=== PATIENT | male | born 1975 | race Caucasian/White ===

== ENCOUNTER 2017-03-15 06:02 | Inpatient (IN) | payer OTHER ==
[2017-03-15] MEDS ORDERED: LIDOCAINE 1% 2 ML INJ ID PRN (06:40)
[2017-03-15] MEDS ORDERED: LR 1,000 ML IV ONE (06:40)
[2017-03-15] MEDS ORDERED: MIDAZOLAM 2 MG/2 ML VIAL IVP ONE (06:53)
--- NOTE | 2017-03-15 06:54 | PDANEPAE ---
ANE History of Present Illness recurrent diverticulitis ANE Past Medical History - Cardiovascular History Hx Hypertension: No Hx Arrhythmias: No Hx Chest Pain: No Hx Coronary Artery / Peripheral Vascular Disease: No Hx CHF / Valvular Disease: No Hx Palpitations: No - Pulmonary History Hx COPD: No Hx Asthma/Reactive Airway Disease: No Hx Recent Upper Respiratory Infection: No Hx Oxygen in Use at Home: No Hx Sleep Apnea: No Sleep Apnea Screening Result - Last Documented: Negative - Neurologic History Hx Cerebrovascular Accident: No Hx Seizures: No Hx Dementia: No - Endocrine History Hx Diabetes: No Hypothyroid: No Hyperthyroid: No Obesity: no - Renal History Hx Renal Disorders: No - Liver History Hx Hepatic Disorders: No - Neurological & Psychiatric Hx Hx Neurological and Psychiatric Disorders: No - Cancer History Hx Cancer: No - Congenital Disorder History Hx Congenital Disorders: No - GI History GERD: no Hx Gastrointestinal Disorders: Yes Gastrointestinal History Comment: sigmoid diverticulitis-perforation w/ 2nd bout. - Other Health History Other Health History: none - Chronic Pain History Chronic Pain: No - Surgical History Prior Surgeries: ganglion cyst-hand ANE Review of Systems Review of Systems: - Exercise capacity METS (RN): 5 METS ANE Patient History - Allergies Allergies/Adverse Reactions: No Known Allergies Allergy (Verified 02/14/17 11:01) - Home Medications Home Medications: Propranolol HCl [Inderal 20mg (*)] 20 mg PO DAILY PRN 05/16/15 [Last Taken 3 Weeks Ago ~02/22/17] Acetaminophen [Tylenol 325mg (*)] 325 mg PO DAILY PRN 02/07/17 [Last Taken 1 Week Ago ~03/08/17] Herbals/Supplements -Info Only 1 ea PO DAILY 02/07/17 [Last Taken 1 Week Ago ~] - NPO status NPO Since - Liquids (Date): 03/14/17 NPO Since - Liquids (Time): 23:00 NPO Since - Solids (Date): 03/14/17 NPO Since - Solids (Time): 09:30 - Anes Hx Hx Anesthesia Complications (with details): no prior surgery - Smoking Hx Smoking Status: Former smoker - Alcohol Use Alcohol Use: Occasionally - Family Anes Hx Family Anes Hx: neg - N/A Family Hx Anesthesia Complications: none ANE Labs/Vital Signs - Vital Signs Blood Pressure: 126/83 Heart Rate: 77 Respiratory Rate: 18 O2 Sat (%): 94 Height: 182.88 cm Weight: 76.204 kg ANE Physical Exam - Airway Neck exam: FROM Mallampati Score: Class 1 Mouth exam: normal dental/mouth exam - Pulmonary Pulmonary: no respiratory distress, no rales or rhonchi, clear to auscultation - Cardiovascular Cardiovascular: regular rate and rhythym, no murmur, rub, or gallop - ASA Status ASA Status: II ANE Anesthesia Plan Anesthesia Plan: general endotracheal anesthesia
[2017-03-15] MEDS ORDERED: BUPIVACAINE 0.5% 30 ML SDV ONE ×2 (07:10→07:59)
[2017-03-15] MEDS ORDERED: cefOXitin SODIUM 2 GM in D5W 100 ML IV ONE (07:21)
--- NOTE | 2017-03-15 07:21 | PDHPUP ---
History & Physical Update H&P update statement: This history and physical update is based on an assessment of the patient which was completed after admission or registration (within 24 hours), but prior to the surgery/procedure. H&P update: H&P reviewed & patient examined, no change in patient's condition since H&P completed
[2017-03-15] MEDS ORDERED: ONDANSETRON 4 MG/2 ML VIAL ONE (07:27)
[2017-03-15] MEDS ORDERED: PROPOFOL/EMULSION 500 MG/50 ML BOTTLE IV ONE ×2 (07:27→09:56)
[2017-03-15] MEDS ORDERED: fentaNYL 100 MCG/2 ML INJ ONE ×5 (07:27→13:57)
[2017-03-15] MEDS ORDERED: REMIFENTANIL HCL 1 MG VIAL ONE ×2 (07:27→09:56)
[2017-03-15] MEDS ORDERED: DEXAMETHASONE 4 MG/ML VIAL ONE (07:27)
[2017-03-15] MEDS ORDERED: PROPOFOL 200 MG/20 ML VIAL ONE (07:27)
[2017-03-15] MEDS ORDERED: LIDOCAINE 2% 5 ML SDV ONE (07:28)
[2017-03-15] MEDS ORDERED: ROCURONIUM 100 MG/10 ML VIAL ONE (07:28)
[2017-03-15] MEDS ORDERED: PROMETHAZINE HCL 25 MG/ML INJ IVP PRN (08:32)
[2017-03-15] MEDS ORDERED: ONDANSETRON 4 MG/2 ML VIAL IVP PRN ×2 (08:32→11:19)
[2017-03-15] MEDS ORDERED: MEPERIDINE 25 MG/ML SYR IVP PRN (08:32)
[2017-03-15] MEDS ORDERED: HYDROCODONE/APAP 5/325 TAB PO PRN (08:32)
[2017-03-15] MEDS ORDERED: OXYCODONE/APAP 5/325 TAB PO PRN (08:32)
[2017-03-15] MEDS ORDERED: NALOXONE HCL 0.4 MG/ML INJ IVP PRN ×2 (08:32→13:50)
[2017-03-15] MEDS ORDERED: LR 500 ML IV PRN (08:32)
[2017-03-15] MEDS ORDERED: ACETAMINOPHEN 500 MG TAB PO PRN (08:32)
[2017-03-15] MEDS ORDERED: HYDROmorphone HCL/NS/PF 0.4 MG/2 ML SYR IVP PRN (11:20)
--- NOTE | 2017-03-15 11:21 | POSTOPPROG ---
Post Op Note Date of Operation: 03/15/17 Surgeon: Fredy Wilde [employer]: Dr. An Anesthesiologist: Dr. Crump Anesthesia: GET(General Endotracheal) Pre-op Diagnosis: Diverticulitis Post-op Diagnosis: same Procedure: Robotic sigmoid colectomy Inf/Abcess present in the surg proc area at time of surgery?: Yes Depth: Organ Space EBL: 50-100
--- NOTE | 2017-03-15 11:26 | POSTANESTH ---
Post Anesthetic Evaluation Cardiovascular Status: Normal, Stable Respiratory Status: Normal, Stable Level of Consciousness/Mental Status: Can Participate in Eval Pain Control: Adequate, Prn Tx Ordered Nausea/Vomiting Control: Adequate, Prn Tx Ordered Complications Possibly Related to Anesthesia: None Noted
[2017-03-15] MEDS ORDERED: HYDROmorphONE/DILAUDID 1 MG/ML INJ ONE ×3 (11:32→13:44)
[2017-03-15] MEDS: fentaNYL 100 MCG/2 ML INJ IVP PRN ×5 (11:32→13:59)
[2017-03-15] MEDS: HYDROmorphONE/DILAUDID 1 MG/ML INJ IVP PRN ×7 (11:34→13:45)
[2017-03-15] MEDS: HYDROmorphONE/DILAUDID 6 MG/30 ML PCA IV PRN (14:50)
[2017-03-15] MEDS: GABAPENTIN 300 MG CAP PO SCH ×2 (15:49→22:23)
[2017-03-15] MEDS ORDERED: NS BOLUS 1000 ML (Wide open) IV ONE (21:30)
[2017-03-15] MEDS ORDERED: PROPRANOLOL HCL 20 MG TAB PO PRN (21:55)
--- NOTE | 2017-03-16 00:57 | CPEKG ---
Heart Rate: 102 RR Interval: 588 P-R Interval: 140 QRSD Interval: 86 QT Interval: 320 QTC Interval: 417 P Butternut: 54 QRS Butternut: 14 T Wave Butternut: 24 EKG Severity - OTHERWISE NORMAL ECG - EKG Impression: SINUS TACHYCARDIA Electronically Signed By: Shahnaz Gonzales 16-Mar-2017 08:22:42
[2017-03-16] MEDS: LR 1,000 ML IV SCH ×4 (01:50→22:23)
--- NOTE | 2017-03-16 02:44 | GOP ---
[f rep st] OPERATIVE REPORT DATE OF OPERATION: 03/15/2017 SURGEON: Enrico Wilde MD PIPELINE SYSTEMS OPERATOR: Dr. An, whose presence was requested by me and medically necessary for the safe and timely completion of this case. ANESTHESIA: General endotracheal anesthesia. ANESTHESIOLOGIST: Dr. Crump. PREOPERATIVE DIAGNOSIS: Diverticulitis. POSTOPERATIVE DIAGNOSIS: Diverticulitis. PROCEDURE PERFORMED: Robotic sigmoid colectomy. FINDINGS: The patient had mild inflammation of the mid sigmoid colon. No other lesions were identified. ESTIMATED BLOOD LOSS: 50 cc. INDICATIONS: This is a 41-year-old male with a history of diverticulitis. Patient had recurrent bouts. Risks and benefits of the procedure were discussed with the patient, questions were answered, and he wished to proceed. DESCRIPTION OF PROCEDURE: The patient was in the supine position initially. After induction of adequate general endotracheal anesthesia, the patient was moved to the modified lithotomy position. Hebert catheter was inserted. He was then prepped and draped in the standard surgical fashion. 0.5% Marcaine was injected throughout the periumbilical area for local, and an 8 mm incision was made. The abdominal wall was elevated and a Veress needle was inserted. After noting proper pressures, the abdomen was insufflated with carbon dioxide. An 8 mm trocar was passed and the camera followed. There was no apparent damage from trocar placement. Four more ports were placed, two 8 mm ports in the left abdomen, one 5 mm port in the right upper quadrant, and one 15 mm port in the right lower quadrant. These were all placed under direct vision after injecting 0.5% Marcaine for local anesthesia. The abdomen was inspected. Mild adhesions were noted to the sigmoid colon and the anterior abdominal wall. Colon appeared minimally inflamed in this area. The remainder of the colon appeared normal. The small bowel and liver were normal as well. Dissection was initiated near the inferior mesenteric artery. The peritoneum was incised and the artery was dissected. In addition, the left ureter was identified. It was seen and preserved throughout the entire case. The inferior mesenteric artery was divided using the vessel sealing device. The mesentery was then transected down to the level of the peritoneal reflection. There was no inflammation seen in this area. The rectum was then cleared off for transection. The robotic stapler with a blue load was used to transect the colon. Two firings were required to complete this. The area was inspected and good viability was noted. The remainder of the mesentery was taken proximally up to the point of transection. This was approximately the mid descending colon. The mesentery and then the appendices epiploica were cleared off using blunt dissection and the vessel sealing device. The decision was made to proceed with intracorporeal anastomosis. A colotomy was made in the mid sigmoid colon. A 29 EEA anvil was selected and this was passed in through the enlarged 15 mm port. The anvil was placed into the colotomy and milked to the mid descending colon. Then 0 Prolene suture had been tied and spiked for identification purposes. The area of transection was identified again and the anvil and spike were just proximal to this. Two more firings of the blue robotic stapler were used to transect this proximal end of the sigmoid colon. The specimen was then moved to the side of the field. The anvil and spike were then milked to the staple line. The spike was extruded and the spike and suture were removed from the anvil itself. These were taken out of the abdomen without difficulty. The pelvis was thoroughly irrigated and aspirated. Good hemostasis was noted. The descending colon with the anvil in place was set into the pelvis. This ensured that there was no twisting or tension. Next, the 29 EEA stapler was advanced through the anus and the rectum. The spike on the stapler side was extended and this was mated to the anvil. The spike was withdrawn, the stapler was fired. Upon removing the stapler, 2 intact donuts were identified. The pelvis was then filled with irrigating saline and the proximal colon was occluded. Air was then insufflated via the rectum and no leak was identified. This test was repeated and again no leak was identified. The abdomen was then thoroughly irrigated and aspirated. Good hemostasis noted throughout. No other lesions identified. The specimen was then extracted at the right lower quadrant port site. After undocking the robot and clamping the colon specimen with a locking grasper, the right lower quadrant incision was enlarged using a #15 blade. This was carried down to subcutaneous tissue with Bovie cautery and blunt dissection. An Tru wound protector was placed. The specimen was then withdrawn through this and sent for permanent section. The area was inspected and good hemostasis noted throughout. The wound protector was withdrawn. The muscles closed in layers using 0 PDS in a running fashion. Subcutaneous tissue was approximated using 3- 0 Vicryl in interrupted fashion. Skin at all sites was closed with 4-0 Monocryl using a subcuticular stitch after irrigating each wound. Wounds were sterilely dressed. The patient was returned to the supine position and extubated. He was then taken to PACU in stable condition. COMPLICATIONS: None. DRAINS: None. /[id number]/MODL MTDD
[2017-03-16] MEDS: HYDROmorphONE/DILAUDID 6 MG/30 ML PCA IV PRN (05:32)
--- NOTE | 2017-03-16 09:38 | SOAPPROG ---
SOAP Progress Note Assessment/Plan: Assessment: Stable to improved. D/w patient at length: uncertain as to etiology of tachycardia, but likely combined blood loss and RUQ pain. As he has improved, will d/c valero and ambulate patient. Signs/symptoms of concern discussed. Plan advancing diet if he tolerates ambulation well. Will hold off on imaging for now, but may require if tachycardia/pain return. Plan: 03/16/17 09:35 Subjective: Patient feels markedly better. Minimal RUQ pain, which last PM he described as pinpoint crampy pain, worse with inspiration. + flatus - BM. Denies dizziness or nausea. Objective: Vital Signs Temp Pulse Resp BP Pulse Ox 37.2 C 96 18 101/64 97 03/16/17 08:00 03/16/17 08:00 03/16/17 08:00 03/16/17 08:00 03/16/17 08:00 Laboratory Results 03/16/17 05:15 03/16/17 05:15 03/15/17 03/16/17 03/17/17 05:59 05:59 05:59 Intake Total 4842 Output Total 975 Balance 3867 Alert, NAD Mild tachycardia but reg Abd soft, min inc TTP Inc C/D/I Site of pain last PM is at RUQ 5mm port site, no lesions noted. ICD10 Worksheet Patient Problems: Problems Problem Status Onset Perforated diverticulum of large intestine Acute
[2017-03-16] MEDS: GABAPENTIN 300 MG CAP PO SCH ×2 (10:48→21:32)
--- NOTE | 2017-03-16 16:18 | ASMTCMCOM ---
CM Note CM Note Notes: 03/16/2017 Case Management Note Reviewed chart. Pt had surgery on 03/15/2017 for diverticulitis. There are no PT or OT evals ordered at this time. 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 Case Management d/c poc: to be determined Case Management to follow. Date Signed: 03/16/2017 04:17 PM Electronically Signed By:Macey Vernon RN
[2017-03-16] MEDS: ACETAMINOPHEN 325 MG TAB PO PRN (18:40)
[2017-03-16] MEDS ORDERED: IOPAMIDOL (ISOVUE-300) 100 ML BTL ONE (20:18)
[2017-03-16] MEDS ORDERED: cefOXitin SODIUM 1 GM in D5W 50 ML IV ONE (21:56)
--- NOTE | 2017-03-16 22:13 | PDANEPAE ---
ANE History of Present Illness 41 yo for diagnostic laparoscopy s/p sigmoidectomy, now bleeding ANE Past Medical History - Cardiovascular History Hx Hypertension: No Hx Arrhythmias: No Hx Chest Pain: No Hx Coronary Artery / Peripheral Vascular Disease: No Hx CHF / Valvular Disease: No Hx Palpitations: No - Pulmonary History Hx COPD: No Hx Asthma/Reactive Airway Disease: No Hx Recent Upper Respiratory Infection: No Hx Oxygen in Use at Home: No Hx Sleep Apnea: No Sleep Apnea Screening Result - Last Documented: Negative - Neurologic History Hx Cerebrovascular Accident: No Hx Seizures: No Hx Dementia: No - Endocrine History Hx Diabetes: No Hypothyroid: No Hyperthyroid: No Obesity: no - Renal History Hx Renal Disorders: No - Liver History Hx Hepatic Disorders: No - Neurological & Psychiatric Hx Hx Neurological and Psychiatric Disorders: No - Cancer History Hx Cancer: No - Congenital Disorder History Hx Congenital Disorders: No - GI History GERD: no Hx Gastrointestinal Disorders: Yes Gastrointestinal History Comment: sigmoid diverticulitis-perforation w/ 2nd bout. - Other Health History Other Health History: none - Chronic Pain History Chronic Pain: No - Surgical History Prior Surgeries: ganglion cyst-hand ANE Review of Systems Review of Systems: - Exercise capacity METS (RN): 5 METS ANE Patient History - Allergies Allergies/Adverse Reactions: No Known Allergies Allergy (Verified 02/14/17 11:01) - Home Medications Home medications: home medication list seen and reviewed Home Medications: Propranolol HCl [Inderal 20mg (*)] 20 mg PO DAILY PRN 05/16/15 [Last Taken 3 Weeks Ago ~02/22/17] Acetaminophen [Tylenol 325mg (*)] 325 mg PO DAILY PRN 02/07/17 [Last Taken 1 Week Ago ~03/08/17] Herbals/Supplements -Info Only 1 ea PO DAILY 02/07/17 [Last Taken 1 Week Ago ~] - NPO status NPO Since - Liquids (Date): 03/16/17 NPO Since - Liquids (Time): 20:00 NPO Since - Solids (Date): 03/14/17 NPO Since - Solids (Time): 08:00 - Anes Hx Anes Hx: no prior problems - Smoking Hx Smoking Status: Former smoker - Alcohol Use Alcohol Use: Occasionally - Family Anes Hx Family Hx Anesthesia Complications: none ANE Labs/Vital Signs - Labs Result Diagrams: 03/16/17 16:03/16/17 05:15 - Vital Signs Blood Pressure: 139/87 Heart Rate: 129 Respiratory Rate: 16 O2 Sat (%): 92 Height: 6 ft Weight: 79.379 kg ANE Physical Exam - Airway Neck exam: FROM Mallampati Score: Class 2 - Pulmonary Pulmonary: no respiratory distress - Cardiovascular Cardiovascular: regular rate and rhythym - ASA Status ASA Status: II ANE Anesthesia Plan Anesthesia Plan: general endotracheal anesthesia
[2017-03-16] MEDS ORDERED: BUPIVACAINE 0.5% 30 ML SDV ONE (22:19)
[2017-03-16] MEDS ORDERED: REMIFENTANIL HCL 1 MG VIAL ONE (22:20)
[2017-03-16] MEDS ORDERED: fentaNYL 100 MCG/2 ML INJ ONE (22:20)
[2017-03-16] MEDS ORDERED: PROPOFOL/EMULSION 500 MG/50 ML BOTTLE IV ONE (22:20)
[2017-03-16] MEDS ORDERED: LR 1,000 ML IV ONE (22:21)
[2017-03-16] MEDS ORDERED: ONDANSETRON 4 MG/2 ML VIAL IVP PRN (23:51)
[2017-03-16] MEDS ORDERED: NALOXONE HCL 0.4 MG/ML INJ IVP PRN (23:51)
[2017-03-16] MEDS ORDERED: HYDROmorphONE/DILAUDID 1 MG/ML INJ IVP PRN (23:51)
--- NOTE | 2017-03-17 00:16 | POSTOPPROG ---
Post Op Note Date of Operation: 03/17/17 Surgeon: Fredy Wilde Anesthesiologist: Dr. Armstrong Anesthesia: GET(General Endotracheal) Pre-op Diagnosis: Abdominal hemorrhage Post-op Diagnosis: same Procedure: Laparoscopic evacuation of hematoma Findings: 500 cc old blood Inf/Abcess present in the surg proc area at time of surgery?: No EBL: 500-1000
[2017-03-17] MEDS ORDERED: fentaNYL 100 MCG/2 ML INJ ONE (00:30)
[2017-03-17] MEDS: fentaNYL 100 MCG/2 ML INJ IVP PRN ×2 (00:32→00:40)
[2017-03-17] MEDS: HYDROmorphONE/DILAUDID 6 MG/30 ML PCA IV PRN (01:32)
[2017-03-17] MEDS: GABAPENTIN 300 MG CAP PO SCH ×2 (05:19→21:25)
--- NOTE | 2017-03-17 06:40 | GOP ---
[f rep st] OPERATIVE REPORT DATE OF OPERATION: 03/16/2017 SURGEON: Enrico Wilde MD ANESTHESIA: General endotracheal anesthesia, per Dr. Armstrong. PREOPERATIVE DIAGNOSIS: Intraabdominal hemorrhage. POSTOPERATIVE DIAGNOSIS: Intraabdominal hemorrhage. PROCEDURE PERFORMED: Laparoscopic evacuation of intraabdominal hematoma. FINDINGS: Patient had a large amount of old blood centered in the pelvis. Some raw surfaces were se en to be bleeding minimally. One epiploic appendage appeared to have a small bleeding site. No othe r lesions were identified. ESTIMATED BLOOD LOSS: 500 cc of old blood. INDICATIONS: 41-year-old male who is status post robotic sigmoid colectomy on 03/15/2017. Patient w as found to have tachycardia and falling hematocrit. Risks and benefits of the procedure were discus sed with the patient, questions were answered, he wished proceed. DESCRIPTION OF PROCEDURE: Patient was in the supine position. After induction of adequate general e ndotracheal anesthesia, the patient was prepped and draped in the standard surgical fashion. The old periumbilical incision was opened with a #15 blade after injecting 0.5% Marcaine for local anesthesi a. The abdominal wall was elevated and a Veress needle was inserted. After noting proper pressures, the abdomen was insufflated with carbon dioxide. A 5 mm trocar was passed and the camera followed. There was no apparent damage from trocar placement. Two more ports were placed, both 5 mm ports, in old incisions, in the left and right abdomen. These were both placed under direct vision after inje cting 0.5% Marcaine for local anesthesia. A large amount of hematoma was identified in the pelvis. This was aspirated using the suction irriga tor device. The abdomen was then thoroughly irrigated with several liters of normal saline. The abd omen was then carefully inspected for bleeding. There was some raw surface on the left pelvic sidewa ll. There was also some oozing noted near the anastomosis. Due to locations, decision was made to u se Roderick for hemostasis in these areas. There was also a small epiploic appendage on the right side of the colon near the anastomosis that had some bleeding. This was cauterized. The Roderick was appl ied and the area was inspected. After waiting several minutes, no further oozing was identified. Th e remainder of the abdomen was inspected. No other lesions were identified. The trocars were withdr awn under direct vision and the pneumoperitoneum was allowed to escape. The right lower quadrant incision was inspected as there was hematoma detected on CT scan. Small sybil unt of hematoma was noted. There was a small bleeding area near the fascia. This was secured with a 0 Vicryl suture. The area was thoroughly irrigated and aspirated. No other lesions were identified . The subcutaneous tissue was approximated in layers using 3-0 Vicryl in interrupted fashion. Skin at all sites was closed with 4-0 Monocryl in a subcuticular stitch. Wound was sterilely dressed, the patient was extubated and taken to PACU in stable condition. /[id number]/MODL
[2017-03-17] MEDS ORDERED: PROTOCOL K PHOSPHATE 1 DOSE IV PRN (07:11)
[2017-03-17] MEDS: LR 1,000 ML IV SCH (07:46)
[2017-03-17] MEDS: OXYCODONE/APAP 5/325 TAB PO PRN ×3 (11:09→21:26)
--- NOTE | 2017-03-17 11:22 | SOAPPROG ---
SOAP Progress Note Assessment/Plan: Assessment: Stable to improved after lap hematoma evacuation. Good UOP, will d/c Hebert. Start clears. Discussed possibility of transfusion, will cont obs for now. Ambulate, IS Plan: 03/16/17 09:35 03/17/17 11:20 Subjective: Patient feels better, denies dizziness or HEAD. Abd pain minimal. Ambulating. No N/V, + loose BM. Objective: Vital Signs Temp Pulse Resp BP Pulse Ox 37.5 C 108 H 16 133/75 H 98 03/17/17 09:54 03/17/17 09:54 03/17/17 09:54 03/17/17 09:54 03/17/17 09:54 Laboratory Results 03/17/17 04:19 03/17/17 04:19 03/16/17 03/17/17 03/18/17 05:59 05:59 05:59 Intake Total 4842 4795 808 Output Total 897 467 1942 Balance 3867 4194 -542 Alert, NAD Slightly tachy but reg Abd soft, inc TTP Inc C/D/I ICD10 Worksheet Patient Problems: Problems Problem Status Onset Perforated diverticulum of large intestine Acute
--- NOTE | 2017-03-17 11:53 | CPEKG ---
Heart Rate: 116 RR Interval: 517 P-R Interval: 156 QRSD Interval: 100 QT Interval: 304 QTC Interval: 423 P Carson: 54 QRS Carson: 17 T Wave Carson: -8 EKG Severity - BORDERLINE ECG - EKG Impression: SINUS TACHYCARDIA EKG Impression: BORDERLINE T ABNORMALITIES, DIFFUSE LEADS Electronically Signed By: Shahnaz Gonzales 17-Mar-2017 18:54:48
[2017-03-17] MEDS: HYDROmorphone HCL/NS/PF 0.4 MG/2 ML SYR IVP PRN ×3 (15:41→23:59)
[2017-03-17] MEDS ORDERED: IOPAMIDOL (ISOVUE 370) 100 ML BTL IV ONE (18:21)
--- NOTE | 2017-03-17 20:54 | CPEKG ---
Heart Rate: 129 RR Interval: 465 P-R Interval: 144 QRSD Interval: 92 QT Interval: 292 QTC Interval: 428 P Jackson: 52 QRS Jackson: 16 T Wave Jackson: 0 EKG Severity - BORDERLINE ECG - EKG Impression: SINUS TACHYCARDIA EKG Impression: BORDERLINE T ABNORMALITIES, DIFFUSE LEADS Electronically Signed By: Shahnaz Gonzales 18-Mar-2017 08:28:17
[2017-03-17] MEDS: PIPERACILLIN/TAZO 4.5 GM/DEX 100 ML IV SCH (21:03)
--- NOTE | 2017-03-17 21:29 | GCON ---
[f rep st] CONSULTATION DATE OF CONSULTATION: 03/17/2017 REFERRING PHYSICIAN: Enrico Wilde MD REASON FOR CONSULTATION: Tachycardia. HISTORY OF PRESENT ILLNESS: A 41-year-old male with history of 2 episodes of prior diverticulitis, who underwent elective sigmoid colectomy 03/15/2017. He subsequently developed an intraabdominal hemorrhage and underwent evacuation of hematoma 03/17/2017. H and H at admission were 14 and 40, now 8.6/24. He has been tachycardic throughout the day. He has fever to 38.5 this evening at 1800. When I spoke to the patient, he said he did not feel feverish. No chills or sweats. He complained of crampy abdominal pain in the middle that feels like a gas bubble that needs to pop. He has felt his heart racing today, but denies chest pain, shortness of breath, palpitations, dizziness, or lightheadedness. No nausea or vomiting. The patient did note crampy abdominal pain similar to prior episodes of diverticulitis over the last couple weeks. He denied fevers or chills at home. REVIEW OF SYSTEMS: I completed a 10-point review of systems, negative except as noted in HPI. PAST MEDICAL HISTORY: Diverticulitis x2. Situational anxiety. MEDICATIONS: Propranolol p.r.n. PAST SURGICAL HISTORY: Ganglion cyst removal. FAMILY HISTORY: Mother with diverticulitis, hypertension. Dad healthy. SOCIAL HISTORY: Lives here in [place]. 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 Previously a heavy drinker, but quit a few years ago. He did have a couple drinks this weekend at a [employer]. Used to smoke cigarettes, but no longer. No illicits. HOME MEDICATIONS: Propranolol 20 mg p.r.n., herbal supplement, Tylenol. ALLERGIES: No known drug allergies. PHYSICAL EXAMINATION: VITAL SIGNS: Temperature 38.5, blood pressure 118/68, heart rate 110s to 130s, respirations 20, 94% on room air. GENERAL: male, sitting up in bed, mildly diaphoretic, but no acute distress. HEENT: PERRLA. EOMI. Oropharynx clear. CV: Tachy, regular. No murmurs, gallops, or rubs. LUNGS: Mildly diminished at bases, but no crackles or wheezing. ABDOMEN: Distended, firm, especially right side. Tenderness along the right lower abdomen. Laparoscopic surgical site healing. Hyperactive bowel sounds. Flank hematoma noted on the right. : No suprapubic tenderness. MUSCULOSKELETAL: 5/5 upper and lower extremity strength. NEURO: 2 through 12 intact. PSYCH: Alert and oriented x3. DATA REVIEWED: H and H are 8.6 and 24 (14 and 40 at admission). WBC 11.9 this morning. Lactate 2. Sodium 139, potassium 3.9, chloride 103, carbon dioxide 24 , creatinine 0.8, glucose 115, calcium 7.8, phosphorus 2.4, total bilirubin 0.6 , AST 16, ALT 32, total protein 4.6, albumin 2.5. EKG: Personally reviewed by 03/15/2017, sinus tachycardia. EK03/17/2017 at 11 a.m., sinus tachycardia, ST flattening diffusely. CTA: 03/17/2017, no evidence of PE. Increasing small effusions and compressive atelectasis, otherwise clear. No evidence of pulmonary edema. Abdominal CT: 03/16/2017, there is moderate intraperitoneal hemorrhage at and above the sigmoid colectomy site with a tiny acute sentinel bleed lateral to the staple line near the base of the hemorrhage. Hemorrhage and edema along the right abdominal wall near the abdominal musculature. Small amount of free intraperitoneal air. CURRENT MEDICATIONS: Gabapentin, Tylenol, Dilaudid p.r.n., lactated Ringer, lorazepam as needed, oxycodone. ASSESSMENT AND PLAN: 1. Tachycardia: Differential includes pulmonary embolus versus infection, volume depletion with blood loss. CTA was negative. Concern for infection, given new fever. Check stat lactate, blood cultures, and start Zosyn for broad coverage. Also contributing is acute blood loss anemia. H/H down from admission, but stable this elliot. Repeat tonight. Aggressive IVFs. 2. Sepsis: tachy, elevated WBC, concern for abd source. Stat blood cultures, lactate, IV Zosyn. Denies other infectious symptoms, but will check UA, CXR. BP stable. 3. Intraabdominal hemorrhage: Status post evacuation of hematoma last night. H/H pending.. May benefit from transfusion if trends down. 4. History of diverticulitis: Underwent elective sigmoid colectomy per Dr. Wilde. Again, concern for an intraabdominal infection covered with Zosyn. 5. Diet: Clear. 6. Deep venous thrombosis prophylaxis: Sequential compression devices. Thank you for this consultation. Will follow along. Please call with questions. Critical care time spent: 45 min evaluating patient, reviewing imaging and d/w patient the treatment plan. /[id number]/MODL MTDD
[2017-03-17] MEDS ORDERED: LR 1,000 ML IV ONE (21:30)
[2017-03-18] MEDS: OXYCODONE/APAP 5/325 TAB PO PRN ×2 (00:32→04:09)
[2017-03-18] MEDS: PIPERACILLIN/TAZO 4.5 GM/DEX 100 ML IV SCH ×4 (02:02→18:24)
[2017-03-18] MEDS: HYDROmorphone HCL/NS/PF 0.4 MG/2 ML SYR IVP PRN ×3 (06:04→09:49)
[2017-03-18] MEDS: GABAPENTIN 300 MG CAP PO SCH ×2 (08:10→19:59)
[2017-03-18] MEDS: ACETAMINOPHEN 325 MG TAB PO PRN (08:10)
[2017-03-18] MEDS ORDERED: PROTOCOL POTASSIUM 1 DOSE MISC PRN (08:49)
--- NOTE | 2017-03-18 09:10 | SOAPPROG ---
SOAP Progress Note Assessment/Plan: Assessment: Persistent tachycardia, now with increased abd pain. Check CT with contrast, d/ w patient re: concern for persistent hematoma/abscess, leak. Questions answered. Plan: 03/16/17 09:35 03/17/17 11:20 03/18/17 09:08 Subjective: Patient c/o increased LLQ pain. No N/V. Shoshana po. No BM's. Ambulating, voiding. Objective: Vital Signs Temp Pulse Resp BP Pulse Ox 38.9 C H 123 H 20 121/75 H 95 03/18/17 07:31 03/18/17 07:31 03/18/17 07:31 03/18/17 07:31 03/18/17 07:31 Laboratory Results 03/18/17 08:30 03/18/17 02:00 03/17/17 03/18/17 03/19/17 05:59 05:59 05:59 Intake Total 4795 3448 1300 Output Total 601 2435 Balance 4194 1013 1300 Alert, NAD Tachycardic Abd sl distended, diffuse TTP + guarding Inc C/D/I ICD10 Worksheet Patient Problems: Problems Problem Status Onset Perforated diverticulum of large intestine Acute
[2017-03-18] MEDS ORDERED: POTASSIUM CL 10 MEQ TAB PO ONE ×2 (09:43→20:12)
[2017-03-18] MEDS ORDERED: IOPAMIDOL (ISOVUE-300) 100 ML BTL ONE (10:18)
--- NOTE | 2017-03-18 12:34 | HOSPPROG ---
Hospitalist Progress Note Assessment/Plan: 41 yo m w diverticulitis and now w anastamotic leak and acute abdomen anastamotic leak: return to OR anemia: presumably 2/2 acute blood loss s/p 1 unit tachycardia: multifactorial but largely driven by leak/acute abdomen suspect will come down proph: rec LMWH when safe from surgical perspective dispo: inpt Subjective: case d/w dr you. ct w anasatamotic leak (images reviewed by me) Objective: Vital Signs Temp Pulse Resp BP Pulse Ox 38.0 C 121 H 20 127/78 H 95 03/18/17 11:27 03/18/17 11:27 03/18/17 11:27 03/18/17 11:27 03/18/17 11:27 Laboratory Results 03/18/17 08:30 03/18/17 02:00 03/17/17 03/18/17 03/19/17 05:59 05:59 05:59 Intake Total 4795 3448 1300 Output Total 601 2435 300 Balance 4194 1013 1000 - Physical Exam Constitutional: appears nourished, other (diaphoretic) Eyes: PERRL, anicteric sclera Ears, Nose, Mouth, Throat: moist mucous membranes, hearing normal Cardiovascular: regular rate and rhythym, no murmur, rub, or gallop Respiratory: no respiratory distress, no rales or rhonchi Gastrointestinal: guarding, distension, No normoactive bowel sounds, No rebound Genitourinary: no bladder fullness, No valero in urethra Skin: warm, normal color Musculoskeletal: full muscle strength, no muscle tenderness ICD10 Worksheet Patient Problems: Problems Problem Status Onset Perforated diverticulum of large intestine Acute
[2017-03-18] MEDS ORDERED: NS 1,000 ML IV ONE (12:43)
--- NOTE | 2017-03-18 13:25 | PDANEPAE ---
ANE History of Present Illness 41 yo male s/p sigmoidectomy for diverticulitis on 03/15 now with anastomotic leak/free air in abdomen for surgery. ANE Past Medical History - Cardiovascular History Hx Hypertension: No Hx Arrhythmias: No Hx Chest Pain: No Hx Coronary Artery / Peripheral Vascular Disease: No Hx CHF / Valvular Disease: No Hx Palpitations: No - Pulmonary History Hx COPD: No Hx Asthma/Reactive Airway Disease: No Hx Recent Upper Respiratory Infection: No Hx Oxygen in Use at Home: No Hx Sleep Apnea: No Sleep Apnea Screening Result - Last Documented: Negative Pulmonary History Comment: On O2 now. Pain requiring narcotics. - Neurologic History Hx Cerebrovascular Accident: No Hx Seizures: No Hx Dementia: No - Endocrine History Hx Diabetes: No Hypothyroid: No Hyperthyroid: No Obesity: no - Renal History Hx Renal Disorders: No - Liver History Hx Hepatic Disorders: No - Neurological & Psychiatric Hx Hx Neurological and Psychiatric Disorders: No - Cancer History Hx Cancer: No - Congenital Disorder History Hx Congenital Disorders: No - GI History GERD: no Hx Gastrointestinal Disorders: Yes Gastrointestinal History Comment: s/p sigmoidectomy for sigmoid diverticulitis- perforation w/ 2nd bout. Free air in abdomen due to leak at anastomosis site. - Other Health History Other Health History: none - Chronic Pain History Chronic Pain: No - Surgical History Prior Surgeries: ganglion cyst-hand ANE Review of Systems Review of Systems: - Exercise capacity METS (RN): 5 METS - Systems Constitutional: Reports: fever Cardiac: Reports: other (sinus tachycardia) Respiratory: Reports: other (on O2) Gastrointestinal: Reports: abdominal pain, abdominal distention, other ( indigestion) Hematologic/Lymphatic: Reports: anemia (s/p pRBC today) ANE Patient History - Allergies Allergies/Adverse Reactions: No Known Allergies Allergy (Verified 02/14/17 11:01) - Home Medications Home Medications: RX: Propranolol HCl [Inderal 20mg (*)] 20 mg PO DAILY PRN 05/16/15 [Last Taken 3 Weeks Ago ~02/22/17] Acetaminophen [Tylenol 325mg (*)] 325 mg PO DAILY PRN 02/07/17 [Last Taken 1 Week Ago ~03/08/17] RX: Herbals/Supplements -Info Only 1 ea PO DAILY 02/07/17 [Last Taken 1 Week Ago ~03/08/17] - NPO status NPO Since - Liquids (Date): 03/18/17 NPO Since - Liquids (Time): 11:00 NPO Since - Solids (Date): 03/14/17 NPO Since - Solids (Time): 12:00 - Anes Hx Anes Hx: no prior problems Hx Anesthesia Complications (with details): Pt believes he might have been combative on emergence from anesthesia. - Smoking Hx Smoking Status: Former smoker - Alcohol Use Alcohol Use: Occasionally - Family Anes Hx Family Anes Hx: neg - N/A Family Hx Anesthesia Complications: none ANE Labs/Vital Signs - Labs Result Diagrams: 03/18/17 08:30 03/18/17 02:00 - Vital Signs Blood Pressure: 127/78 Heart Rate: 121 Respiratory Rate: 20 O2 Sat (%): 95 Height: 182.88 cm Weight: 79.379 kg ANE Physical Exam - Airway Neck exam: FROM Mallampati Score: Class 2 - Pulmonary Pulmonary: clear to auscultation, reduced air movement (probably secondary to decrease effort from pain) - Cardiovascular Cardiovascular: tachycardia - ASA Status ASA Status: III, E ANE Anesthesia Plan Anesthesia Plan: general endotracheal anesthesia, epidural (Epidural in PACU only if conversion to open and pt has [id number] pain in PACU.) Lines/Monitors: arterial line (possible A-line depending on how EBL/case progresses.), additional IV
[2017-03-18] MEDS ORDERED: DEXMEDETOMIDINE HCL 400 MCG in NS 100 ML IV SCH (13:30)
[2017-03-18] MEDS ORDERED: ALBUMIN 5% 250 ML BOTTLE IV ONE ×2 (13:35→15:24)
[2017-03-18] MEDS ORDERED: LIDOCAINE 2% 5 ML SDV ONE (13:45)
[2017-03-18] MEDS ORDERED: RANITIDINE 50 MG/2 ML VIAL ONE (13:45)
[2017-03-18] MEDS ORDERED: DEXMEDETOMIDINE/NS 4MCG/ML 50 ML BTL IV ONE (13:45)
[2017-03-18] MEDS ORDERED: DEXAMETHASONE 4 MG/ML VIAL ONE (13:45)
[2017-03-18] MEDS ORDERED: HYDROmorphONE/DILAUDID 2 MG/ML INJ ONE (13:45)
[2017-03-18] MEDS ORDERED: PROPOFOL/EMULSION 500 MG/50 ML BOTTLE IV ONE (13:45)
[2017-03-18] MEDS ORDERED: ROCURONIUM 100 MG/10 ML VIAL ONE (13:45)
[2017-03-18] MEDS ORDERED: BUPIVACAINE 0.5% 30 ML SDV ONE (13:47)
[2017-03-18] MEDS ORDERED: DEXMEDETOMIDINE IN 0.9 % NACL 100 ML IV SCH ×2 (14:30→16:46)
[2017-03-18] MEDS ORDERED: PHENYLEPHRINE HCL 100 MCG/ML SYR ONE ×2 (14:30→15:52)
[2017-03-18] MEDS ORDERED: ONDANSETRON 4 MG/2 ML VIAL ONE (15:45)
[2017-03-18] MEDS ORDERED: ROCURONIUM 50 MG/5 ML VIAL ONE (15:45)
[2017-03-18] MEDS ORDERED: KETOROLAC 30 MG/1 ML SDV ONE (16:09)
[2017-03-18] MEDS ORDERED: SUGAMMADEX SODIUM 200 MG/2 ML VIAL IVP ONE (16:11)
--- NOTE | 2017-03-18 16:29 | ASMTCMCOM ---
CM Note CM Note Notes: Pt went to OR today, dc needs unclear. 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 Date Signed: 03/18/2017 04:29 PM Electronically Signed By:Mandi Fuller RN
[2017-03-18] MEDS ORDERED: NALOXONE HCL 0.4 MG/ML INJ IVP PRN (16:44)
[2017-03-18] MEDS ORDERED: LR 500 ML IV PRN (16:44)
[2017-03-18] MEDS ORDERED: HYDROmorphONE/DILAUDID 1 MG/ML INJ IVP PRN (16:44)
[2017-03-18] MEDS ORDERED: PHENYLEPHRINE HCL 100 MCG/ML SYR IVP PRN (16:44)
[2017-03-18] MEDS ORDERED: PROMETHAZINE HCL 25 MG/ML INJ IVP PRN (16:44)
[2017-03-18] MEDS ORDERED: ALBUTEROL 3 ML DEYVIAL IH PRN (16:44)
--- NOTE | 2017-03-18 16:47 | POSTANESTH ---
Post Anesthetic Evaluation Cardiovascular Status: Tx Hyper/Hypo-tension (Treating hypotension with maintenance fluids and intermittent IVF bolus as needed. Monitoring UOP.), Tx Over/Under Hydration Respiratory Status: Normal, Stable Level of Consciousness/Mental Status: Can Participate in Eval, Mildly Sleepy, Arousable Pain Control: Adequate, Prn Tx Ordered (On Precedex infusion for pain management.) Nausea/Vomiting Control: Adequate, Prn Tx Ordered Complications Possibly Related to Anesthesia: None Noted
[2017-03-18] MEDS ORDERED: ALBUMIN 5% 500 ML BOTTLE IV ONE (18:38)
[2017-03-18] MEDS ORDERED: ALBUMIN 5% 500 ML IV ONE (18:49)
[2017-03-18 19:00] LABS: PLATELET COUNT 175 10^3/uL (150-400)
[2017-03-18] MEDS ORDERED: PROTOCOL MAGNESIUM 1 DOSE IV PRN (19:12)
[2017-03-18] MEDS: FLUCONAZOLE/NaCl 100 ML IV SCH (19:59)
--- NOTE | 2017-03-18 21:28 | GCON ---
[f rep st] CONSULTATION DATE OF CONSULTATION: 03/18/2017 REASON FOR CONSULTATION: Intensive care unit evaluation and medical management of postoperative hypotension. HISTORY OF PRESENT ILLNESS: The patient is a healthy 41-year-old. On March 15, he underwent robotic sigmoid colectomy for recurrent diverticulitis. The day following surgery he was noted to be tachycardic and anemic. He was found to have an intra-abdominal bleed. He was taken back to surgery yesterday. Laparoscopic evacuation of a large amount of blood was performed. Some oozing was noted, and this was controlled. He did require 1 unit of blood associated with this bleed. He had fevers after the second procedure. A CT scan of the abdomen was done this morning. This was done with contrast. There was extravasation of oral contrast at his anastomotic site. He was thus taken back to the operating room this afternoon for repair of the leak. He was returned to the intensive care unit somewhat hypotensive, with blood pressures of 85/45 with mean arterial pressures in the low mid 50s. He is on lactated Ringer's, going into 50 currently. He did receive 500 of albumin in the operating room. He is on Precedex. Zosyn was started last night. PAST MEDICAL HISTORY: Largely unremarkable. He previously has had problems with diverticulitis. There is a history of situational anxiety for which he takes Inderal. MEDICATIONS: On admission he was on no other medications. 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 There is a history of alcohol and smoking in the past, none recently. [place] He is single. FAMILY HISTORY: Noncontributory. REVIEW OF SYSTEMS: Difficult to obtain at this time, as he remains sleepy, sedated postoperatively. He denies significant pain, shortness of breath, etc. PHYSICAL EXAMINATION: GENERAL: Reveals a gentleman who appears pale. VITAL SIGNS: Blood pressure is currently 86/52 with a mean arterial pressure of approximately 60. Nasal cannula oxygen is in place. Saturations are 100%. Respiratory rate is 14. Heart rate is 95 with sinus rhythm on the monitor. He is afebrile. HEENT is remarkable for dry mucous membranes. There is no jugular venous distention. No lymphadenopathy or thyromegaly. Pupils are equal. CHEST: Clear bilaterally. Breath sounds are diminished at the bases. HEART: Regular in rate and rhythm. There are no significant murmurs, no gallops. ABDOMEN: Quiet postoperatively. There is a new colostomy in place. A LAKHWINDER drain is present with serosanguineous material, possibly purulent. The abdomen has been closed along the midline. A Hebert catheter is in place. Some urine is in the bag. EXTREMITIES: Unremarkable for edema, cords, or tenderness. SKIN: Pale, without rash or lesions. NEUROLOGIC: Examination is intact. He is somewhat lethargic postoperatively, but is arousable and responds appropriately to simple questions. LABORATORY: Postoperative laboratory is all pending. Lactate is 1.8, potassium 3.8. ASSESSMENT: 1. Status post repeat abdominal surgery for an anastomotic leak. He now has a colostomy. A LAKHWINDER drain in place. This presumably is associated with peritonitis. He is on Zosyn. Antifungal coverage likely will be needed as well. 2. Postoperative hypotension: This is likely multifactorial secondary to anesthesia, Precedex, and narcotics. Volume depletion may be playing a role as well. He is getting lactated Ringer's and has received some Plasmanate. Postoperative hematocrit is pending. 3. Anemia: Preoperative hematocrit was 27. Postoperative hematocrit is pending. Blood may be needed if hematocrit has dropped significantly. 4. Metabolic: No current issues are identified. He will be placed on electrolyte replacement protocols. 5. Deep venous thrombosis prophylaxis: SCDs for now. Lovenox, once okayed by Surgery. PLAN AND RECOMMENDATIONS: The patient will be supported in the intensive care unit. Intravenous fluids will be continued, lactated Ringer's for now. This can be switched to normal saline with potassium with his next bag. Hematocrit will be awaited. If indicated, packed red blood cells can be given. A repeat bolus of 500 of albumin will be given. If the mean arterial pressures drop consistently below 60, a central line will be placed. Precedex will be decreased for now, as this may be affecting blood pressure. Appropriate pain control will be maintained. Antibiotics will be continued. Fluconazole will be added to his antibiotic regimen. Laboratory and chest x-ray will be followed. Further plans and recommendations will be made based on the results of the pending laboratories, and his clinical progress over the next 6-12 hours. /[id number]/MODL MTDD
[2017-03-18] MEDS: LR 1,000 ML IV SCH (21:41)
[2017-03-19] MEDS: PIPERACILLIN/TAZO 4.5 GM/DEX 100 ML IV SCH ×4 (02:37→21:14)
[2017-03-19] MEDS: HYDROmorphone HCL/NS/PF 0.4 MG/2 ML SYR IVP PRN ×6 (02:37→16:04)
--- NOTE | 2017-03-19 05:56 | GOP ---
[f rep st] OPERATIVE REPORT DATE OF OPERATION: 03/18/2017 SURGEON: Enrico Wilde MD PREOPERATIVE DIAGNOSIS: Sigmoid resection anastomosis leak. POSTOPERATIVE DIAGNOSIS: Sigmoid resection anastomosis leak. PROCEDURE PERFORMED: 1. Diagnostic laparoscopy. 2. Exploratory laparotomy. 3. Raheem procedure. FINDINGS: Patient had a defect in the anastomosis in the left anterior aspect. Moderate to signific ant contamination was identified. INDICATIONS: This is a 41-year-old male, status post robotic sigmoidectomy. Patient had progressive fever and tachycardia. CT scan demonstrated likely anastomotic leak. Risks and benefits of the pro cedure were discussed with the patient, questions were answered. He wished to proceed. DESCRIPTION OF PROCEDURE: Patient was in supine position initially. After induction of adequate gen eral endotracheal anesthesia, the patient was moved to the modified lithotomy position. He was then prepped and draped in the standard surgical fashion. This was done after a Hebert catheter was placed . The prior 8 mm port site in the periumbilical area was injected with 0.5% Marcaine for local anest hesia. The 8 mm incision was opened with a #15 blade and the abdominal wall was elevated. A Veress needle was inserted, and after noting proper pressures the abdomen was insufflated with carbon dioxid e. A 5 mm trocar was passed, and camera followed. There was no apparent damage from trocar placemen t. One more 5 mm port was placed in the prior port site. This was done under direct vision after in jecting 0.5% Marcaine as local anesthesia. The abdomen was inspected and there was a moderate to sig nificant amount of purulence and succus-type fluid. This was thoroughly aspirated. There was also s ignificant purulent exudate throughout the lower half of the abdomen. This was removed with blunt di ssection. Specimens of this were sent for culture. The colon was evaluated and approximately 1 to 1.5 cm defect was noted in the anterior left aspect of the colon. The colon just proximal and distal appeared to be unsuitable for attempt at primary clos ure. Decision was then made to perform a Raheem procedure. Exploratory laparotomy was created with a midline incision using a #10 blade. This was carried out i n the subcutaneous tissue with Bovie cautery and blunt dissection. The abdomen was entered and the s mall bowel packed with moist laparotomy pads. Abdomen was thoroughly irrigated and aspirated, and fu rther exudate was removed. The staple line was inspected and the above-noted findings were identifie d again. The anastomotic site was transected using a TA stapler of the Contour type. The staple line was then oversewn using 3-0 PDS in a running fashion. This was further reinforced on the distal rec jass stump with 3-0 Vicryl interrupted sutures. 2-0 Prolene sutures were placed and cut long on eithe r end of the rectal stump. The length and viability of the proximal colon were evaluated. Patient had excellent length and good viability throughout most of the descending colon. Ostomy site was chosen in the left lower quadran t. Ellipse of skin was excised sharply and the subcutaneous fat was removed using cautery. A crucia te incision was made in the anterior rectus sheath. The rectus muscle was then split and the abdomen entered. Wilmer's were then used to gently deliver the descending colon into the colostomy site. This had excellent reach, with no twisting or tension. This was then segregated and the abdomen was again reevaluated. The abdomen was irrigated and aspirated with several liters of warm saline. Once the effluent return ed clear, the sites were inspected and good hemostasis was noted throughout. The small bowel was ret urned its anatomic position and appeared quite viable. The fascia was then closed with #1 PDS in a r unning fashion. This was reinforced with 0 Vicryl internal retention sutures. This was completed wi th a clean closure set using new gown, gloves, and instruments. The wound was then irrigated and gela sed with satish. Prior to doing this, a LAKHWINDER drain was placed through a right lateral port site and s et above the rectal stump. This was secured with 3-0 nylon in interrupted fashion. After segregating the incisions site, the ostomy was matured. After carefully delivering and trimmin g the nonviable end sharply, good back bleeding was noted. This was controlled with maturing sutures . Tamra sutures were placed in the cardinal directions of 3-0 Vicryl in interrupted fashion. The o stomy was then further matured using 3-0 Vicryl in interrupted fashion. The ostomy appeared quite vi able and palpation revealed good patency. Wounds at all sites were dressed after an ostomy appliance was placed. Patient was returned to the supine position and extubated. He was taken to PACU in sta ble condition. /[id number]/MODL
[2017-03-19] MEDS: LR 1,000 ML IV SCH (06:34)
[2017-03-19] MEDS: GABAPENTIN 300 MG CAP PO SCH ×2 (08:35→21:13)
[2017-03-19] MEDS: FLUCONAZOLE/NaCl 100 ML IV SCH (08:52)
--- NOTE | 2017-03-19 09:13 | HOSPPROG ---
Hospitalist Progress Note Assessment/Plan: 41 yo m w diverticulitis and now w anastamotic leak and acute abdomen anastamotic leak: s/p resection w mónica's pouch and colostomy on zosyn fluconazole added rec ID consult no micro just yet anemia: presumably 2/2 acute blood loss s/p 1 unit stable follow daily tachycardia: multifactorial but largely driven by leak/acute abdomen suspect will come down less tachycardic today sepsis: source is peritonitis hemodynamics improved today valero: remove today proph: rec LMWH when safe from surgical perspective dispo: inpt Subjective: case d/w dr starr Objective: Vital Signs Temp Pulse Resp BP Pulse Ox 37.5 C 92 18 93/57 L 97 03/19/17 07:38 03/19/17 07:38 03/19/17 07:38 03/19/17 07:38 03/19/17 07:38 Microbiology 03/18/17 14:37 Gram Stain - Final Other - Tissue Laboratory Results 03/19/17 02:55 03/19/17 02:55 03/18/17 03/19/17 03/20/17 05:59 05:59 05:59 Intake Total 3448 3460.2 Output Total 2435 815 Balance 1013 2645.2 - Physical Exam Constitutional: no apparent distress, appears nourished Eyes: PERRL, anicteric sclera Ears, Nose, Mouth, Throat: moist mucous membranes, hearing normal Cardiovascular: regular rate and rhythym, no murmur, rub, or gallop Respiratory: no respiratory distress, no rales or rhonchi Gastrointestinal: other (midline incision, ostomy, mauro drain. distended. hypoactive to absent bowel sounds) Genitourinary: no bladder fullness, valero in urethra Skin: warm, normal color Musculoskeletal: full muscle strength Neurologic: AAOx3 Psychiatric: interacting appropriately ICD10 Worksheet Patient Problems: Problems Problem Status Onset Perforated diverticulum of large intestine Acute
[2017-03-19] MEDS: POTASSIUM Cl (KCl) 100 ML IV SCH ×3 (09:43→12:57)
--- NOTE | 2017-03-19 10:52 | SOAPPROG ---
SOAP Progress Note Assessment/Plan: Assessment: Improving. Still distended, will cont NPO. Ambulate, d/c valero. Plan: 03/16/17 09:35 03/17/17 11:20 03/18/17 09:08 03/19/17 10:51 Subjective: Patient feels better, pain controlled. No N/V. Objective: Vital Signs Temp Pulse Resp BP Pulse Ox 37.5 C 92 18 93/57 L 97 03/19/17 07:38 03/19/17 07:38 03/19/17 07:38 03/19/17 07:38 03/19/17 07:38 Microbiology 03/18/17 14:37 Gram Stain - Final Other - Tissue Laboratory Results 03/19/17 02:55 03/19/17 02:55 03/18/17 03/19/17 03/20/17 05:59 05:59 05:59 Intake Total 3448 3460.2 Output Total 2435 815 Balance 1013 2645.2 Alert, NAD RRR Abd distended, inc TTP Drsg C/D/I Ostomy viable ICD10 Worksheet Patient Problems: Problems Problem Status Onset Perforated diverticulum of large intestine Acute
[2017-03-19] MEDS ORDERED: K PHOS 10 MMOL in D5W 250 ML IV ONE (12:00)
[2017-03-19] MEDS: HYDROmorphONE/DILAUDID 6 MG/30 ML PCA IV PRN (16:06)
[2017-03-19] MEDS ORDERED: ACETAMINOPHEN 650 MG SUPP PR PRN (16:56)
--- NOTE | 2017-03-19 17:05 | PDINTPN ---
Metallographic Technician Progress Note Assessment/Plan: Assessment: Status post anastomotic leak, peritonitis. Doing well postoperatively. With hypotension resolved. On appropriate antibiotics, IV fluids. ID consult. History of diverticulitis, a recent partial colectomy, now with a colostomy. Status post intraperitoneal bleed, evacuated. Acute blood-loss anemia: Hematocrit currently 24. No significant active bleeding, some from via the colostomy. Will follow hematocrit. Metabolic: Hypokalemia, on replacement protocol. DVT prophylaxis: SCDs, consider enoxaparin tomorrow. Reflux: Will start pantoprazole. Plan: Continue care in the intensive care unit for now as step-down status. Follow CBC and laboratory. Add pantoprazole twice daily intravenously. Continue adequate pain control. Continue NPO status until bowel function returns. Discussed with patient, nursing and the ICU multi disciplinary team. Subjective: Doing well. Pain managed. Complains of intermittent significant reflux Objective: Vital Signs Temp Pulse Resp BP Pulse Ox 38.0 C 111 H 22 H 110/64 98 03/19/17 16:22 03/19/17 16:22 03/19/17 16:22 03/19/17 16:22 03/19/17 16:22 Microbiology 03/18/17 14:37 Gram Stain - Final Other - Tissue Laboratory Results 03/19/17 02:55 03/19/17 02:55 03/18/17 03/19/17 03/20/17 05:59 05:59 05:59 Intake Total 3448 3460.2 Output Total 2435 815 Balance 1013 2645.2 Physical Exam - Physical Exam General Appearance: alert, no apparent distress EENT: other (Nasal cannula 2 L) Neck: normal inspection (no JVD) Respiratory: lungs clear (Anteriorly), decreased breath sounds (At bases) Cardiac/Chest: regular rate, rhythm (Tachycardic at times, sinus) Abdomen: distended (Postop, quiet. Colostomy without significant output, some blood) Skin: warm/dry, pallor Extremities: No pedal edema Neuro/Psych: no motor/sensory deficits, No cognition abnormalities ICD10 Worksheet Patient Problems: Problems Problem Status Onset Perforated diverticulum of large intestine Acute
[2017-03-19] MEDS: PANTOPRAZOLE SODIUM 40 MG VIAL IVP SCH (19:18)
[2017-03-19] MEDS ORDERED: POTASSIUM Cl (KCl) 100 ML IV SCH (20:00)
[2017-03-19] MEDS: POTASSIUM Cl (KCl) 10 MEQ in NS 100 ML IV SCH ×3 (20:30→23:28)
[2017-03-19] MEDS: ACETAMINOPHEN 325 MG TAB PO PRN (21:13)
[2017-03-20] MEDS: PIPERACILLIN/TAZO 4.5 GM/DEX 100 ML IV SCH ×4 (02:46→20:21)
[2017-03-20] MEDS: LR 1,000 ML IV SCH (04:42)
[2017-03-20 05:02] LABS: PLATELET COUNT 226 10^3/uL (150-400)
[2017-03-20] MEDS ORDERED: POTASSIUM Cl (KCl) 100 ML IV SCH (06:15)
[2017-03-20] MEDS: POTASSIUM Cl (KCl) 10 MEQ in NS 100 ML IV SCH ×2 (06:31→08:39)
--- NOTE | 2017-03-20 07:19 | GCON ---
[f rep st] CONSULTATION INPATIENT INFECTIOUS DISEASE CONSULTATION REFERRING PHYSICIAN: John Monte MD REASON FOR REFERRAL: Peritonitis, sepsis. HISTORY OF PRESENT ILLNESS: Patient is a 41-year-old male, who was admitted to [facility] on 03/15/2017 for elective hemicolectomy secondary to diverticulitis. The patient underwent that surgery on 03/15/2017 without apparent immediate complication. He returned the following day second dominga to blood loss. The patient ended up having a small bleeding site that was corrected during that procedure and a large collection of old blood was evacuated. The patient had increasing abdominal pa in and it became evident the following day that the patient had developed a leak at the anastomotic s ite. A third surgery occurred on 03/18/2017 which resulted in an ostomy. The patient was started em pirically after the leak was discovered on fluconazole and Zosyn. Currently, he is resting comfortab ly in his hospital bed. He states he feels remarkably better following the most recent procedure. C laims to be passing some gas from his ostomy. PAST MEDICAL HISTORY: 1. Diverticulitis. 2. Situational anxiety. PAST SURGICAL HISTORY: 1. As above. 2. Status post ganglion cyst removal. ANTIBIOTICS: 1. Zosyn. 2. Fluconazole. ALLERGIES: The patient has no known drug allergies. 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 The patient smoked cigarettes in the past but has no longer continued doing that. No other illicit drugs. FAMILY HISTORY: Reviewed but noncontributory. REVIEW OF SYSTEMS: Other than that detailed above in history of present illness, a comprehensive 10- system review is negative. PHYSICAL EXAMINATION: VITAL SIGNS: Temperature maximum 38.0, temperature current is 38.0, heart rat e is 111, respiratory rate is 22, blood pressure is 110/64. GENERAL: The patient is a well-formed, well-nourished male, in no acute distress. He is not toxic in appearance. He is alert and oriented x3. He is in a pleasant demeanor. HEENT: Normocephalic for age. Atraumatic. No scleral icterus. No oral lesion or drainage from the nares. Eyes: Lids and conjunctivae are within normal limits. Pupils are equal and round bilaterally. NECK : Supple. No meningismus. LUNGS: Clear to auscultation bilaterally with good effort. HEART: Tac hycardic but regular. No murmur, rub, or gallop noted. No significant peripheral edema. ABDOMEN: Soft. Appropriately tender postoperatively. No mass noted. No rebound. Ostomy with some mild amou nt of bloody succus in the bag. SKIN: Warm and dry to the touch. No rash or lesion noted. MUSCULO SKELETAL: No muscular tenderness is noted. No joint line effusion or arthritis is seen. NEURO: Cr anial nerves 2 through 12 seem to be intact. Peripheral sensation seems intact in extremities. LABORATORY DATA: Patient has a CBC dated 03/19/2017, shows a white blood cell count of 4.16, hemoglo bin of 8.4, hematocrit of 24.3, and a platelet count of 184. Serum chemistries on 03/19/2017 show so dium 141, potassium 3.5, chloride 107, bicarbonate of 23, BUN of 12, and creatinine 0.8. MICROBIOLOGIC DATA: Patient has peritoneal tissue from 03/18/2017 submitted for culture. It is grow ing 2 distinct gram-negative rods, 1 lactose fermenting and 1 not lactose fermenting. ASSESSMENT: Peritonitis and sepsis, status post colon anastomosis leak. The washout and repair was apparently successful. We will cover him empirically with Zosyn and fluconazole and follow the cultu re of the peritoneal tissue. At this point, he should continue to be supported in the ICU until laina rly stabilized. PLAN: 1. Continue current antibiotic regimen. 2. Follow clinical course. 3. Follow up on culture data. /[id number]/MODL
--- NOTE | 2017-03-20 08:18 | HOSPPROG ---
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) anemia: presumably 2/2 acute blood loss s/p 1 unit stable follow daily tachycardia: multifactorial but largely driven by leak/acute abdomen suspect will come down less tachycardic today sepsis: source is peritonitis remains tachycardic but stable bp w good UOP valero: remove today proph: rec LMWH when safe from surgical perspective dispo: inpt Subjective: case d/e mathieu starr and ousmane Objective: Vital Signs Temp Pulse Resp BP Pulse Ox 37.7 C 113 H 18 132/77 H 94 03/20/17 04:25 03/20/17 04:25 03/20/17 04:25 03/20/17 04:25 03/20/17 04:25 Microbiology 03/18/17 14:37 Gram Stain - Final Other - Tissue Laboratory Results 03/20/17 04:44 03/20/17 04:44 03/19/17 03/20/17 03/21/17 05:59 05:59 05:59 Intake Total 3460.2 2606 Output Total 815 2375 Balance 2645.2 231 - Physical Exam Constitutional: no apparent distress, appears nourished Eyes: PERRL, anicteric sclera Ears, Nose, Mouth, Throat: moist mucous membranes, hearing normal Cardiovascular: no murmur, rub, or gallop, tachycardia Respiratory: no respiratory distress, no rales or rhonchi Gastrointestinal: distension (distended, ostomy w black output, hypoactive bowel sounds), other Genitourinary: No valero in urethra Skin: warm, normal color Musculoskeletal: full muscle strength Neurologic: AAOx3 ICD10 Worksheet Patient Problems: Problems Problem Status Onset Perforated diverticulum of large intestine Acute
[2017-03-20] MEDS: FLUCONAZOLE/NaCl 100 ML IV SCH (08:39)
[2017-03-20] MEDS: GABAPENTIN 300 MG CAP PO SCH ×2 (08:40→20:21)
[2017-03-20] MEDS: PANTOPRAZOLE SODIUM 40 MG VIAL IVP SCH ×2 (08:40→20:21)
[2017-03-20] MEDS ORDERED: K PHOS 10 MMOL in D5W 250 ML IV ONE (09:00)
[2017-03-20] MEDS: HYDROmorphONE/DILAUDID 6 MG/30 ML PCA IV PRN (09:02)
--- NOTE | 2017-03-20 09:48 | SOAPPROG ---
SOAP Progress Note Assessment/Plan: Assessment: Cont tachycardia. D/w Drs. Monte and Abundio, possibly hyperdynamic but will cont to monitor. Ambulate, cont NPO until distention improves. Plan: 03/16/17 09:35 03/17/17 11:20 03/18/17 09:08 03/19/17 10:51 03/20/17 09:45 Subjective: Patient states pain controlled, no N/V. Minimal ambulation. Objective: Vital Signs Temp Pulse Resp BP Pulse Ox 37.9 C 120 H 23 H 144/85 H 2 L 03/20/17 09:20 03/20/17 09:20 03/20/17 09:20 03/20/17 09:20 03/20/17 09:20 Microbiology 03/18/17 14:37 Gram Stain - Final Other - Tissue Laboratory Results 03/20/17 04:44 03/20/17 04:44 03/19/17 03/20/17 03/21/17 05:59 05:59 05:59 Intake Total 3460.2 2606 Output Total 815 2375 Balance 2645.2 231 Alert, NAD RRR Abd distended, inc TTP No erythema LAKHWINDER serosang ICD10 Worksheet Patient Problems: Problems Problem Status Onset Perforated diverticulum of large intestine Acute
[2017-03-20] MEDS ORDERED: ALBUMIN 5% 500 ML IV ONE (10:06)
[2017-03-20] MEDS ORDERED: ALTEPLASE 2 MG VIAL IVP PRN (10:07)
--- NOTE | 2017-03-20 10:39 | CPEKG ---
Heart Rate: 117 RR Interval: 513 P-R Interval: 148 QRSD Interval: 98 QT Interval: 320 QTC Interval: 447 P [place]: 39 QRS [place]: 6 T Wave [place]: 21 EKG Severity - OTHERWISE NORMAL ECG - EKG Impression: SINUS TACHYCARDIA Electronically Signed By: Shahnaz Gonzales 20-Mar-2017 19:27:19
[2017-03-20] MEDS ORDERED: METOPROLOL TARTRATE 5 MG/5 ML INJ IVP ONE (10:44)
--- NOTE | 2017-03-20 10:46 | PCMIDPN ---
Assessment/Plan: Assessment: Peritonitis and sepsis with hypovolemia and acute blood-loss anemia after anastomotic leakage following elective sigmoid colectomy. Patient continues to look mildly toxic and tachycardic. Somewhat diaphoretic. The CBC values are reassuring given that he is maintaining crit and his white cell count is normal. Patient continues on both Zosyn and fluconazole. Remain somewhat concerned about his overall clinical status. We will continue to watch him closely. Plan: 1. Continue both IV Zosyn and fluconazole. 2. Follow clinical appearance. 3. Continue to follow the identification of the gram-negative rods in his micro specimen from surgery. 03/20/17 10:52 Subjective: Patient is resting in his hospital bed in the ICU. He continues to feel generally poorly. However he does note that he has less abdominal pain that he would be expected. He appears mildly diaphoretic. However he is in good spirits and is pleasantly conversant. Fever recorded yesterday. Objective: Zosyn # 3 Fluconazole # 3 Vital Signs Temp Pulse Resp BP Pulse Ox 37.9 C 120 H 23 H 144/85 H 2 L 03/20/17 09:20 03/20/17 09:20 03/20/17 09:20 03/20/17 09:20 03/20/17 09:20 Microbiology 03/18/17 14:37 Gram Stain - Final Other - Tissue Laboratory Results 03/20/17 04:44 03/20/17 04:44 03/19/17 03/20/17 03/21/17 05:59 05:59 05:59 Intake Total 3460.2 2606 Output Total 815 2375 Balance 2645.2 231 - Physical Exam General Appearance: WD/WN, alert, no apparent distress, non-toxic Respiratory: lungs clear, normal breath sounds, No respiratory distress Cardiac/Chest: regular rate, rhythm, tachycardia Abdomen: soft, other (Ostomy with dark succus question bilious), No non-tender, No mass Skin: normal color, warm/dry, No rash Neuro/Psych: alert, normal mood/affect, oriented x 3 ICD10 Worksheet Patient Problems: Problems Problem Status Onset Perforated diverticulum of large intestine Acute
--- NOTE | 2017-03-20 11:16 | PDINTPN ---
First Coat Sander Progress Note Assessment/Plan: Assessment: Status post anastomotic leak, peritonitis. Doing well postoperatively. With hypotension resolved. On appropriate antibiotics, IV fluids. ID consult appreciated. Tachycardia: Sinus, no evidence of SVT. Blood pressure is a little higher as well. Somewhat unclear as to what is driving this. Abdomen not particularly concerning at this time. Surgery aware. May be multifactorial: Anemia, volume status, peritoneal inflammatory process. History of diverticulitis, a recent partial colectomy, now with a colostomy. Status post intraperitoneal bleed, evacuated. Acute blood-loss anemia: Hematocrit currently 25. No significant active bleeding, some from via the colostomy...follow. Metabolic: Hypokalemia, on replacement protocol. DVT prophylaxis: SCDs, consider enoxaparin tomorrow. Reflux: Will continue pantoprazole. Nutrition: NPO. Awaiting return of bowel function. Plan: Continue observation in the intensive care unit for now as step-down status. Metoprolol x1, continue if of benefit. Start prophylactic Lovenox. Follow CBC and laboratory. Continue pantoprazole.. Continue adequate pain control. Continue NPO status until bowel function returns. 25 min of critical care time spent directly with the patient. Discussed with patient, surgery, ID, nursing and the ICU multi disciplinary team. Subjective: Doing okay. Noticing palpitations/heart rate today, mild chest discomfort. Reflux is much better. Mild abdominal discomfort as expected Objective: Vital Signs Temp Pulse Resp BP Pulse Ox 37.9 C 120 H 23 H 144/85 H 2 L 03/20/17 09:20 03/20/17 09:20 03/20/17 09:20 03/20/17 09:20 03/20/17 09:20 Microbiology 03/18/17 14:37 Gram Stain - Final Other - Tissue Laboratory Results 03/20/17 04:44 03/20/17 04:44 03/19/17 03/20/17 03/21/17 05:59 05:59 05:59 Intake Total 3460.2 2606 Output Total 815 2375 Balance 2645.2 231 Laboratory Tests 03/20/17 04:44 Calcium 8.0 L Phosphorus 2.0 L Magnesium 2.4 H EKG: Sinus tachycardia, no acute changes Physical Exam - Physical Exam General Appearance: no apparent distress EENT: other (Nasal cannula at 2 L) Neck: normal inspection (No JVD) Respiratory: lungs clear (Anteriorly), decreased breath sounds (Decreased breath sounds at bases), No rales, No rhonchi Cardiac/Chest: tachycardia (Sinus, mildly hyperdynamic) Abdomen: distended, other (Dark bilious fluid in colostomy bag), No normal bowel sounds (Decreased), No non-tender (Mild tenderness) Extremities: No pedal edema Neuro/Psych: no motor/sensory deficits, No cognition abnormalities ICD10 Worksheet Patient Problems: Problems Problem Status Onset Perforated diverticulum of large intestine Acute
--- NOTE | 2017-03-20 16:44 | ASMTCMCOM ---
CM Note CM Note Notes: S/P anastomotic leak-peritonitis, ABX, Tachy, Anemia. Had a partial colostomy now colostomy. PT recommending out- pt Rehab. CM to follow. Date Signed: 03/20/2017 04:44 PM Electronically Signed By:Kirstie Snow LCSW
[2017-03-20] MEDS: NS W/ 20 KCl/L 1,000 ML IV SCH (20:24)
[2017-03-20] MEDS: ACETAMINOPHEN 325 MG TAB PO PRN (20:29)
[2017-03-21] MEDS: HYDROmorphONE/DILAUDID 6 MG/30 ML PCA IV PRN (01:50)
[2017-03-21] MEDS: PIPERACILLIN/TAZO 4.5 GM/DEX 100 ML IV SCH ×4 (03:26→20:11)
[2017-03-21] MEDS: ACETAMINOPHEN 325 MG TAB PO PRN (03:33)
[2017-03-21] MEDS: NS W/ 20 KCl/L 1,000 ML IV SCH ×2 (05:31→17:56)
--- NOTE | 2017-03-21 08:18 | SOAPPROG ---
SOAP Progress Note Assessment/Plan: Assessment: Cont tachycardia and fever. Check C Diff; consider CT if no improvement. Start clears. Cont LAKHWINDER. Plan: 03/16/17 09:35 03/17/17 11:20 03/18/17 09:08 03/19/17 10:51 03/20/17 09:45 03/21/17 08:17 Subjective: Patient feels better overall. Denies N/V. Ambulating, voiding. Objective: Vital Signs Temp Pulse Resp BP Pulse Ox 38.5 C H 114 H 21 H 141/82 H 93 03/21/17 03:35 03/21/17 03:35 03/21/17 03:35 03/21/17 03:35 03/21/17 03:35 Microbiology 03/18/17 14:37 Gram Stain - Final Other - Tissue Laboratory Results 03/20/17 04:44 03/21/17 03:40 03/20/17 03/21/17 03/22/17 05:59 05:59 05:59 Intake Total 2606 3407.8 Output Total 2375 2650 225 Balance 231 757.8 -225 Alert, NAD Tachy but reg Abd softer but slightly distended. Inc C/D/I LAKHWINDER serosang Ostomy with thin green OP ICD10 Worksheet Patient Problems: Problems Problem Status Onset Perforated diverticulum of large intestine Acute
--- NOTE | 2017-03-21 08:44 | PDINTPN ---
Cigar Maker Progress Note Assessment/Plan: Assessment/plan: * Status post anastomotic leak, peritonitis. Doing well postoperatively. With hypotension resolved. On appropriate antibiotics, IV fluids. ID consult appreciated. * Tachycardia: Sinus, no evidence of SVT. Blood pressure is a little higher as well. Somewhat unclear as to what is driving this. Abdomen not particularly concerning at this time. Surgery aware. May be multifactorial: Anemia, volume status, peritoneal inflammatory process. * History of diverticulitis, a recent partial colectomy, now with a colostomy. Status post intraperitoneal bleed, evacuated. * Acute blood-loss anemia: Hematocrit currently 25. No significant active bleeding, some from via the colostomy...follow. * Metabolic: Hypokalemia, on replacement protocol. * Fever-unclear source. Will discuss with Infectious Disease. * DVT prophylaxis: SCDs, consider enoxaparin tomorrow. * Gastroesophageal Reflux: Will continue pantoprazole. * Nutrition: Now on clear liquids Case discussed with Nursing and surgeon. 03/21/17 08:43 Subjective: Resting comfortably. Pain is tolerable. Hungry Objective: Vital Signs Temp Pulse Resp BP Pulse Ox 37.7 C 107 H 17 142/91 H 95 03/21/17 08:00 03/21/17 08:00 03/21/17 08:00 03/21/17 08:00 03/21/17 08:00 Microbiology 03/18/17 14:37 Gram Stain - Final Other - Tissue Laboratory Results 03/20/17 04:44 03/21/17 03:40 03/20/17 03/21/17 03/22/17 05:59 05:59 05:59 Intake Total 2606 3407.8 Output Total 2375 2650 225 Balance 231 757.8 -225 Laboratory Results 03/20/17 04:44 03/21/17 03:40 03/20/17 04:44 Calcium 8.0 mg/dL L mg/dL (8.5 - 10.4) Phosphorus 2.0 mg/dL L mg/dL (2.5 - 4.5) Magnesium 2.4 mg/dL H mg/dL (1.6 - 2.3) 03/18/17 14:37 Gram Stain - Final Other - Tissue Anaerobic Culture - Preliminary Gram Neg Paco Lactose Crt Gram Neg Paco Nonlactose Ferm. Physical Exam - Physical Exam General Appearance: alert, no apparent distress EENT: PERRL/EOMI, normal ENT inspection Neck: non-tender, full range of motion, supple, normal inspection Respiratory: chest non-tender, lungs clear, normal breath sounds Abdomen: soft, No normal bowel sounds (Diminished) Male Genitalia: deferred Rectal: deferred Skin: normal color, warm/dry Extremities: normal range of motion, non-tender, normal inspection, normal capillary refill Neuro/Psych: no motor/sensory deficits, alert, normal mood/affect, oriented x 3 ICD10 Worksheet Patient Problems: Problems Problem Status Onset Perforated diverticulum of large intestine Acute
[2017-03-21] MEDS: GABAPENTIN 300 MG CAP PO SCH ×2 (08:59→20:11)
[2017-03-21] MEDS: FLUCONAZOLE/NaCl 100 ML IV SCH (08:59)
[2017-03-21] MEDS: PANTOPRAZOLE SODIUM 40 MG VIAL IVP SCH ×2 (08:59→20:13)
--- NOTE | 2017-03-21 09:38 | HOSPPROG ---
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 tolerating jello. remains tachycardic Objective: Vital Signs Temp Pulse Resp BP Pulse Ox 37.7 C 107 H 17 142/91 H 95 03/21/17 08:00 03/21/17 08:00 03/21/17 08:00 03/21/17 08:00 03/21/17 08:00 Microbiology 03/18/17 14:37 Gram Stain - Final Other - Tissue Laboratory Results 03/21/17 03:44 03/21/17 03:40 03/20/17 03/21/17 03/22/17 05:59 05:59 05:59 Intake Total 2606 3407.8 Output Total 2375 2650 480 Balance 231 757.8 -480 - Physical Exam Constitutional: no apparent distress, appears nourished Eyes: PERRL, anicteric sclera Ears, Nose, Mouth, Throat: moist mucous membranes, hearing normal Cardiovascular: regular rate and rhythym, no murmur, rub, or gallop Respiratory: no respiratory distress, no rales or rhonchi, clear to auscultation Gastrointestinal: other (black ostomy output. bowel sounds present but hypoactive. distended) Genitourinary: No valero in urethra Skin: warm, normal color Musculoskeletal: full muscle strength, no muscle tenderness Neurologic: AAOx3 ICD10 Worksheet Patient Problems: Problems Problem Status Onset Perforated diverticulum of large intestine Acute
[2017-03-21] MEDS: KETOROLAC 15 MG/1 ML SDV IVP SCH ×2 (09:54→17:16)
--- NOTE | 2017-03-21 09:58 | PCMIDPN ---
Assessment/Plan: Assessment: Peritonitis and sepsis with after anastomotic leakage following elective sigmoid colectomy. Patient continues to look mildly toxic and tachycardic but improved over his appearance this weekend. The white blood cell count is slightly increased today. Patient continues on both Zosyn and fluconazole. Remain somewhat concerned about his overall clinical status. We will continue to watch him closely. Agree with imaging if other factors indicate. Plan: 1. Continue both IV Zosyn and fluconazole. 2. Follow clinical appearance. 3. Continue to follow the identification of the gram-negative rods in his micro specimen from surgery. Subjective: Patient resting in his hospital bed. No new complaints. States he actually feels better today than he did at any time this past weekend. Starting to have clear liquid diet. This is settling very well with him. Minimal abdominal pain. Acknowledges fever and chills overnight. Objective: Zosyn # 4 Fluconazole # 4 Vital Signs Temp Pulse Resp BP Pulse Ox 37.7 C 107 H 17 142/91 H 95 03/21/17 08:00 03/21/17 08:00 03/21/17 08:00 03/21/17 08:00 03/21/17 08:00 Microbiology 03/18/17 14:37 Gram Stain - Final Other - Tissue Laboratory Results 03/21/17 03:44 03/21/17 03:40 03/20/17 03/21/17 03/22/17 05:59 05:59 05:59 Intake Total 2606 3407.8 Output Total 2375 2650 480 Balance 231 757.8 -480 - Physical Exam General Appearance: WD/WN, alert, no apparent distress, non-toxic Respiratory: lungs clear, normal breath sounds, No respiratory distress Cardiac/Chest: regular rate, rhythm, tachycardia Abdomen: soft, distended (Slightly), No non-tender (Minimally tender), No mass, No peritoneal signs Skin: normal color, warm/dry, No rash Neuro/Psych: alert, normal mood/affect, oriented x 3 ICD10 Worksheet Patient Problems: Problems Problem Status Onset Perforated diverticulum of large intestine Acute
[2017-03-21] MEDS ORDERED: KETOROLAC 15 MG/1 ML SDV IVP SCH (14:00)
--- NOTE | 2017-03-21 14:22 | ASMTCMCOM ---
CM Note CM Note Notes: Patient has a new ostomy, He thought it would be helpful to have a home care liaison visit him after discharge for ostomy teaching. He reports that he will be homebound for a week. HC can be provided by any agency that contracts with [facility]. This CM is checking with [facility] [phone]. Date Signed: 03/21/2017 02:21 PM Electronically Signed By:Kirstie Snow LCSW
--- NOTE | 2017-03-21 17:05 | WOCRNPDOC ---
[facility] Advanced Assessment Note - Colostomy Assessment, Advanced Left Lower Abdomen Colostomy Stoma Colostomy Appliance Intact: Yes Colostomy Appliance Currently in Use: Two Piece Flat, 2 3/4, Cut to Fit Stoma Color: [place] Stoma Height: Protruding Colostomy Details: Raheem's Pouch Colostomy Comment/Treatment Details: Ostomy bag full to the stoma with dark yellow/green/black liquid effluent. Emptied bag with patient 2x. Demonstrated pouch emptying technique, discussed one vs. two piece, appliance change proceedure. Ostomy packet day one dropped off and discussed. Discussed accessories like belts, deoderants etc. Will check in tomorrow or next day for pouch change. Patient agreed to secure start carli and coloplast. Those will be initiated. After first pouch change supplies will be ordered. Patient is not yet certain what his preference would be and would like to wait before ordering supplies from [place].
[2017-03-21] MEDS: oxyCODONE IR 5 MG TAB PO PRN ×3 (17:16→23:05)
[2017-03-22] MEDS: oxyCODONE IR 5 MG TAB PO PRN ×4 (02:29→23:46)
[2017-03-22] MEDS: KETOROLAC 15 MG/1 ML SDV IVP SCH ×3 (02:29→18:14)
[2017-03-22] MEDS: PIPERACILLIN/TAZO 4.5 GM/DEX 100 ML IV SCH ×2 (02:29→08:34)
[2017-03-22] MEDS: NS W/ 20 KCl/L 1,000 ML IV SCH (05:00)
[2017-03-22] MEDS ORDERED: POTASSIUM CL 10 MEQ TAB PO ONE (06:46)
[2017-03-22] MEDS: PANTOPRAZOLE SODIUM 40 MG VIAL IVP SCH (08:33)
[2017-03-22] MEDS: GABAPENTIN 300 MG CAP PO SCH ×2 (08:34→19:48)
[2017-03-22] MEDS: FLUCONAZOLE/NaCl 100 ML IV SCH (08:34)
--- NOTE | 2017-03-22 09:57 | ASMTCMCOM ---
CM Note CM Note Notes: SEnt a referral to [facility] today. Patient may need RN and PT on discharge. Date Signed: 03/22/2017 09:57 AM Electronically Signed By:Kirstie Snow LCSW
--- NOTE | 2017-03-22 10:56 | PCMIDPN ---
Assessment/Plan: Assessment/Plan: 1. Peritonitis seoncdary to anastomotic leak wiht fecal contamination: - polymicrobial process - cx growing ESBl E.coli, Enterobacter - Currently on zosyn, fluconazole. - No Pseudomonas isolated. Will change to invanz and continue fluconazole -wbc slighlty up today. -blood cx 03/17 ngtd - c.diff neg 03/21 meds zosyn fluconazole Subjective: intermittent low grade temps. feels better with respect to abdomen. he was feeling a little sob this morning but better now. Objective: Vital Signs Temp Pulse Resp BP Pulse Ox 37.6 C 102 H 18 127/82 H 92 03/22/17 08:00 03/22/17 08:00 03/22/17 08:00 03/22/17 08:00 03/22/17 08:00 Microbiology 03/18/17 14:37 Gram Stain - Final Other - Tissue Laboratory Results 03/21/17 03:44 03/22/17 05:15 03/21/17 03/22/17 03/23/17 05:59 05:59 05:59 Intake Total 3407.8 3041 Output Total 2650 2590 325 Balance 757.8 451 -325 - Physical Exam General Appearance: alert, no apparent distress Respiratory: lungs clear Cardiac/Chest: regular rate, rhythm Extremities: No swelling Abdomen: other (bs quiet, abd distended, satish noted. mauro drain present. ) ICD10 Worksheet Patient Problems: Problems Problem Status Onset Perforated diverticulum of large intestine Acute
--- NOTE | 2017-03-22 11:14 | WOCRNPDOC ---
[facility] Advanced Assessment Note - Colostomy Assessment, Advanced Left Lower Abdomen Colostomy Stoma Colostomy Appliance Intact: Yes Colostomy Appliance Currently in Use: Two Piece Flat, 2 3/4 ( use 2 1/4 for patient. 2 3/4 it too big. ), Cut to Fit Stoma Color: Red Stoma Turgor: Moist, Shiny Stoma Shape: Oval (slightly) Stoma Height: Protruding Mucocutaneus Junction: Intact Colostomy Size - Head-to-Toe Length X Width X Depth (cm): 35mm Colostomy Details: Raheem's Pouch Peristomal Skin: Intact Colostomy Comment/Treatment Details: Patient tachycardic and diaphoretic. RN aware. First pouch change done with patient. He did visualize his stoma, although it took a bit of time. Os is pointed up at 2 oclock. Effluent is dark greenish but has some thicker pieces in it rather than just liquid. Steps of the pouch change reviewed and supplies from [facility] will be ordered to be delivered to his home. He requests two piece carli appliance. Please use template left in ostomy bucket for pouch changes and remeasure weekly. Ostomy teach 3 will be done later this week with patient participation.
--- NOTE | 2017-03-22 11:40 | SOAPPROG ---
SOAP Progress Note Assessment/Plan: Assessment: Improving. Poss advance diet, po pain meds. Ambulate, IS. Plan: 03/16/17 09:35 03/17/17 11:20 03/18/17 09:08 03/19/17 10:51 03/20/17 09:45 03/21/17 08:17 03/22/17 11:40 Subjective: Patient feels better, minimal pain, flaca po. No N/V. Some ambulation. Objective: Vital Signs Temp Pulse Resp BP Pulse Ox 37.6 C 102 H 18 127/82 H 92 03/22/17 08:00 03/22/17 08:00 03/22/17 08:00 03/22/17 08:00 03/22/17 08:00 Microbiology 03/18/17 14:37 Gram Stain - Final Other - Tissue Laboratory Results 03/21/17 03:44 03/22/17 05:15 03/21/17 03/22/17 03/23/17 05:59 05:59 05:59 Intake Total 3407.8 3041 Output Total 2650 2590 325 Balance 757.8 451 -325 Alert, NAD RRR Abd sl distended but softer, NTTP Inc C/D/I LAKHWINDER serosang Ostomy functioning. ICD10 Worksheet Patient Problems: Problems Problem Status Onset Perforated diverticulum of large intestine Acute
[2017-03-22] MEDS: ERTAPENEM 1 GM VIAL IVP SCH (11:53)
--- NOTE | 2017-03-22 12:33 | PDINTPN ---
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 Doing well postoperatively. With hypotension resolved. On appropriate antibiotics, IV fluids. * Tachycardia: Improved * History of diverticulitis, a recent partial colectomy, now with a colostomy. Status post intraperitoneal bleed, evacuated. * Acute blood-loss anemia: Hematocrit currently 25. No significant active bleeding, some from via the colostomy...follow. * Metabolic: Hypokalemia, on replacement protocol. * Fever-unclear source. Will discuss with Infectious Disease. * DVT prophylaxis: SCDs, consider enoxaparin tomorrow. * Gastroesophageal Reflux: Will continue pantoprazole. * Nutrition: Now on clear liquids * PT/OT-begin ambulation. * Disposition-likely okay for transfer to floor Case discussed with Nursing and surgeon. Begin ambulation Subjective: Feels markedly improved. Pain is better. Wishes to ambulate. Objective: Vital Signs Temp Pulse Resp BP Pulse Ox 37.7 C 93 22 H 132/82 H 93 03/22/17 11:46 03/22/17 11:46 03/22/17 11:46 03/22/17 11:46 03/22/17 11:46 Microbiology 03/18/17 14:37 Gram Stain - Final Other - Tissue Laboratory Results 03/21/17 03:44 03/22/17 05:15 03/21/17 03/22/17 03/23/17 05:59 05:59 05:59 Intake Total 3407.8 3041 Output Total 2650 2590 325 Balance 757.8 451 -325 - Time Spent With Patient Time Spent With Patient: 25 min of time spent with patient, more than half spent in counseling or coordination of care Physical Exam - Physical Exam General Appearance: alert, no apparent distress EENT: PERRL/EOMI, normal ENT inspection Neck: non-tender, full range of motion, supple, normal inspection Respiratory: chest non-tender, lungs clear, normal breath sounds Cardiac/Chest: normal peripheral pulses, regular rate, rhythm Abdomen: soft, No normal bowel sounds (bowel sounds are diminished), No non- tender (Appropriately tender) Male Genitalia: deferred Rectal: deferred Skin: normal color, warm/dry Extremities: normal range of motion, non-tender, normal inspection, normal capillary refill Neuro/Psych: no motor/sensory deficits, alert, normal mood/affect, oriented x 3 ICD10 Worksheet Patient Problems: Problems Problem Status Onset Perforated diverticulum of large intestine Acute
[2017-03-22] MEDS: ENOXAPARIN 40 MG/0.4 ML SYR SC SCH (15:48)
[2017-03-22] MEDS: HYDROmorphone HCL/NS/PF 0.4 MG/2 ML SYR IVP PRN (15:48)
--- NOTE | 2017-03-22 16:49 | HOSPPROG ---
Hospitalist Progress Note Assessment/Plan: * Diverticulitis s/p robotic sigmoid colectomy * Anastomotic leak s/p Carrasco procedure * Peritonitis with sepsis - ESBL E.coli, Enterobacter -invanz/fluconazole * Intra-abdominal hemorrhage s/p evacuation * Acute blood loss anemia -H/H stable * Ileus - resolving - tolerating PO Subjective: Feels weaker today, CRAB PICKER pump just DC'd so more pain Objective: Vital Signs Temp Pulse Resp BP Pulse Ox 37.4 C 96 22 H 129/80 H 98 03/22/17 15:43 03/22/17 15:43 03/22/17 15:43 03/22/17 15:43 03/22/17 15:43 Microbiology 03/18/17 14:37 Gram Stain - Final Other - Tissue Laboratory Results 03/21/17 03:44 03/22/17 05:15 03/21/17 03/22/17 03/23/17 05:59 05:59 05:59 Intake Total 3407.8 3041 5020 Output Total 2650 2590 840 Balance 757.8 451 4180 d/w Dr. Benítez - keep SDU today CT abd/pelvis - ileus, bowel leak - Physical Exam Constitutional: no apparent distress, appears nourished, not in pain Cardiovascular: regular rate and rhythym, no murmur, rub, or gallop Respiratory: no respiratory distress, no rales or rhonchi, clear to auscultation Gastrointestinal: normoactive bowel sounds, soft, non-tender abdomen, no palpable masses Skin: no rashes or abrasions, no fluctuance, no induration Neurologic: AAOx3, sensation intact bilaterally Psychiatric: interacting appropriately, not anxious, not encephalopathic, thought process linear ICD10 Worksheet Patient Problems: Problems Problem Status Onset Perforated diverticulum of large intestine Acute
[2017-03-23] MEDS: KETOROLAC 15 MG/1 ML SDV IVP SCH ×3 (01:57→17:56)
[2017-03-23] MEDS: oxyCODONE IR 5 MG TAB PO PRN ×3 (05:42→20:04)
[2017-03-23 06:18] LABS: PLATELET COUNT 336 10^3/uL (150-400)
--- NOTE | 2017-03-23 08:38 | PDINTPN ---
Quality Controller Progress Note Assessment/Plan: Assessment/plan: * Status post anastomotic leak, peritonitis. Doing well postoperatively. With hypotension resolved. On appropriate antibiotics, IV fluids. * Tachycardia: Improved * History of diverticulitis, a recent partial colectomy, now with a colostomy. Status post intraperitoneal bleed, evacuated. * Acute blood-loss anemia: Hematocrit still low but stable No significant active bleeding, some from via the colostomy...follow. * Metabolic: Hypokalemia, on replacement protocol. * [id number]. WBC count up -follow * DVT prophylaxis: SCDs, consider enoxaparin tomorrow. * Gastroesophageal Reflux: Will continue pantoprazole. * Nutrition: Now on clear liquids * PT/OT-begin ambulation. * Disposition-will transfer to floor Subjective: Feels better today. Appetite is improved. Pain is well tolerated. Objective: Vital Signs Temp Pulse Resp BP Pulse Ox 37.6 C 110 H 22 H 139/87 H 92 03/23/17 07:49 03/23/17 07:49 03/23/17 07:49 03/23/17 07:49 03/23/17 07:49 Microbiology 03/17/17 20:45 Blood Culture - Final Blood 03/17/17 20:45 Blood Culture - Final Blood 03/18/17 14:37 Gram Stain - Final Other - Tissue Laboratory Results 03/23/17 05:28 03/23/17 05:28 03/22/17 03/23/17 03/24/17 05:59 05:59 05:59 Intake Total 3041 6427 Output Total 2590 1670 Balance 451 6437 Laboratory Results 03/23/17 05:28 03/23/17 05:28 03/23/17 05:28 Calcium 8.1 mg/dL L mg/dL (8.5 - 10.4) Phosphorus 3.5 mg/dL D mg/dL (2.5 - 4.5) 03/18/17 14:37 Gram Stain - Final Other - Tissue Anaerobic Culture - Preliminary Escherichia Coli Esbl Enterobacter Cloacae - Time Spent With Patient Time Spent With Patient: 25 min of time spent with patient, half of which involved with counseling or coordination of care Physical Exam - Physical Exam General Appearance: alert, no apparent distress EENT: PERRL/EOMI, normal ENT inspection Neck: non-tender, full range of motion, supple, normal inspection Respiratory: chest non-tender, lungs clear, normal breath sounds Cardiac/Chest: normal peripheral pulses, regular rate, rhythm Peripheral Pulses: 2+: carotid (R), carotid (L), femoral (R), femoral (L), dorsalis-pedis (R), dorsalis-pedis (L) Abdomen: soft, No non-tender (Appropriately), No distended Male Genitalia: deferred Rectal: deferred Skin: normal color, warm/dry Neuro/Psych: no motor/sensory deficits, alert, normal mood/affect, oriented x 3 ICD10 Worksheet Patient Problems: Problems Problem Status Onset Perforated diverticulum of large intestine Acute
[2017-03-23] MEDS: GABAPENTIN 300 MG CAP PO SCH ×2 (09:45→20:03)
[2017-03-23] MEDS: FLUCONAZOLE/NaCl 100 ML IV SCH (09:49)
[2017-03-23] MEDS: ERTAPENEM 1 GM VIAL IVP SCH (09:51)
[2017-03-23] MEDS: ENOXAPARIN 40 MG/0.4 ML SYR SC SCH (09:54)
--- NOTE | 2017-03-23 10:56 | SOAPPROG ---
SOAP Progress Note Assessment/Plan: Assessment: Improving. Reg diet. Cont ambulation, IS. Consider d/c LAKHWINDER drain, po abx. Agree with transfer. D/w patient, questions answered. Plan: 03/16/17 09:35 03/17/17 11:20 03/18/17 09:08 03/19/17 10:51 03/20/17 09:45 03/21/17 08:17 03/22/17 11:40 03/23/17 10:55 Subjective: Patient feels better, flaca po, no N/V. Ambulating, voiding. Objective: Vital Signs Temp Pulse Resp BP Pulse Ox 37.6 C 110 H 22 H 139/87 H 92 03/23/17 07:49 03/23/17 07:49 03/23/17 07:49 03/23/17 07:49 03/23/17 07:49 Microbiology 03/17/17 20:45 Blood Culture - Final Blood 03/17/17 20:45 Blood Culture - Final Blood 03/18/17 14:37 Gram Stain - Final Other - Tissue Laboratory Results 03/23/17 05:28 03/23/17 05:28 03/22/17 03/23/17 03/24/17 05:59 05:59 05:59 Intake Total 3041 6427 400 Output Total 2590 1670 300 Balance 451 4757 100 Alert, NAD RRR Abd distended but soft, inc TTP Inc C/D/I LAKHWINDER serosang Ostomy viable ICD10 Worksheet Patient Problems: Problems Problem Status Onset Perforated diverticulum of large intestine Acute
[2017-03-23] MEDS: ACETAMINOPHEN 325 MG TAB PO PRN (16:09)
--- NOTE | 2017-03-23 18:25 | HOSPPROG ---
Hospitalist Progress Note Assessment/Plan: Assessment: 41 yo M p/w peritonitis 2/2 anastomotic leak s/p colectomy for diverticulitis Plan: # Diverticulitis s/p robotic sigmoid colectomy by Dr. Wilde, remains primary # Anastomotic leak s/p Carrasco procedure # Peritonitis with sepsis (evidenced by ICDS-2 criteria w/ autonomic dysregulation in setting of infxn, w/ leukocytosis/fever/tachycardia/hypotension ) - ESBL E.coli, Enterobacter on Cx results - d/w Dr. Lambert, he recommends ongoing use of invanz/fluconazole and if WBC continues to rise, will repeat abd CT # Intra-abdominal acute hemorrhage s/p evacuation # Acute blood loss anemia - Hgb 8 today, cont to monitor, no transfusion today # Acute post-op Ileus - resolving - tolerating PO # Acute atelectasis - present on CXR (personally interpreted), educated patient re: IS High level of medical complexity 2/2 above, high risk or worsening morbidity, monitoring for evolving infxn closely. Hosp Medicine will continue to consult on daily care. Subjective: tolerating diet, pain managed on PO Rx Objective: Vital Signs Temp Pulse Resp BP Pulse Ox 38.3 C 112 H 24 H 145/87 H 94 03/23/17 15:56 03/23/17 15:56 03/23/17 15:56 03/23/17 15:56 03/23/17 15:56 Microbiology 03/18/17 14:37 Gram Stain - Final Other - Tissue 03/17/17 20:45 Blood Culture - Final Blood 03/17/17 20:45 Blood Culture - Final Blood Laboratory Results 03/23/17 05:28 03/23/17 05:28 03/22/17 03/23/17 03/24/17 05:59 05:59 05:59 Intake Total 3041 6427 1570 Output Total 2590 1670 700 Balance 451 0153 870 - Physical Exam Constitutional: no apparent distress, appears nourished, not in pain, uncomfortable Cardiovascular: regular rate and rhythym, no murmur, rub, or gallop, No edema Respiratory: inspiratory crackles (bilat bases), No reduced air movement, No expiratory wheeze, No bronchial breath sounds, No respiratory distress Gastrointestinal: tenderness (mild), distension (mild), other (drain in place), No normoactive bowel sounds (hypoactive bowel sounds) Skin: other (mild erythema around satish, no pustular exudate), No induration, No fluctuance Neurologic: AAOx3, No weakness Psychiatric: interacting appropriately, not anxious, not encephalopathic, thought process linear ICD10 Worksheet Patient Problems: Problems Problem Status Onset Perforated diverticulum of large intestine Acute
[2017-03-23] MEDS ORDERED: LACTULOSE 20 GM/30 ML UDCUP PO PRN (18:31)
[2017-03-23] MEDS ORDERED: MAGNESIUM HYDROXIDE 30 ML UDCUP PO PRN (18:31)
[2017-03-23] MEDS ORDERED: POLYETHYLENE GLYCOL 3350 17 GM PKT PO PRN (18:31)
[2017-03-23] MEDS ORDERED: BISACODYL 10 MG SUPP PR PRN (18:31)
--- NOTE | 2017-03-23 18:44 | PCMIDPN ---
Assessment/Plan: Assessment/Plan: * Sepsis due to peritonitis associated with anastomotic leak after sigmoid colectomy: Slow clinical improvement. Culture showing growth of ESBL producing E coli as well as Enterobacter cloacae. Both isolates susceptible to ertapenem. Continue ertapenem and fluconazole. ESBL/contact precautions were reviewed with patient today. * Leukocytosis: Continue to follow with plans for repeat CBC in a.m.. If white blood cell count continues to increase, will need to repeat CT scan to assess for postoperative abscess formation which is a risk after anastomotic leak. Clinical findings and plan were reviewed with patient and Dr. Wagner. 03/23/17 18:41 Subjective: Patient feels like he is on a upward trajectory. Less sense of fever and decreasing abdominal discomfort. Objective: Vital Signs Temp Pulse Resp BP Pulse Ox 38.3 C 112 H 24 H 145/87 H 94 03/23/17 15:56 03/23/17 15:56 03/23/17 15:56 03/23/17 15:56 03/23/17 15:56 Microbiology 03/18/17 14:37 Gram Stain - Final Other - Tissue 03/17/17 20:45 Blood Culture - Final Blood 03/17/17 20:45 Blood Culture - Final Blood Laboratory Results 03/23/17 05:28 03/23/17 05:28 03/22/17 03/23/17 03/24/17 05:59 05:59 05:59 Intake Total 3041 6427 1570 Output Total 2590 1670 710 Balance 451 4757 860 Ertapenem # 2, antibiotics # 6 Fluconazole # 6 Abdominal cultures with growth of ESBL producing E coli and Enterobacter cloacae - Physical Exam General Appearance: alert, no apparent distress, non-toxic EENT: No scleral icterus, No thrush Respiratory: lungs clear, No respiratory distress Cardiac/Chest: tachycardia Extremities: No inflammation Abdomen: distended (Mild), tender (Mild tenderness diffusely), other (Incision line intact with mild erythema inferiorly without drainage) Skin: No rash ICD10 Worksheet Patient Problems: Problems Problem Status Onset Perforated diverticulum of large intestine Acute
[2017-03-23] MEDS: SENNOSIDES/DOCUSATE SODIUM TAB PO SCH (20:04)
[2017-03-24] MEDS: KETOROLAC 15 MG/1 ML SDV IVP SCH ×3 (02:09→17:36)
[2017-03-24] MEDS: oxyCODONE IR 5 MG TAB PO PRN ×3 (02:10→18:23)
[2017-03-24 06:37] LABS: PLATELET COUNT 419 10^3/uL (150-400)
[2017-03-24] MEDS: ERTAPENEM 1 GM VIAL IVP SCH (08:06)
[2017-03-24] MEDS: GABAPENTIN 300 MG CAP PO SCH ×2 (08:09→22:18)
[2017-03-24] MEDS: SENNOSIDES/DOCUSATE SODIUM TAB PO SCH ×2 (08:09→22:19)
[2017-03-24] MEDS: FLUCONAZOLE/NaCl 100 ML IV SCH (08:10)
[2017-03-24] MEDS: ENOXAPARIN 40 MG/0.4 ML SYR SC SCH (08:13)
--- NOTE | 2017-03-24 09:53 | SOAPPROG ---
SOAP Progress Note Assessment/Plan: Assessment: Persistent elevated WBC, agree with CT. Plan: 03/16/17 09:35 03/17/17 11:20 03/18/17 09:08 03/19/17 10:51 03/20/17 09:45 03/21/17 08:17 03/22/17 11:40 03/23/17 10:55 03/24/17 09:52 Subjective: Patient with increased cramping today. [place] po, no N/V. Ambulating. Objective: Vital Signs Temp Pulse Resp BP Pulse Ox 37.8 C 102 H 19 141/87 H 95 03/24/17 07:48 03/24/17 07:48 03/24/17 07:48 03/24/17 07:48 03/24/17 07:48 Microbiology 03/18/17 14:37 Gram Stain - Final Other - Tissue 03/17/17 20:45 Blood Culture - Final Blood 03/17/17 20:45 Blood Culture - Final Blood Laboratory Results 03/24/17 06:25 03/24/17 06:25 03/23/17 03/24/17 03/25/17 05:59 05:59 05:59 Intake Total 6427 1870 Output Total 1670 1735 150 Balance 4757 135 -150 Alert, NAD Sl tachy but reg Abd distended ICD10 Worksheet Patient Problems: Problems Problem Status Onset Perforated diverticulum of large intestine Acute
--- NOTE | 2017-03-24 09:58 | PCMIDPN ---
Assessment/Plan: Assessment: Peritonitis and sepsis with after anastomotic leakage following elective sigmoid colectomy. Patient continues to look mildly toxic and tachycardic but improved over his appearance this weekend. The white blood cell count continues to be somewhat elevated. Patient continues on both ertapenem and fluconazole. Remain somewhat concerned about his overall clinical status. We will continue to watch him closely. CT imaging scheduled for later today. Plan: 1. Continue both IV ertapenem and fluconazole. 2. Follow clinical appearance. 3. Follow up on abdominal pelvic CT scan. 03/24/17 14:45 Subjective: Patient is resting in his bed in his hospital room. He has a visitor currently. He reports no significant changes. Somewhat of an appetite but not much. No fevers or chills subjectively. No rash. Moving bowel contents through ostomy today. Objective: Ertapenem # 3 Fluconazole # 7 Vital Signs Temp Pulse Resp BP Pulse Ox 37.8 C 102 H 19 141/87 H 95 03/24/17 07:48 03/24/17 07:48 03/24/17 07:48 03/24/17 07:48 03/24/17 07:48 Microbiology 03/18/17 14:37 Gram Stain - Final Other - Tissue 03/17/17 20:45 Blood Culture - Final Blood 03/17/17 20:45 Blood Culture - Final Blood Laboratory Results 03/24/17 06:25 03/24/17 06:25 03/23/17 03/24/17 03/25/17 05:59 05:59 05:59 Intake Total 6427 1870 Output Total 1670 1735 150 Balance 4757 135 -150 - Physical Exam General Appearance: WD/WN, alert, no apparent distress, non-toxic Respiratory: lungs clear, normal breath sounds, No respiratory distress Cardiac/Chest: regular rate, rhythm, tachycardia Abdomen: soft, other (Ostomy healthy appearing.), No non-tender, No distended Skin: normal color, warm/dry, No rash Neuro/Psych: alert, normal mood/affect, oriented x 3 ICD10 Worksheet Patient Problems: Problems Problem Status Onset Perforated diverticulum of large intestine Acute
[2017-03-24] MEDS ORDERED: IOPAMIDOL (ISOVUE-300) 100 ML BTL ONE (10:32)
--- NOTE | 2017-03-24 14:59 | ASMTCMCOM ---
CM Note CM Note Notes: Spoke with patient about discharge planning. He had questions about home care. His exact needs are TBD, but it is likely he will need home RN and possibly PT. A referral has been sent to [facility]. Per ID, it's too soon to tell if patient will need home IV antibiotics, but we will facilitate that, as well, if it becomes necessary. Patient is supposed to go to IR tomorrow for draining of his abdomen. Current CM Discharge plan: home with homecare Date Signed: 03/24/2017 02:58 PM Electronically Signed By:Heather Lizarraga RN
--- NOTE | 2017-03-24 17:00 | HOSPPROG ---
Hospitalist Progress Note Assessment/Plan: Assessment: 41 yo M p/w peritonitis 2/2 anastomotic leak s/p colectomy for diverticulitis, c/b intra-abdominal abscess Plan: # Abscess. L abd, w/ seroma vs. hematoma midline (fluctuant/tender) and rising WBC and fever o/n -obtained CT today, demonstrates two fluid collections -d/w Drs. Wilde and Varghese, drainage/cx indicated, will get IR drainage tomorrow AM since he received lovenox this AM -cont pain mgmt -cont monitor WBC -cont current IV Rx (ertapenem and fluconazole), likely not a resistant organism but rather requires source control # Diverticulitis s/p robotic sigmoid colectomy by Dr. Wilde, remains primary # Anastomotic leak s/p Carrasco procedure # Peritonitis with sepsis (evidenced by ICDS-2 criteria w/ autonomic dysregulation in setting of infxn, w/ leukocytosis/fever/tachycardia/hypotension ) - ESBL E.coli, Enterobacter on Cx results # Intra-abdominal acute hemorrhage s/p evacuation, surg site hematoma may be worsening # Acute blood loss anemia - Hgb 8.3 today, cont to monitor, no transfusion today # Acute post-op Ileus - resolving - tolerating PO # Acute atelectasis and pleural effusions - present on CXR, educated patient re : IS -recommend IV lasix once his acute infxn processes improve to expedite resolution High level of medical complexity 2/2 above, high risk or worsening morbidity, monitoring for evolving infxn closely. Hosp Medicine will continue to consult on daily care. Subjective: worsening pain in central abdomen and L side, edema in scrotum/legs Objective: Vital Signs Temp Pulse Resp BP Pulse Ox 37.8 C 97 16 136/80 H 96 03/24/17 16:00 03/24/17 16:00 03/24/17 16:00 03/24/17 16:00 03/24/17 16:00 Microbiology 03/18/17 14:37 Gram Stain - Final Other - Tissue Laboratory Results 03/24/17 06:25 03/24/17 06:25 03/23/17 03/24/17 03/25/17 05:59 05:59 05:59 Intake Total 2428 1870 1446 Output Total 1670 1735 1700 Balance 4757 135 -254 - Physical Exam Constitutional: no apparent distress, appears nourished, uncomfortable, No not in pain (mild) Cardiovascular: regular rate and rhythym, no murmur, rub, or gallop, edema ( trace bilat LE) Respiratory: reduced air movement (bilat bases), inspiratory crackles (bilat mid post segs), No expiratory wheeze, No bronchial breath sounds, No respiratory distress Gastrointestinal: normoactive bowel sounds, no palpable masses, tenderness (mid abd and L abd), guarding (voluntary in central abd), distension (mild), other ( drains in place, ostomy) Genitourinary: other (scrotal edema) Skin: other (mild eryuthema around surg site) Neurologic: AAOx3, sensation intact bilaterally, No weakness Psychiatric: interacting appropriately, not anxious, not encephalopathic, thought process linear ICD10 Worksheet Patient Problems: Problems Problem Status Onset Perforated diverticulum of large intestine Acute
[2017-03-24 18:31] LABS: INR 1.01 (0.83-1.16); PROTIME(PATIENT) 13.5 SEC (12.0-15.0)
[2017-03-25] MEDS: oxyCODONE IR 5 MG TAB PO PRN ×3 (00:16→17:17)
[2017-03-25] MEDS: KETOROLAC 15 MG/1 ML SDV IVP SCH ×3 (00:16→17:13)
[2017-03-25 06:15] LABS: PLATELET COUNT 486 10^3/uL (150-400)
[2017-03-25] MEDS: FLUCONAZOLE/NaCl 100 ML IV SCH (08:14)
[2017-03-25] MEDS: ERTAPENEM 1 GM VIAL IVP SCH (08:14)
--- NOTE | 2017-03-25 09:16 | HOSPPROG ---
Hospitalist Progress Note Assessment/Plan: Assessment: 41 yo M p/w peritonitis 2/2 anastomotic leak after elective colectomy for diverticulitis, c/b intra-abdominal abscess Plan: # Peritonitis with sepsis - ESBL E.coli, Enterobacter on Cx results -cont current IV Rx (ertapenem and fluconazole) # Abscess. CT revealed 2 fluid collections. -IR to drain this am. Pt is NPO -cont pain mgmt -cont monitor WBC # Diverticulitis s/p robotic sigmoid colectomy by Dr. Wilde, remains primary # Anastomotic leak s/p Carrasco procedure # Intra-abdominal acute hemorrhage s/p evacuation, surg site hematoma may be worsening # Acute blood loss anemia - Hgb 7.6 from 8.3, cont to monitor, no transfusion today -transfuse for hgb <7 or e/o bleeding # Acute post-op Ileus - resolving - tolerating PO # Acute atelectasis and pleural effusions - present on CXR, educated patient re : IS -recommend IV lasix once his acute infxn processes improve to expedite resolution Dispo - cont inpt Full code High level of medical complexity 2/2 above, high risk or worsening morbidity, monitoring for evolving infxn closely. Hosp Medicine will continue to consult on daily care. Subjective: Pt c/o pain in abdomen. Sweaty when up at bedside. Feels worse today. No fevers. No N/V/D. Ostomy working. Little output from LAKHWINDER drain. Objective: Vital Signs Temp Pulse Resp BP Pulse Ox 37.6 C 102 H 20 134/84 H 100 03/25/17 08:00 03/25/17 08:00 03/25/17 08:00 03/25/17 08:00 03/25/17 08:00 Microbiology 03/18/17 14:37 Gram Stain - Final Other - Tissue Laboratory Results 03/25/17 06:10 03/25/17 06:10 03/24/17 03/25/17 03/26/17 05:59 05:59 05:59 Intake Total 1870 1671 Output Total 1735 3480 425 Balance 135 -1809 -425 PT 13.5 SEC (12.0-15.0) 03/24/17 18:00 INR 1.01 (0.83-1.16) 03/24/17 18:00 - Physical Exam Constitutional: no apparent distress Eyes: PERRL Ears, Nose, Mouth, Throat: moist mucous membranes Cardiovascular: regular rate and rhythym Respiratory: no respiratory distress, clear to auscultation Gastrointestinal: other (soft, mild distention, mild TTP, no r/r/g, +hypoactive bowel sounds, ostomy functioning) Skin: warm Musculoskeletal: full muscle strength Neurologic: AAOx3 Psychiatric: interacting appropriately ICD10 Worksheet Patient Problems: Problems Problem Status Onset Perforated diverticulum of large intestine Acute
[2017-03-25] MEDS: GABAPENTIN 300 MG CAP PO SCH ×2 (11:07→21:06)
[2017-03-25] MEDS: SENNOSIDES/DOCUSATE SODIUM TAB PO SCH ×2 (11:08→21:06)
[2017-03-25] MEDS ORDERED: MIDAZOLAM 2 MG/2 ML VIAL ONE (12:07)
[2017-03-25] MEDS ORDERED: FLUMAZENIL 0.5 MG/5 ML MDV IVP ONE (12:07)
[2017-03-25] MEDS ORDERED: NALOXONE HCL 0.4 MG/ML INJ ONE (12:08)
[2017-03-25] MEDS ORDERED: fentaNYL 100 MCG/2 ML INJ ONE (12:08)
[2017-03-25] MEDS ORDERED: fentaNYL 100 MCG/2 ML INJ IVP PRN (12:52)
[2017-03-25] MEDS ORDERED: FLUMAZENIL 0.5 MG/5 ML MDV IVP PRN (12:52)
[2017-03-25] MEDS ORDERED: PROTAMINE SULFATE 50 MG/5 ML VIAL IVP PRN (12:52)
[2017-03-25] MEDS ORDERED: NALOXONE HCL 0.4 MG/ML INJ IVP PRN (12:52)
[2017-03-25] MEDS ORDERED: ALTEPLASE 2 MG VIAL IVP PRN (12:52)
[2017-03-25] MEDS ORDERED: MEPERIDINE 25 MG/ML SYR IVP PRN (12:52)
[2017-03-25] MEDS ORDERED: HEPARIN 10,000 UNIT/10 ML MDV (1,000 UNIT/ML) IVP PRN (12:52)
[2017-03-25] MEDS ORDERED: GLUCAGON HCL 1 MG VIAL IVP PRN (12:52)
[2017-03-25] MEDS ORDERED: MIDAZOLAM 2 MG/2 ML VIAL IVP PRN (12:52)
[2017-03-25] MEDS ORDERED: NS 1,000 ML IV SCH (13:00)
--- NOTE | 2017-03-25 13:36 | SOAPPROG ---
SOAP Progress Note Assessment/Plan: Assessment: IR drainage of left abd fluid collection. Cont abx. D/w patient at length, questions answered. Plan: 03/16/17 09:35 03/17/17 11:20 03/18/17 09:08 03/19/17 10:51 03/20/17 09:45 03/21/17 08:17 03/22/17 11:40 03/23/17 10:55 03/24/17 09:52 03/25/17 13:35 Objective: Vital Signs Temp Pulse Resp BP Pulse Ox 37.6 C 130 H 22 H 152/97 H 96 03/25/17 08:00 03/25/17 13:30 03/25/17 13:30 03/25/17 13:30 03/25/17 13:30 Microbiology 03/18/17 14:37 Gram Stain - Final Other - Tissue Laboratory Results 03/25/17 06:10 03/25/17 06:10 03/24/17 03/25/17 03/26/17 05:59 05:59 05:59 Intake Total 1870 1671 Output Total 1735 3480 725 Balance 135 -1809 -725 PT 13.5 SEC (12.0-15.0) 03/24/17 18:00 INR 1.01 (0.83-1.16) 03/24/17 18:00 Alert, NAD Sl tachy but reg Abd softer, mild TTP LLQ Inc C/D/I, no erythema LAKHWINDER serous Ostomy functioning ICD10 Worksheet Patient Problems: Problems Problem Status Onset Perforated diverticulum of large intestine Acute
[2017-03-25] MEDS: HYDROmorphone HCL/NS/PF 0.4 MG/2 ML SYR IVP PRN (14:52)
--- NOTE | 2017-03-25 15:24 | PCMIDPN ---
Assessment/Plan: # Sepsis due polymicrobial peritonitis/abdominal abscess with after anastomotic leakage following elective robotic sigmoid colectomy. Recent CT shows a 3.9 x 5.9 x 12 cm fluid collection. Underwent IR aspiration today and drainage, loculations were noted. Patient continues to have low-grade fever and leukocytosis. Right-sided LAKHWINDER with only 5 cc out the last 24 hours --Continue to monitor WBC and fever following IR drainage today --continue ertapenem and fluconazole. --contact isolation for ESBL Microbiology 03/18 tissue cultures: ESBL E coli (resistant to fluoroquinolones, susceptible to Bactrim and ertapenem) and enterobacter 03/17 blood cultures (2) negative 03/25 IR aspiration: Pending Medications Ertapenem 1 g IV daily, # 4 Fluconazole 200 mg IV daily Subjective: I feel like I cannot tolerate a 4th surgery. Primary location of abdominal pain is associated with right-sided LAKHWINDER drain Ostomy started producing stool yesterday Objective: Vital Signs Temp Pulse Resp BP Pulse Ox 37.9 C 105 H 20 142/86 H 94 03/25/17 14:54 03/25/17 14:54 03/25/17 14:54 03/25/17 14:54 03/25/17 14:54 Microbiology 03/18/17 14:37 Gram Stain - Final Other - Tissue Anaerobic Culture - Final Escherichia Coli Esbl Enterobacter Cloacae Laboratory Results 03/25/17 06:10 03/25/17 06:10 03/24/17 03/25/17 03/26/17 05:59 05:59 05:59 Intake Total 1870 1671 Output Total 1735 3480 1525 Balance 135 -1809 -1525 - Physical Exam General Appearance: alert, no apparent distress Respiratory: lungs clear, No accessory muscle use Neck: supple Cardiac/Chest: tachycardia Abdomen: soft, other (Bowel sounds present, slightly decreased, ostomy left side with formed stool, midline incision with satish in place no erythema, right LAKHWINDER drain with serosanguineous fluid, new LAKHWINDER drain left side also with serosanguineous fluid) Skin: pallor, No rash Neuro/Psych: alert, normal mood/affect, oriented x 3 ICD10 Worksheet Patient Problems: Problems Problem Status Onset Perforated diverticulum of large intestine Acute
[2017-03-25] MEDS: HYDROmorphONE/DILAUDID 1 MG/ML INJ IVP PRN (21:13)
[2017-03-26] MEDS: KETOROLAC 15 MG/1 ML SDV IVP SCH (02:12)
[2017-03-26 05:47] LABS: PLATELET COUNT 612 10^3/uL (150-400)
--- NOTE | 2017-03-26 08:38 | HOSPPROG ---
Hospitalist Progress Note Assessment/Plan: Assessment: 41 yo M a/w peritonitis 2/2 anastomotic leak after elective colectomy for diverticulitis, c/b intra-abdominal abscess Plan: # Peritonitis with sepsis - ESBL E.coli, Enterobacter on Cx results -cont ertapenem and fluconazole -ID following # Intra-abdominal abscess. CT revealed 2 fluid collections. S/P drainage by IR yesterday, only small decrease in size of abscess. Leukocytosis persists. Afebrile. -cont pain mgmt -cont monitor WBC -may warrant repeat CT if wbc's cont to rise or he becomes febrile # Diverticulitis s/p robotic sigmoid colectomy by Dr. Wilde, remains primary # Anastomotic leak s/p Carrasco procedure # Intra-abdominal acute hemorrhage s/p evacuation # Acute blood loss anemia - Hgb stable 8.1. # Acute post-op Ileus - resolving - tolerating PO now # Hypoxemia 2/2 acute atelectasis and pleural effusions - cont IS, wean O2 as able Dispo - cont inpt Full code High risk Hosp Medicine will continue to consult on daily care. Subjective: Pt feels ok. No pain at rest, but hasn't ambulated today. No fevers. He isn't hopeful that the abscess was adequately drained. No N/V. Colostomy working well. Objective: Vital Signs Temp Pulse Resp BP Pulse Ox 37.3 C 104 H 16 138/88 H 95 03/26/17 02:14 03/26/17 02:14 03/26/17 02:14 03/26/17 02:14 03/26/17 02:14 Microbiology 03/25/17 13:05 Gram Stain - Final Other - Aspirate 03/18/17 14:37 Gram Stain - Final Other - Tissue Anaerobic Culture - Final Escherichia Coli Esbl Enterobacter Cloacae Laboratory Results 03/26/17 05:20 03/26/17 05:20 03/25/17 03/26/17 03/27/17 05:59 05:59 05:59 Intake Total 1671 250 Output Total 3480 3435 Balance -1809 -3185 PT 13.5 SEC (12.0-15.0) 03/24/17 18:00 INR 1.01 (0.83-1.16) 03/24/17 18:00 - Physical Exam Constitutional: no apparent distress Eyes: PERRL Ears, Nose, Mouth, Throat: moist mucous membranes Cardiovascular: regular rate and rhythym Respiratory: no respiratory distress, clear to auscultation Gastrointestinal: normoactive bowel sounds, soft, non-tender abdomen, other ( midline incision c/d/i, no peritoneal signs, LAKHWINDER drains with output) Skin: warm Musculoskeletal: full muscle strength Neurologic: AAOx3 Psychiatric: interacting appropriately ICD10 Worksheet Patient Problems: Problems Problem Status Onset Perforated diverticulum of large intestine Acute
[2017-03-26] MEDS: SENNOSIDES/DOCUSATE SODIUM TAB PO SCH ×2 (08:51→21:07)
[2017-03-26] MEDS: ERTAPENEM 1 GM VIAL IVP SCH (08:52)
[2017-03-26] MEDS: GABAPENTIN 300 MG CAP PO SCH ×2 (08:52→21:07)
[2017-03-26] MEDS: FLUCONAZOLE/NaCl 100 ML IV SCH (09:12)
--- NOTE | 2017-03-26 09:42 | SOAPPROG ---
SOAP Progress Note Assessment/Plan: Assessment: persistant leukocytosis/cultures pending from yesterday's drain placement If persistant leukocytosis or fever on antibiotics I would repeat CT to confirm drain placement Plan: Increase activity/diet as tolerated (high protein recommended) Abx per ID repeat CT if wbc continues to rise and/or febrile on antibiotics. 03/26/17 09:41 Subjective: Mr Montoya reports feeling better. He is s/p IR drain placement with culture pending yesterday. He is tolerating a regular diet and has stool passing from his colostomy. He is requiring narcotics to get up and ambulate. His surgical cultures grew out an ESBL e. coli and enterobacter. He is in isolation. He is on Ertapeneam and Fluconazole per ID. I will be assuming his surgical care from now through early April. I have reviewed his chart, recent imaging and lab results as well as consult notes from the Hospitalist service and ID, which are appreciated. Objective: Vital Signs Temp Pulse Resp BP Pulse Ox 37.2 C 94 16 132/83 H 96 03/26/17 08:00 03/26/17 08:00 03/26/17 08:00 03/26/17 08:00 03/26/17 08:00 Microbiology 03/25/17 13:05 Gram Stain - Final Other - Aspirate 03/18/17 14:37 Gram Stain - Final Other - Tissue Anaerobic Culture - Final Escherichia Coli Esbl Enterobacter Cloacae Laboratory Results 03/26/17 05:20 03/26/17 05:20 03/25/17 03/26/17 03/27/17 05:59 05:59 05:59 Intake Total 1671 250 Output Total 3480 3435 400 Balance -1809 -3185 -400 PT 13.5 SEC (12.0-15.0) 03/24/17 18:00 INR 1.01 (0.83-1.16) 03/24/17 18:00 - Pending Discharge Pending Discharge Within 24 Hours: No Pending Discharge Within 48 Hours: No Physical Exam - Physical Exam General Appearance: no apparent distress Abdomen: soft, other (midline incision/RLQ silicone drain with minimal output/ LUQ pigtail drain with minimal output/stoma viable) Neuro/Psych: normal mood/affect, oriented x 3 ICD10 Worksheet Patient Problems: Problems Problem Status Onset Perforated diverticulum of large intestine Acute
[2017-03-26] MEDS: oxyCODONE IR 5 MG TAB PO PRN ×2 (10:28→21:07)
--- NOTE | 2017-03-26 10:45 | PCMIDPN ---
Assessment/Plan: # Sepsis due polymicrobial peritonitis/abdominal abscess with after anastomotic leakage following elective robotic sigmoid colectomy. Recent CT shows a 3.9 x 5.9 x 12 cm fluid collection s/p IR drainage yesterday. Feeling better, no fever x 24hours, WBC remains elevated and unfortunately aspirate from yesterday already growing GNR --Consider CT scan if persistently elevated wbc --continue ertapenem and fluconazole. --contact isolation for ESBL --prob dc fluconazole if recent cultures are negative for williams Microbiology 03/18 tissue cultures: ESBL E coli (resistant to fluoroquinolones, susceptible to Bactrim and ertapenem) and enterobacter 03/17 blood cultures (2) negative 03/25 IR aspiration: GNR Medications Ertapenem 1 g IV daily, # 5 Fluconazole 200 mg IV daily Care coordinated with Dr. Ramesh and Dr. Guzman Subjective: feeling better today less abdominal pain planning to walk Objective: Vital Signs Temp Pulse Resp BP Pulse Ox 37.2 C 94 16 132/83 H 96 03/26/17 08:00 03/26/17 08:00 03/26/17 08:00 03/26/17 08:00 03/26/17 08:00 Microbiology 03/25/17 13:05 Gram Stain - Final Other - Aspirate 03/18/17 14:37 Gram Stain - Final Other - Tissue Anaerobic Culture - Final Escherichia Coli Esbl Enterobacter Cloacae Laboratory Results 03/26/17 05:20 03/26/17 05:20 03/25/17 03/26/17 03/27/17 05:59 05:59 05:59 Intake Total 1671 250 Output Total 3480 3435 600 Balance -1809 -3185 -600 AF x 24 hours General Appearance: alert, no apparent distress Respiratory: lungs clear, No accessory muscle use Neck: supple Cardiac/Chest: tachycardia Abdomen: soft, Bowel sounds present, ostomy left side with formed stool, midline incision with satish in place no erythema, right LAKHWINDER drain with serosanguineous fluid, LAKHWINDER drain left side also with serosanguineous fluid Skin: pallor, No rash Neuro/Psych: alert, normal mood/affect, oriented x 3 - Time Spent With Patient Time Spent with Patient: greater than 35 minutes Time Spent with Patient: Greater than 35 minutes spent on this patients care, greater than 50% of time spent counseling, educating, and coordinating care regarding the above mentioned plan. ICD10 Worksheet Patient Problems: Problems Problem Status Onset Perforated diverticulum of large intestine Acute
[2017-03-26] MEDS ORDERED: ENOXAPARIN 40 MG/0.4 ML SYR SC SCH (12:30)
[2017-03-26] MEDS: HYDROmorphONE/DILAUDID 1 MG/ML INJ IVP PRN (15:31)
[2017-03-26] MEDS: LORazepam 2 MG/ML INJ IVP PRN (22:55)
[2017-03-27 05:44] LABS: PLATELET COUNT 885 10^3/uL (150-400)
[2017-03-27] MEDS ORDERED: D5W LR 1,000 ML IV SCH (08:00)
[2017-03-27] MEDS ORDERED: IOPAMIDOL (ISOVUE-300) 100 ML BTL ONE (08:26)
--- NOTE | 2017-03-27 08:31 | HOSPPROG ---
Hospitalist Progress Note Assessment/Plan: Assessment: 41 yo M a/w peritonitis 2/2 anastomotic leak after elective colectomy for diverticulitis, c/b intra-abdominal abscess. Today is my 1st encounter with the patient. Chart reviewed. # sepsis due to poly microbial peritonitis,abdominal abscess -cont ertapenem # 6 and fluconazole (this to be dc today per ID) -ID following -ongoing leukocytosis with low grade fever # Intra-abdominal abscess. CT revealed 2 fluid collections. -S/P drainage in IR -repeat CT today per Dr Guzman to further evaluate if this is a hematoma # Diverticulitis -s/p robotic sigmoid colectomy by Dr. Wilde, remains primary #Hyperkalemia -will dc LR -recheck K level in a.m. # Anastomotic leak s/p Carrasco procedure # Intra-abdominal acute hemorrhage s/p evacuation # Acute blood loss anemia - Hgb stable 8.8 # Acute post-op Ileus - resolved # Hypoxemia 2/2 acute atelectasis and pleural effusions - cont IS, wean O2 as able #DVT prophylaxis: LMWH was ordered but dc today for poss surgery #plan. reviewed his care w Dr Guzman who is now primary on the patient. Dr Guzman is fine managing the patient along with ID without the hospitalist. Reviewed this with the patient and he asked if we would continue to follow. Subjective: Errol is feeling good overall today. Objective: Vital Signs Temp Pulse Resp BP Pulse Ox 36.9 C 97 16 119/78 95 03/27/17 07:28 03/27/17 07:28 03/27/17 07:28 03/27/17 07:28 03/27/17 07:28 Microbiology 03/25/17 13:05 Gram Stain - Final Other - Aspirate Laboratory Results 03/27/17 05:19 03/27/17 05:19 03/26/17 03/27/17 03/28/17 05:59 05:59 05:59 Intake Total 250 1200 Output Total 3435 2515 310 Balance -3185 -1315 -310 PT 13.5 SEC (12.0-15.0) 03/24/17 18:00 INR 1.01 (0.83-1.16) 03/24/17 18:00 - Physical Exam Constitutional: no apparent distress, appears nourished, No not in pain (left side) Eyes: PERRL Ears, Nose, Mouth, Throat: hearing normal Cardiovascular: regular rate and rhythym Respiratory: no respiratory distress Gastrointestinal: normoactive bowel sounds Skin: warm, No normal color (pale) Neurologic: AAOx3 Psychiatric: interacting appropriately ICD10 Worksheet Patient Problems: Problems Problem Status Onset Perforated diverticulum of large intestine Acute
[2017-03-27] MEDS: ERTAPENEM 1 GM VIAL IVP SCH (08:38)
[2017-03-27] MEDS: GABAPENTIN 300 MG CAP PO SCH ×2 (08:39→21:41)
--- NOTE | 2017-03-27 08:41 | PDCONSULT ---
Shank Archer Note: Errol is resting comfortably, his highest temp was 37.7 overnight. His wbc remains elevated and his L abdominal drain aspirate is growing e. coli and enterobacter sp. His abd is soft/incision looks o.k he has purulent drainage from his L abd drain and serous drainage from his pelvic drain. I recommended a repeat CT abd/pelvis.this morning to reassess. I reviewed his previous CT with him on PACS and discussed possible surgery for more complete evacuation of his L abd abscess. He asked if this could get better without surgery and I told him I could not really predict, but that it may not. S MD Megan, FACS
[2017-03-27] MEDS: SENNOSIDES/DOCUSATE SODIUM TAB PO SCH ×2 (08:42→21:41)
[2017-03-27] MEDS: FLUCONAZOLE/NaCl 100 ML IV SCH (09:32)
--- NOTE | 2017-03-27 10:51 | WOCRNPDOC ---
[facility] Advanced Assessment Note - Colostomy Assessment, Advanced Left Lower Abdomen Colostomy Stoma Colostomy Appliance Intact: Yes Colostomy Appliance Currently in Use: Two Piece Flat, 2 1/4, Cut to Fit Stoma Color: Red Stoma Turgor: Moist Stoma Shape: Oval Stoma Height: Protruding Slightly (flush w/ skin from 4-11 o'clock, beginning to retract) Mucocutaneus Junction: Intact Colostomy Effluent: Fecal, Thick Colostomy Details: Raheem's Pouch Peristomal Skin: Intact Colostomy Comment/Treatment Details: Appliance change at the bedside this morning, w/ minimal patient assist. Stoma beginning to retract, flush w/ skin level from 4-11 o'clock. Selected a convex 2 1/4 inch wafer to help stoma protrude into pouch more effectively. Peristomal skin is intact w/ no breakdown observed. Stoma is oval-shaped, mesuring 25mm from top to bottom, and 41mm from side to side. Went over how to measure stoma, when to empty pouch, how to troubleshoot peristomal skin breakdown, and when to change barrier. Patient asked very specific questions related to care. He is preoccupied w/ latest upcoming surgery, which makes engagement in the learning process difficult at this time. dot net architect will follow up with him again on Thursday 03/29 to change appliance and evaluate teaching.
--- NOTE | 2017-03-27 10:58 | PCMIDPN ---
Assessment/Plan: # Sepsis due polymicrobial peritonitis/abdominal abscess with after anastomotic leakage following elective robotic sigmoid colectomy. Patient feel better BUT repeat CT today shows minimal change in fluid collection s/p IR drain placement on L +increase fluid collection under incision, low grade fever, also drainage from L LAKHWINDER drain now purulent, IR cx positive, WBC still elevated, no change --dc fluconazole. no williams isolated --continue ertapenem --continue to monitor clinical improvement, assess need additional drainage daily. Surgery to open up midline incision today Microbiology 03/18 tissue cultures: ESBL E coli (resistant to fluoroquinolones, susceptible to Bactrim and ertapenem) and Enterobacter 03/17 blood cultures (2) negative 03/25 IR aspiration: E coli, enterobacter Medications Ertapenem 1 g IV daily, #6 Fluconazole 200 mg IV daily Subjective: patient feeling better, more energy, walked a bunch yesterday. Appetite improving using less pain meds Objective: Vital Signs Temp Pulse Resp BP Pulse Ox 36.9 C 97 16 119/78 95 03/27/17 07:28 03/27/17 07:28 03/27/17 07:28 03/27/17 07:28 03/27/17 07:28 Microbiology 03/25/17 13:05 Gram Stain - Final Other - Aspirate Laboratory Results 03/27/17 05:19 03/27/17 05:19 03/26/17 03/27/17 03/28/17 05:59 05:59 05:59 Intake Total 250 1200 Output Total 3435 2515 310 Balance -3185 -1315 -310 Tmax 37.7 General Appearance: alert, no apparent distress, appears comfortable Respiratory: lungs clear, No accessory muscle use Neck: supple Cardiac/Chest: RRR Abdomen: soft, Bowel sounds present, ostomy left side with formed stool, midline incision with satish in place no erythema, right LAKHWINDER drain with serosanguineous fluid, LAKHWINDER drain left side now with purulent drainage Skin: pallor, No rash Neuro/Psych: alert, normal mood/affect, oriented x 3 ICD10 Worksheet Patient Problems: Problems Problem Status Onset Perforated diverticulum of large intestine Acute
[2017-03-27] MEDS: HYDROmorphONE/DILAUDID 1 MG/ML INJ IVP PRN ×3 (12:04→18:00)
[2017-03-27] MEDS ORDERED: CALCIUM CARBONATE 500 MG CHEWABLE TAB PO PRN (21:09)
[2017-03-27] MEDS: FAMOTIDINE 20 MG/NACL 50 ML IV SCH (21:55)
[2017-03-27] MEDS: LORazepam 2 MG/ML INJ IVP PRN (22:06)
[2017-03-28 05:32] LABS: PLATELET COUNT 955 10^3/uL (150-400)
[2017-03-28] MEDS: ERTAPENEM 1 GM VIAL IVP SCH (08:12)
[2017-03-28] MEDS: FAMOTIDINE 20 MG/NACL 50 ML IV SCH ×2 (08:13→20:41)
[2017-03-28] MEDS: GABAPENTIN 300 MG CAP PO SCH (08:13)
--- NOTE | 2017-03-28 09:09 | HOSPPROG ---
Hospitalist Progress Note Assessment/Plan: #Polymicrobial peritonitis/multiple abd abscesses -white count up. Midline abscess larger (CT personally reviewed). s/p bedside drainage 03/27. To OR today for further drainage -IV Ertapenem for E Coli, Enterobacter #Leukocytosis: plan as above. Afebrile, blood cultures NGTD #Abdominal pain: minimal. He no longer wants Gabapentin. Will taper off in next few days. Go to once-daily dosing #Deconditioning: cont out of bed to chair, walking unit #Acute blood loss anemia: 1 unit 03/18. H/H stable #Diet: per surgery #DVT ppx: Lovenox Disp: we will continue to follow, please call if questions Subjective: walked unit yesterday. No fevers. Min abd pain after eating Objective: Vital Signs Temp Pulse Resp BP Pulse Ox 36.9 C 91 16 130/80 H 95 03/28/17 07:51 03/28/17 07:51 03/28/17 07:51 03/28/17 07:51 03/28/17 07:51 Microbiology 03/25/17 13:05 Gram Stain - Final Other - Aspirate 03/27/17 12:05 Gram Stain - Final Abdomen - Swab Laboratory Results 03/28/17 04:57 03/28/17 04:57 03/27/17 03/28/17 03/29/17 05:59 05:59 05:59 Intake Total 1200 650 Output Total 2515 3375 Balance -1315 -2725 PT 13.5 SEC (12.0-15.0) 03/24/17 18:00 INR 1.01 (0.83-1.16) 03/24/17 18:00 - Physical Exam Constitutional: no apparent distress Eyes: PERRL Ears, Nose, Mouth, Throat: moist mucous membranes Cardiovascular: regular rate and rhythym, no murmur, rub, or gallop Respiratory: no respiratory distress, no rales or rhonchi Gastrointestinal: other (left LAKHWINDER drain with purulence. Midline surgical incision staple. Wick in place, purelent discharge. Stoma with pink tissue, brown stool) Musculoskeletal: full muscle strength Neurologic: AAOx3 ICD10 Worksheet Patient Problems: Problems Problem Status Onset Perforated diverticulum of large intestine Acute
--- NOTE | 2017-03-28 09:28 | PDCONSULT ---
Manager Asset Note: Mr. Montoya feels about the same. His wbc continues to climb and he has no fever. His LUQ drain is growing the same ESBL e. coli as the pelvic drain. His abdominal wound is draining poorly. I recommended operative drainage with wound vac placement and discussed his case with Dr. Lombardi. I would approach the LUQ abscess via a flank incision to avoid re- entry of the peritoneal cavity. We discussed the procedure, alternatives and risks. Informed consent was obtained
--- NOTE | 2017-03-28 09:38 | ASMTCMCOM ---
CM Note CM Note Notes: Patient to OR with Dr Guzman today for further drain of his abdominal wound, as well as wound vac placement. His WBC count continues to rise, and he has no fever. Current discharge plan is home with home RN/PT through [facility]. Case Management will continue to assess for ongoing discharge needs. Date Signed: 03/28/2017 09:37 AM Electronically Signed By:Heather Lizarraga RN
--- NOTE | 2017-03-28 10:18 | PDANEPAE ---
ANE History of Present Illness S/P colon resection with wound infection ANE Past Medical History - Cardiovascular History Hx Hypertension: No Hx Arrhythmias: No Hx Chest Pain: No Hx Coronary Artery / Peripheral Vascular Disease: No Hx CHF / Valvular Disease: No Hx Palpitations: No - Pulmonary History Hx COPD: No Hx Asthma/Reactive Airway Disease: No Hx Recent Upper Respiratory Infection: No Hx Oxygen in Use at Home: No Hx Sleep Apnea: No Sleep Apnea Screening Result - Last Documented: Negative Pulmonary History Comment: On O2 now. Pain requiring narcotics. - Neurologic History Hx Cerebrovascular Accident: No Hx Seizures: No Hx Dementia: No - Endocrine History Hx Diabetes: No Hypothyroid: No Hyperthyroid: No Obesity: no - Renal History Hx Renal Disorders: No - Liver History Hx Hepatic Disorders: No - Neurological & Psychiatric Hx Hx Neurological and Psychiatric Disorders: No - Cancer History Hx Cancer: No - Congenital Disorder History Hx Congenital Disorders: No - GI History GERD: no Hx Gastrointestinal Disorders: Yes Gastrointestinal History Comment: s/p sigmoidectomy for sigmoid diverticulitis- perforation w/ 2nd bout. Free air in abdomen due to leak at anastomosis site. - Other Health History Other Health History: none - Chronic Pain History Chronic Pain: No - Surgical History Prior Surgeries: ganglion cyst-hand ANE Review of Systems Review of Systems: - Exercise capacity METS (RN): 5 METS ANE Patient History - Allergies Allergies/Adverse Reactions: No Known Allergies Allergy (Verified 02/14/17 11:01) - Home Medications Home Medications: Propranolol HCl [Inderal 20mg (*)] 20 mg PO DAILY PRN 05/16/15 [Last Taken 3 Weeks Ago ~02/22/17] Acetaminophen [Tylenol 325mg (*)] 325 mg PO DAILY PRN 02/07/17 [Last Taken 1 Week Ago ~03/08/17] Herbals/Supplements -Info Only 1 ea PO DAILY 02/07/17 [Last Taken 1 Week Ago ~] - NPO status NPO Since - Liquids (Date): 03/18/17 NPO Since - Liquids (Time): 11:00 NPO Since - Solids (Date): 03/14/17 NPO Since - Solids (Time): 12:00 - Smoking Hx Smoking Status: Former smoker - Alcohol Use Alcohol Use: Occasionally - Family Anes Hx Family Hx Anesthesia Complications: none ANE Labs/Vital Signs - Labs Result Diagrams: 03/28/17 04:57 03/28/17 04:57 - Vital Signs Blood Pressure: 130/80 Heart Rate: 91 Respiratory Rate: 16 O2 Sat (%): 95 Height: 182.88 cm Weight: 69.9 kg ANE Physical Exam - Airway Neck exam: FROM Mallampati Score: Class 2 Mouth exam: normal dental/mouth exam - Pulmonary Pulmonary: no respiratory distress - Cardiovascular Cardiovascular: regular rate and rhythym - ASA Status ASA Status: II ANE Anesthesia Plan Anesthesia Plan: GA w LMA
[2017-03-28] MEDS ORDERED: fentaNYL 100 MCG/2 ML INJ ONE ×4 (10:22→11:53)
[2017-03-28] MEDS ORDERED: PROPOFOL 200 MG/20 ML VIAL ONE (10:23)
[2017-03-28] MEDS ORDERED: LIDOCAINE 2% 5 ML SDV ONE (10:23)
[2017-03-28] MEDS ORDERED: METOCLOPRAMIDE 10 MG/2 ML VIAL ONE (10:24)
[2017-03-28] MEDS ORDERED: GLYCOPYRROLATE 0.2 MG/1 ML VIAL ONE (10:24)
[2017-03-28] MEDS ORDERED: MIDAZOLAM 2 MG/2 ML VIAL ONE (10:27)
[2017-03-28] MEDS ORDERED: NALOXONE HCL 0.4 MG/ML INJ IVP PRN ×2 (10:52→12:07)
[2017-03-28] MEDS ORDERED: ONDANSETRON 4 MG/2 ML VIAL IVP PRN (10:52)
[2017-03-28] MEDS ORDERED: HYDROmorphONE/DILAUDID 1 MG/ML INJ IVP PRN (10:52)
[2017-03-28] MEDS: SENNOSIDES/DOCUSATE SODIUM TAB PO SCH ×2 (11:25→20:42)
[2017-03-28] MEDS ORDERED: ONDANSETRON 4 MG/2 ML VIAL ONE (11:35)
--- NOTE | 2017-03-28 11:50 | POSTOPPROG ---
Post Op Note Date of Operation: 03/28/17 Surgeon: Patrick Guzman (, FACS) Anesthesiologist: Erwin Reyes MD Anesthesia: GET(General Endotracheal) Pre-op Diagnosis: intra-abdominal abscess/wound infection Post-op Diagnosis: LUQ intra-abdominal abscess/wound infection with fascial dehisence Procedure: drainage intra-abdominal abscess/wound debridement/wound vac Inf/Abcess present in the surg proc area at time of surgery?: Yes Depth: Organ Space Drains: Ferguson, Wound Vac
[2017-03-28] MEDS: fentaNYL 100 MCG/2 ML INJ IVP PRN ×2 (11:54→12:06)
[2017-03-28] MEDS ORDERED: HYDROmorphONE/DILAUDID 6 MG/30 ML PCA IV PRN (12:07)
[2017-03-28] MEDS ORDERED: LR 1,000 ML IV ONE (12:08)
[2017-03-28] MEDS ORDERED: HYDROmorphONE/DILAUDID 1 MG/ML INJ ONE (12:15)
--- NOTE | 2017-03-28 13:10 | PCMIDPN ---
Assessment/Plan: # Sepsis due polymicrobial peritonitis/abdominal abscess with after anastomotic leakage following elective robotic sigmoid colectomy. Return to OR today after persistent leukocytosis, purulent drainage to undergo drainage of large L sided loculated intraabdominal abscess and further debridement of wound infection. Post op significantly more pain - as expected --will need PICC Line, eventually --continue ertapenem. Fluconazole recently dc for no cultures showing williams Microbiology 03/18 tissue cultures: ESBL E coli (resistant to fluoroquinolones, susceptible to Bactrim and ertapenem) and Enterobacter 03/17 blood cultures (2) negative 03/25 IR aspiration: E coli, enterobacter 03/27 Incision cx : GNR LF Medications Ertapenem 1 g IV daily, #7 Subjective: significant pain post op Objective: Vital Signs Temp Pulse Resp BP Pulse Ox 36.9 C 91 16 125/85 H 98 03/28/17 12:18 03/28/17 10:51 03/28/17 12:25 03/28/17 12:25 03/28/17 12:25 Microbiology 03/25/17 13:05 Gram Stain - Final Other - Aspirate 03/27/17 12:05 Gram Stain - Final Abdomen - Swab Laboratory Results 03/28/17 04:57 03/28/17 04:57 03/27/17 03/28/17 03/29/17 05:59 05:59 05:59 Intake Total 1200 650 Output Total 2515 2775 Balance -1315 -2725 Tm 37.2 Gen: young man, mildly distressed secondary to pain HEENT: Dry MM, no thrush CV: RRR Chest : shallow inspirations due to pain Abd: wound vac midline, 2 red drains LLQ covered by ostomy bag, serosang fluid, soft, decreased bowel sounds, very mild distension no ENA no valero Psy: pleasant, cooperative, slightly flat affect "I feel depressed" - Time Spent With Patient Time Spent with Patient: greater than 35 minutes (reviewed course of illness, expected duration of healing, and antibiotic therapy) Time Spent with Patient: Greater than 35 minutes spent on this patients care, greater than 50% of time spent counseling, educating, and coordinating care regarding the above mentioned plan. ICD10 Worksheet Patient Problems: Problems Problem Status Onset Perforated diverticulum of large intestine Acute
[2017-03-28] MEDS: HYDROmorphONE/DILAUDID 1 MG/ML INJ IVP PRN (13:19)
[2017-03-28] MEDS: D5W NS 1,000 ML IV SCH (14:21)
[2017-03-28] MEDS: LORazepam 2 MG/ML INJ IVP PRN (20:41)
[2017-03-28] MEDS: oxyCODONE IR 5 MG TAB PO PRN (20:41)
--- NOTE | 2017-03-29 03:07 | GOP ---
[f rep st] OPERATIVE REPORT DATE OF OPERATION: 03/28/2017 SURGEON: Patrick Guzman MD, FACS ANESTHESIA: General endotracheal. ANESTHESIOLOGIST: Alek Reyes MD PREOPERATIVE DIAGNOSIS: 1. Abdominal wall/wound abscess. 2. Left upper quadrant intraabdominal abscess. POSTOPERATIVE DIAGNOSIS: 1. Abdominal wall/wound abscess. 2. Left upper quadrant intraabdominal abscess. PROCEDURE PERFORMED: 1. Drainage of abdominal wall/wound abscess with debridement of skin, subcutaneous tissues and fascia and application of wound VAC. 2. Drainage of left upper quadrant intraabdominal abscess. FINDINGS: Wound abscess extending from the skin through the subcutaneous tissues with fascial necrosis and dehiscence but without evisceration. Left upper quadrant abscess with previous attempt at percutaneous drainage revealed a loculated abscess that was drained through a flank incision. ESTIMATED BLOOD LOSS: 50 mL. DESCRIPTION OF PROCEDURE: After informed consent was obtained, the patient was brought to the operating room and placed under general anesthesia. The abdomen was prepped and draped in the usual fashion after removing his colostomy appliance and his right lower quadrant drain. Patient had a percutaneous drain in place in the left upper quadrant with minimal output. This was prepped into the field, as was the patient's colostomy. Before proceeding, a time-out and identification of the patient was performed. The old satish were removed. The wound was opened along the entire length and copious amounts of foul- smelling pus was evacuated. The previously placed sutures had remained intact, however, the fascia was necrotic along the length of the incision and was debrided with all sutures removed. The granulation tissue at the bottom of this abscess cavity was likely immediately overlying the patient's bowel and further exploration of the wound was confined to the subfascial level. After all necrotic material was debrided, the wound was temporarily packed with normal saline and a laparotomy sponge. The left upper quadrant abscess was then drained as follows. The old drain was used as a starting point and the approximately 3 cm incision was made extending SF extending inferiorly and medially from the drain site. Dissection was carried through the skin, subcutaneous tissues, external oblique fascia, internal oblique muscle, transverse abdominis muscle and peritoneum. The abscess cavity was entered and the old drain was removed. Loculations within the abscess were broken down with digital dissection and a tonsil sucker. The wound was irrigated and aspirated. A 0.5 inch [place] drain was used to fashion a sump drain with 2 red rubber Morales catheters placed in the center and secured the drain with 2- 0 nylon suture. This was placed into the depths of the wound and was secured to the skin with 2-0 nylon suture. A colostomy appliance was placed over the lateral drain site as a wound drainage collection bag. The wound VAC was then applied to the central wound placing a sheet of Adaptic over the granulation bed , followed by white foam, followed by black foam. Subsequently, the right lower quadrant drain site was connected to the central wound with a foam bridge after protecting the skin with OPSITE. The entire wound as well as right lower quadrant drain site were covered with OPSITE. The. The central portion of the OPSITE was cut to a diameter of 10 mm to allow placement of the drainage tubing. This was subsequently connected to 125 mmHg suction with a good seal obtained. A colostomy appliance was finally placed over the colostomy and secured. The patient was then extubated and brought to the recovery room in satisfactory condition. Needle, sponge, and instrument count were correct. COMPLICATIONS: None. /[id number]/MODL MTDD
[2017-03-29] MEDS: D5W NS 1,000 ML IV SCH (03:55)
[2017-03-29 05:10] LABS: PLATELET COUNT 745 10^3/uL (150-400)
--- NOTE | 2017-03-29 07:45 | PDCONSULT ---
Trick Rodeo Rider Note: Mr. 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
--- NOTE | 2017-03-29 08:18 | HOSPPROG ---
Hospitalist Progress Note Assessment/Plan: #Polymicrobial peritonitis/multiple abd abscesses associated with sigmoid colectomy anastomosis leak (E coli, Enterobacter, Bacteroides) -Midline abscess larger (CT personally reviewed). s/p bedside drainage 03/27 -POD #1 LUQ abscess drainage, wound vac -IV Ertapenem. Will discuss duration with ID #Leukocytosis: 17-->13 today. Afebrile, blood cultures NGTD #Abdominal pain: required WAREHOUSE CONSULTANT last night. Now on orals with IV for PT. He no longer wants Gabapentin. Will taper off in next few days. Go to once-daily dosing #Deconditioning: cont out of bed to chair, walking unit. Will speak with CM about SNF given numerous cares: wound vac, IV abx, and PT needed #Acute blood loss anemia: 1 unit 03/18. H/H stable #Diet: per surgery #DVT ppx: Lovenox Disp: we will continue to follow, please call if questions Subjective: pain 2/10 with oral dilaudid this mornining Objective: Vital Signs Temp Pulse Resp BP Pulse Ox 36.9 C 92 16 111/65 95 03/29/17 06:00 03/29/17 06:00 03/29/17 06:00 03/29/17 06:00 03/29/17 06:00 Microbiology 03/25/17 13:05 Gram Stain - Final Other - Aspirate 03/27/17 12:05 Gram Stain - Final Abdomen - Swab Laboratory Results 03/29/17 04:33 03/29/17 04:33 03/28/17 03/29/17 03/30/17 05:59 05:59 05:59 Intake Total 706 009 3406 Output Total 3375 1000 Balance -2725 -400 1254 PT 13.5 SEC (12.0-15.0) 03/24/17 18:00 INR 1.01 (0.83-1.16) 03/24/17 18:00 - Physical Exam Constitutional: no apparent distress Eyes: PERRL Ears, Nose, Mouth, Throat: moist mucous membranes Cardiovascular: regular rate and rhythym Respiratory: no respiratory distress Gastrointestinal: other (abdominal wound vac in place. Ostomies with pink tissue. Hyperactive BS. TTP along wound vac) Skin: warm Musculoskeletal: generalized weakness Neurologic: AAOx3, CN II-XII Intact Psychiatric: interacting appropriately ICD10 Worksheet Patient Problems: Problems Problem Status Onset Perforated diverticulum of large intestine Acute
[2017-03-29] MEDS ORDERED: GABAPENTIN 300 MG CAP PO SCH (09:00)
[2017-03-29] MEDS: HYDROmorphONE/DILAUDID 4 MG TAB PO PRN ×3 (09:11→16:46)
[2017-03-29] MEDS: ERTAPENEM 1 GM VIAL IVP SCH (09:11)
[2017-03-29] MEDS: SENNOSIDES/DOCUSATE SODIUM TAB PO SCH ×2 (09:13→21:50)
[2017-03-29] MEDS: ENOXAPARIN 40 MG/0.4 ML SYR SC SCH (09:19)
[2017-03-29] MEDS: FAMOTIDINE 20 MG/NACL 50 ML IV SCH ×2 (09:19→21:54)
[2017-03-29] MEDS ORDERED: ALTEPLASE 2 MG VIAL IVP PRN (10:25)
--- NOTE | 2017-03-29 10:29 | PCMIDPN ---
Assessment/Plan: Assessment/Plan: * Sepsis due to peritonitis associated with anastomotic leak after sigmoid colectomy status post repeat operative drainage of abscess 03/28/2017: Operative findings reviewed noting abscess in left upper quadrant with culture showing growth of lactose fermenting gram-negative juan. Continue ertapenem with anticipated prolonged course of therapy, at least 4 weeks post drainage. White blood cell count and platelets decreasing today which is encouraging finding. Risks and benefits of PICC line including potential for PICC associated line infection or DVT discussed with patient today. 03/29/17 10:26 03/29/17 10:30 Subjective: Patient with abdominal pain post drainage of abscess. Objective: Vital Signs Temp Pulse Resp BP Pulse Ox 36.7 C 97 16 119/78 95 03/29/17 08:00 03/29/17 08:00 03/29/17 08:00 03/29/17 08:00 03/29/17 08:00 Microbiology 03/25/17 13:05 Gram Stain - Final Other - Aspirate 03/27/17 12:05 Gram Stain - Final Abdomen - Swab Laboratory Results 03/29/17 04:33 03/29/17 04:33 03/28/17 03/29/17 03/30/17 05:59 05:59 05:59 Intake Total 809 802 0060 Output Total 3375 1000 200 Balance -2725 -400 1054 Ertapenem # 8 Operative culture 03/28/2017 with growth of lactose fermenting gram-negative juan Percutaneous abscess drainage culture from 03/25/2017 with growth of ESBL producing E coli, Enterobacter, and Bacteroides - Physical Exam General Appearance: alert, no apparent distress EENT: No scleral icterus, No thrush Respiratory: lungs clear (Anterolaterally) Cardiac/Chest: regular rate, rhythm Abdomen: tender (Diffusely), other (Wound VAC in place) ICD10 Worksheet Patient Problems: Problems Problem Status Onset Perforated diverticulum of large intestine Acute
[2017-03-29] MEDS: HYDROmorphONE/DILAUDID 1 MG/ML INJ IVP PRN ×2 (11:00→12:48)
--- NOTE | 2017-03-29 11:51 | ASMTCMCOM ---
CM Note CM Note Notes: Patient's needs now trending toward inpatient care vs services at home. He is scheduled for a wound vac change in OR tomorrow, still on IV antibiotics, and very deconditioned. I spoke with him and he agrees to a rehab stab before returning home. His insurance company offices are closed today, so we are unable to see which facilities are covered. PT's current recommendation is inpatient rehab; referral sent. Current CM Discharge plan: TBD Date Signed: 03/29/2017 11:51 AM Electronically Signed By:Heather Lizarraga RN
[2017-03-29] MEDS: oxyCODONE IR 5 MG TAB PO PRN (22:28)
[2017-03-30] MEDS: oxyCODONE IR 5 MG TAB PO PRN ×3 (05:47→19:17)
[2017-03-30] MEDS: ERTAPENEM 1 GM VIAL IVP SCH (08:32)
[2017-03-30] MEDS: FAMOTIDINE 20 MG/NACL 50 ML IV SCH ×2 (08:32→20:29)
[2017-03-30] MEDS ORDERED: LR 1,000 ML IV ONE (09:57)
[2017-03-30] MEDS ORDERED: BUPIVACAINE 0.5% 30 ML SDV ONE (09:58)
[2017-03-30] MEDS ORDERED: MIDAZOLAM 2 MG/2 ML VIAL ONE (10:21)
[2017-03-30] MEDS ORDERED: MIDAZOLAM 2 MG/2 ML VIAL IVP ONE (10:23)
--- NOTE | 2017-03-30 10:24 | PDANEPAE ---
ANE History of Present Illness 41 year old male w/ multiple abdominal surgeries in recent weeks presents for wound vac change. ANE Past Medical History - Cardiovascular History Hx Hypertension: No Hx Arrhythmias: No Hx Chest Pain: No Hx Coronary Artery / Peripheral Vascular Disease: No Hx CHF / Valvular Disease: No Hx Palpitations: No - Pulmonary History Hx COPD: No Hx Asthma/Reactive Airway Disease: No Hx Recent Upper Respiratory Infection: No Hx Oxygen in Use at Home: No Hx Sleep Apnea: No Sleep Apnea Screening Result - Last Documented: Negative Pulmonary History Comment: On O2 now. Pain requiring narcotics. - Neurologic History Hx Cerebrovascular Accident: No Hx Seizures: No Hx Dementia: No - Endocrine History Hx Diabetes: No Hypothyroid: No Hyperthyroid: No Obesity: no - Renal History Hx Renal Disorders: No - Liver History Hx Hepatic Disorders: No - Neurological & Psychiatric Hx Hx Neurological and Psychiatric Disorders: No - Cancer History Hx Cancer: No - Congenital Disorder History Hx Congenital Disorders: No - GI History GERD: no Hx Gastrointestinal Disorders: Yes Gastrointestinal History Comment: s/p sigmoidectomy for sigmoid diverticulitis- perforation w/ 2nd bout. Free air in abdomen due to leak at anastomosis site. - Other Health History Other Health History: none - Chronic Pain History Chronic Pain: No - Surgical History Prior Surgeries: ganglion cyst-hand ANE Review of Systems Review of systems is: negative Review of Systems: - Exercise capacity Exercise capacity: >=4 METS METS (RN): 5 METS ANE Patient History - Allergies Allergies/Adverse Reactions: No Known Allergies Allergy (Verified 02/14/17 11:01) - Home Medications Home medications: home medication list seen and reviewed Home Medications: Propranolol HCl [Inderal 20mg (*)] 20 mg PO DAILY PRN 05/16/15 [Last Taken 3 Weeks Ago ~02/22/17] Acetaminophen [Tylenol 325mg (*)] 325 mg PO DAILY PRN 02/07/17 [Last Taken 1 Week Ago ~03/08/17] Herbals/Supplements -Info Only 1 ea PO DAILY 02/07/17 [Last Taken 1 Week Ago ~] - NPO status NPO Status: no food or drink >8 hours NPO Since - Liquids (Date): 03/30/17 NPO Since - Liquids (Time): 00:05 NPO Since - Solids (Date): 03/30/17 NPO Since - Solids (Time): 00:05 - Anes Hx Anes Hx: no prior problems - Smoking Hx Smoking Status: Former smoker - Alcohol Use Alcohol Use: Occasionally - Family Anes Hx Family Hx Anesthesia Complications: none ANE Labs/Vital Signs - Labs Result Diagrams: 03/30/17 05:29 03/29/17 04:33 - Vital Signs Vital Signs: reviewed preoperatively; see RN documention for details Blood Pressure: 127/80 Heart Rate: 99 Respiratory Rate: 16 O2 Sat (%): 96 Height: 182.88 cm Weight: 71.9 kg ANE Physical Exam - Airway Neck exam: FROM Mallampati Score: Class 1 Mouth exam: normal dental/mouth exam - Pulmonary Pulmonary: no respiratory distress - Cardiovascular Cardiovascular: no murmur, rub, or gallop, tachycardia - ASA Status ASA Status: II ANE Anesthesia Plan Anesthesia Plan: GA w LMA Total IV Anesthesia: No
[2017-03-30] MEDS ORDERED: fentaNYL 100 MCG/2 ML INJ ONE ×2 (10:28→11:38)
[2017-03-30] MEDS ORDERED: PROPOFOL 200 MG/20 ML VIAL ONE (10:28)
[2017-03-30] MEDS ORDERED: HYDROmorphONE/DILAUDID 1 MG/ML INJ IVP PRN (10:50)
[2017-03-30] MEDS ORDERED: PHENYLEPHRINE HCL 100 MCG/ML SYR IVP PRN (10:50)
[2017-03-30] MEDS ORDERED: NALOXONE HCL 0.4 MG/ML INJ IVP PRN (10:50)
[2017-03-30] MEDS ORDERED: ONDANSETRON 4 MG/2 ML VIAL IVP PRN (10:50)
[2017-03-30] MEDS ORDERED: fentaNYL 100 MCG/2 ML INJ IVP PRN (10:50)
[2017-03-30] MEDS ORDERED: LR 500 ML IV PRN (10:50)
[2017-03-30] MEDS ORDERED: LIDOCAINE 2% 5 ML SDV ONE (10:52)
[2017-03-30] MEDS ORDERED: ROCURONIUM 50 MG/5 ML VIAL ONE (10:52)
[2017-03-30] MEDS ORDERED: ONDANSETRON 4 MG/2 ML VIAL ONE (10:52)
[2017-03-30] MEDS ORDERED: DEXAMETHASONE 4 MG/ML VIAL ONE (10:52)
[2017-03-30] MEDS ORDERED: HYDROmorphONE/DILAUDID 1 MG/ML INJ ONE (11:38)
--- NOTE | 2017-03-30 11:39 | POSTOPPROG ---
Post Op Note Date of Operation: 03/30/17 Surgeon: Patrick Guzman (, FACS) Anesthesiologist: Robles Em MD Anesthesia: LMA Pre-op Diagnosis: open abdominal wound/wound vac Post-op Diagnosis: same Procedure: wound vac change/debridement fascia Findings: early granulation tissue with small amount of residual necrosis Inf/Abcess present in the surg proc area at time of surgery?: Yes Depth: Organ Space (previous drainage intra-abdominal abscess) EBL: Minimal Drains: Wound Vac
[2017-03-30] MEDS: SENNOSIDES/DOCUSATE SODIUM TAB PO SCH ×2 (12:15→20:29)
[2017-03-30] MEDS: ENOXAPARIN 40 MG/0.4 ML SYR SC SCH (12:15)
--- NOTE | 2017-03-30 13:03 | GOP ---
[f rep st] OPERATIVE REPORT DATE OF OPERATION: 03/30/2017 SURGEON: Patrick Guzman MD, FACS ANESTHESIA: General by laryngeal mask. ANESTHESIOLOGIST: Robles Em MD. PREOPERATIVE DIAGNOSIS: 1. Open abdominal wound status post drainage of abdominal wall abscess. 2. Left upper quadrant intraabdominal abscess. 3. Status post Raheem procedure for anastomotic leak following robotic sigmoid colectomy. POSTOPERATIVE DIAGNOSIS: 1. Open abdominal wound status post drainage of abdominal wall abscess. 2. Left upper quadrant intraabdominal abscess. 3. Status post Raheem procedure for anastomotic leak following robotic sigmoid colectomy. PROCEDURE PERFORMED: FINDINGS: Small amount of residual devascularized and/or necrotic abdominal wall fascia, early granulation tissue of the deep wound bed and subcutaneous tissues. Partial retraction of the left abdominal wall colostomy. ESTIMATED BLOOD LOSS: 10 cc. DESCRIPTION OF PROCEDURE: After informed consent was obtained, the patient was brought to the operating room and placed under general anesthesia. The abdomen was prepped and draped in the usual fashion after the old Wound VAC and colostomy bag were removed. The left upper quadrant wound drainage collection bag was left in place. It was isolated from the field with an adhesive drape. Before proceeding, a time-out identification of the patient was performed. The wound was inspected and noted to have good granulation tissue in the base, which likely represented either omentum and/or bowel. The midline fascia had been extensively debrided 48-hours prior at the time of the initial wound drainage and most of the necrotic tissue had been resected. Residual fascial tissue that appeared necrotic and/or devascularized was trimmed away from the edges using sharp dissection and sparing use of cautery for hemostasis. The wound was then irrigated with normal saline, and a Wound VAC was subsequently applied by Angi with a deep layer of occlusive nonadherent dressing followed by a layer of white sponge followed by a layer of black sponge. Colostomy bag was replaced. The patient was returned and extubated to the recovery room in satisfactory condition. Needle, sponge, and instrument count was correct. PROCEDURE PERFORMED: Operative debridement of anterior abdominal wall wound resection of necrotic fascia. Wound VAC change. INTRAOPERATIVE CONSULTATION: Angi Leiva RN, Wound Care Clinical Nurse Specialist. COMPLICATIONS: None. /[id number]/MODL MTDD
--- NOTE | 2017-03-30 14:34 | POSTANESTH ---
Post Anesthetic Evaluation Cardiovascular Status: Normal, Stable, Similar to Pre-Op Cond Respiratory Status: Normal, Stable, Similar to Pre-op Cond. Level of Consciousness/Mental Status: Can Participate in Eval, Alert and Oriented Pain Control: Adequate, Prn Tx Ordered Nausea/Vomiting Control: Adequate, Prn Tx Ordered Complications Possibly Related to Anesthesia: None Noted (Patient requiring supplemental O2 prior to surgery. Still requiring after surgery.)
--- NOTE | 2017-03-30 15:01 | HOSPPROG ---
Hospitalist Progress Note Assessment/Plan: #Polymicrobial peritonitis/multiple abd abscesses associated with sigmoid colectomy anastomosis leak (E coli, Enterobacter, Bacteroides). s/p Carrasco's pouch -Midline abscess larger (CT personally reviewed). s/p bedside drainage 03/27 -OR again today for drainage of LUQ and abdominal wall abscess, wound vac -IV Ertapenem. Will discuss duration with ID #Leukocytosis: improved. Afebrile, blood cultures NGTD #SOB/chest pain: repeat CXR negative for PTX and PICC properly placed #Abdominal pain: controlled on PO dilaudid. He no longer wants Gabapentin. Tapered-off #Deconditioning: cont out of bed to chair, walking unit. -CM assisting with SNF given numerous cares: wound vac, IV abx, and PT needed #Acute blood loss anemia: 1 unit 03/18. H/H stable #Diet: per surgery #DVT ppx: Lovenox Disp: we will continue to follow, please call if questions Subjective: SOB and tachycardic when getting into wheelchair Objective: Vital Signs Temp Pulse Resp BP Pulse Ox 37.1 C 111 H 20 111/83 H 91 L 03/30/17 12:35 03/30/17 14:21 03/30/17 14:21 03/30/17 14:21 03/30/17 14:21 Microbiology 03/27/17 12:05 Gram Stain - Final Abdomen - Swab Wound Culture - Final Escherichia Coli Esbl 03/25/17 13:05 Gram Stain - Final Other - Aspirate Laboratory Results 03/30/17 05:29 03/29/17 04:33 03/29/17 03/30/17 03/31/17 05:59 05:59 05:59 Intake Total 600 1404 750 Output Total 1000 2650 650 Balance -400 -1246 100 PT 13.5 SEC (12.0-15.0) 03/24/17 18:00 INR 1.01 (0.83-1.16) 03/24/17 18:00 - Physical Exam Constitutional: no apparent distress Ears, Nose, Mouth, Throat: moist mucous membranes Cardiovascular: regular rate and rhythym Respiratory: no respiratory distress Gastrointestinal: other (wound vac in place. TTP. Ostomy with pink tissue. ) Genitourinary: No valero in urethra Musculoskeletal: full muscle strength Neurologic: AAOx3, No CN II-XII Intact Psychiatric: interacting appropriately ICD10 Worksheet Patient Problems: Problems Problem Status Onset Perforated diverticulum of large intestine Acute
--- NOTE | 2017-03-30 16:18 | PCMIDPN ---
Assessment/Plan: Assessment/Plan: * Sepsis due to peritonitis associated with anastomotic leak after sigmoid colectomy status post repeat operative drainage of abscess 03/28/2017 an wound VAC change in OR earlier today: Small amount of residual necrotic tissue noted intraoperatively. Cultures from 03/27/2017 show growth of ESBL producing E coli. Isolate remains susceptible to carbapenems. Continue ertapenem with anticipated 4 week course of therapy post drainage on 03/27/2017. Continue to follow clinical course and labs with time. 03/30/17 16:15 Subjective: Patient status post wound VAC change in OR today with small amount of residual necrotic tissue noted and debrided. Patient with residual abdominal pain present. Objective: Vital Signs Temp Pulse Resp BP Pulse Ox 37.6 C 107 H 16 128/82 H 95 03/30/17 15:51 03/30/17 15:51 03/30/17 15:51 03/30/17 15:51 03/30/17 15:51 Microbiology 03/27/17 12:05 Gram Stain - Final Abdomen - Swab Wound Culture - Final Escherichia Coli Esbl 03/25/17 13:05 Gram Stain - Final Other - Aspirate Laboratory Results 03/30/17 05:29 03/29/17 04:33 03/29/17 03/30/17 03/31/17 05:59 05:59 05:59 Intake Total 600 1404 750 Output Total 1000 2650 650 Balance -400 -1246 100 Ertapenem # 9 Operative cultures 03/27/2017 ESBL producing E coli - Physical Exam General Appearance: alert, no apparent distress EENT: No scleral icterus, No thrush Respiratory: lungs clear, No respiratory distress Cardiac/Chest: tachycardia Abdomen: tender (Diffusely; wound VAC in place centrally without surrounding erythema, stoma pink), No distended Skin: No rash ICD10 Worksheet Patient Problems: Problems Problem Status Onset Perforated diverticulum of large intestine Acute
[2017-03-30] MEDS: LORazepam 2 MG/ML INJ IVP PRN (21:42)
[2017-03-31 05:56] LABS: PLATELET COUNT 655 10^3/uL (150-400)
[2017-03-31] MEDS: oxyCODONE IR 5 MG TAB PO PRN ×4 (06:02→17:53)
--- NOTE | 2017-03-31 07:51 | PDCONSULT ---
Office Clerk Assistant Note: Mr. Montoya is resting comfortably/he reports less pain Tmax 37.7 abd: wound vac intact/purulent drainage LUQ passive drainsite colostomy functional wbc 13 Imp: persistant low grade fever and leukocytosis s/p drainage wound infection/ LUQ intra-abd abscess Rec: continue IV Abx per ID wound vac change at bedside tomorrow AM if not tolerated will change in the OR with anesthesia tomorrow night. Key Guzman MD, FACS
[2017-03-31] MEDS: FAMOTIDINE 20 MG/NACL 50 ML IV SCH ×2 (08:14→21:53)
[2017-03-31] MEDS: ENOXAPARIN 40 MG/0.4 ML SYR SC SCH (08:14)
[2017-03-31] MEDS: ERTAPENEM 1 GM VIAL IVP SCH (08:14)
[2017-03-31] MEDS: SENNOSIDES/DOCUSATE SODIUM TAB PO SCH ×2 (08:15→20:40)
[2017-03-31] MEDS: HYDROmorphONE/DILAUDID 1 MG/ML INJ IVP PRN ×3 (11:23→19:36)
--- NOTE | 2017-03-31 15:44 | HOSPPROG ---
Hospitalist Progress Note Assessment/Plan: 41-year-old male with a prolonged hospital stay secondary to a ruptured colonic anastomosis with intraperitoneal abscess. He is undergoing wound VAC changes and care of a wound dehiscence. The wound VAC was changed on 03/30 and will be changed again on 04/01 possibly in the OR. Patient is new to me today -Polymicrobial peritonitis/multiple abd abscesses associated with sigmoid colectomy anastomosis leak (E coli, Enterobacter, Bacteroides). s/p Carrasco's pouch -Midline abscess larger (CT personally reviewed). s/p bedside drainage 03/27, OR drainage on 03/30 -IV Ertapenem. ID agrees though it is an ESBL E coli organism. #Leukocytosis: improved. Afebrile, blood cultures NGTD #SOB/chest pain: PICC properly placed, no infiltrate or effusion, basal atelectasis is noted. Also noted is an ecchymosis on the right lower posterior chest in the CVA region. This may represent retroperitoneal bleeding though it appears to be old. He has no splinting and is not in respiratory distress. Plan: Encouraged use of the incentive spirometer and cough and deep breathing. #Abdominal pain: controlled on PO dilaudid. He no longer wants Gabapentin. Tapered-off #Deconditioning: cont out of bed to chair, walking unit. -CM assisting with SNF given numerous cares: wound vac, IV abx, and PT needed #Acute blood loss anemia: 1 unit 03/18. H/H stable #Diet: per surgery #DVT ppx: Lovenox Subjective: Reports he had a pretty good day as he was up and walking about in the room. Reports right posterior chest pain nonpleuritic without fever chills or productive cough. He feels he is slowly improving. Objective: Vital Signs Temp Pulse Resp BP Pulse Ox 37.0 C 110 H 18 119/80 95 03/31/17 15:24 03/31/17 15:24 03/31/17 15:24 03/31/17 15:24 03/31/17 15:24 Microbiology 03/25/17 13:05 Gram Stain - Final Other - Aspirate 03/27/17 12:05 Gram Stain - Final Abdomen - Swab Wound Culture - Final Escherichia Coli Esbl Laboratory Results 03/31/17 05:53 03/29/17 04:33 03/30/17 03/31/17 04/01/17 05:59 05:59 05:59 Intake Total 1404 1500 Output Total 2650 1775 Balance -1246 -275 PT 13.5 SEC (12.0-15.0) 03/24/17 18:00 INR 1.01 (0.83-1.16) 03/24/17 18:00 - Time Spent With Patient Time Spent with Patient: greater than 35 minutes Time Spent with Patient: Greater than 35 minutes spent on this patients care, greater than 50% of time spent counseling, educating, and coordinating care regarding the above mentioned plan. - Pending Discharge Pending Discharge Within 24 Hours: No Pending Discharge Within 48 Hours: No - Physical Exam Constitutional: no apparent distress, chronically ill appearing Eyes: PERRL, anicteric sclera Ears, Nose, Mouth, Throat: moist mucous membranes Cardiovascular: regular rate and rhythym, no murmur, rub, or gallop Respiratory: no respiratory distress, no rales or rhonchi, clear to auscultation , reduced air movement, other ( No inspiratory splinting) Gastrointestinal: other ( midline changes of a wound dehiscence with a wound VAC in place. Active bowel sounds and tenderness overall near the areas of wound drainage. No rebound) Genitourinary: no bladder fullness Skin: warm Musculoskeletal: generalized weakness Neurologic: AAOx3, CN II-XII Intact Psychiatric: interacting appropriately ICD10 Worksheet Patient Problems: Problems Problem Status Onset Perforated diverticulum of large intestine Acute
--- NOTE | 2017-03-31 16:31 | PCMIDPN ---
Assessment/Plan: Assessment: Peritonitis and sepsis with after anastomotic leakage following elective sigmoid colectomy. Patient looks much improved from last week since returning to the emergency room for further debridement and drainage. Plan continue ertapenem monotherapy for coverage. Plan: 1. Continue IV ertapenem. 2. Follow clinical appearance. Subjective: Patient is sitting up in his chair in his hospital room. He has been walking around the [place] earlier today. He feels improved although generally weaker than he normally is. Appetite continues to be good. No fevers or chills. Objective: Ertapenem #10 Vital Signs Temp Pulse Resp BP Pulse Ox 37.0 C 110 H 18 119/80 95 03/31/17 15:24 03/31/17 15:24 03/31/17 15:24 03/31/17 15:24 03/31/17 15:24 Microbiology 03/25/17 13:05 Gram Stain - Final Other - Aspirate 03/27/17 12:05 Gram Stain - Final Abdomen - Swab Wound Culture - Final Escherichia Coli Esbl Laboratory Results 03/31/17 05:53 03/29/17 04:33 03/30/17 03/31/17 04/01/17 05:59 05:59 05:59 Intake Total 1404 1500 Output Total 2650 5675 Balance -7381 -267 - Physical Exam General Appearance: WD/WN, alert, no apparent distress, thin, non-toxic Respiratory: lungs clear, normal breath sounds, No respiratory distress Cardiac/Chest: regular rate, rhythm, No tachycardia Skin: normal color, warm/dry, No rash Neuro/Psych: alert, normal mood/affect, oriented x 3 ICD10 Worksheet Patient Problems: Problems Problem Status Onset Perforated diverticulum of large intestine Acute
--- NOTE | 2017-03-31 17:51 | ASMTCMCOM ---
CM Note CM Note Notes: Spoke w/pt re; dc SNF. Pt's friends toured [facility] and [facility], pt leaning towards [facility]. CM faxed updated notes to both, dc date still unclear. DC Plan: SNF Date Signed: 03/31/2017 05:51 PM Electronically Signed By:Mandi Fuller RN
--- NOTE | 2017-03-31 18:30 | CPEKG ---
Heart Rate: 107 RR Interval: 561 P-R Interval: 141 QRSD Interval: 90 QT Interval: 360 QTC Interval: 481 P [place]: 62 QRS [place]: 33 T Wave [place]: 33 EKG Severity - BORDERLINE ECG - EKG Impression: SINUS TACHYCARDIA EKG Impression: PROBABLE LEFT ATRIAL ABNORMALITY EKG Impression: BORDERLINE PROLONGED QT INTERVAL Electronically Signed By: Kunal Sanchez 01-Apr-2017 07:49:00
[2017-03-31] MEDS ORDERED: IOPAMIDOL (ISOVUE 370) 100 ML BTL IV ONE (18:34)
[2017-03-31] MEDS ORDERED: HEPARIN 10,000 UNIT/10 ML MDV (1,000 UNIT/ML) IVP ONE (19:14)
[2017-03-31] MEDS: ACETAMINOPHEN 325 MG TAB PO PRN (19:36)
[2017-03-31] MEDS: diphenhydrAMINE 25 MG CAP PO PRN (19:37)
--- NOTE | 2017-03-31 19:59 | SOAPPROG ---
Downtime Inpatient MD Late Entry SOAP Note: CTA shows bilateral pulmonary emboli. Dr. Tello has initiated Heparin therapy appropriately. Hospitalist service consultation appreciated. Key Guzman MD, FACS
[2017-03-31 20:17] LABS: INR 1.1 (0.83-1.16); PROTIME(PATIENT) 14.4 SEC (12.0-15.0)
[2017-03-31] MEDS: HEPARIN/DEXTROSE 500 ML IV SCH (20:38)
[2017-04-01] MEDS: HYDROmorphONE/DILAUDID 1 MG/ML INJ IVP PRN ×12 (00:42→23:15)
[2017-04-01] MEDS: oxyCODONE IR 5 MG TAB PO PRN ×4 (00:47→19:39)
[2017-04-01 05:32] LABS: PLATELET COUNT 594 10^3/uL (150-400)
--- NOTE | 2017-04-01 07:15 | PDCONSULT ---
Disability Insurance Hearing Officer Note: Mr. Montoya is resting more comfortably, but still having pleuritic pain His vitals are stable and tachycardia is resolving exam was not repeated at this time wbc <12K Imp: pulmonary emboli open abdominal wound, colostomy, LUQ abscess Rec: bedside wound vac change/continue current Abx per ID continue Heparin may need IVC filter if further surgery necessary Key Guzman MD, FACS
[2017-04-01] MEDS: FAMOTIDINE 20 MG/NACL 50 ML IV SCH ×2 (07:47→22:38)
[2017-04-01] MEDS: SENNOSIDES/DOCUSATE SODIUM TAB PO SCH ×2 (07:48→22:38)
[2017-04-01] MEDS: ERTAPENEM 1 GM VIAL IVP SCH (09:10)
--- NOTE | 2017-04-01 10:16 | ASMTCMCOM ---
CM Note CM Note Notes: Spoke w/pt re; SNF. [facility] declined stating no bed available. D/w pt sending referrals to other SNFs that are a little farther out that can handle complexity of care. Pt is open to this and gives CM permission to send referrals to [facility] and [facility]. DC Plan: SNF Date Signed: 04/01/2017 10:15 AM Electronically Signed By:Mandi Fuller RN
[2017-04-01] MEDS: HEPARIN 10,000 UNIT/10 ML MDV (1,000 UNIT/ML) IVP PRN (10:23)
[2017-04-01] MEDS: LORazepam 2 MG/ML INJ IVP PRN ×3 (11:14→22:38)
--- NOTE | 2017-04-01 12:36 | WOCRNPDOC ---
[facility] Advanced Assessment Note - Skin Integrity Problem, Advanced Assess Abdomen Surgical Wound/Incision Dressing Type: Black Vac Foam (1), Contact Layer (x2), White Vac Foam (1) Dressing Description: Clean/Dry, Intact Exudate Amount: Scant Exudate Characteristic(s): Serosanguinous Integumentary Issue Intervention: Dressing Changed Wound Bed Color: Red Wound Bed Constitution: Granulation Tissue, Smooth Tissue Skin Integrity Problem Comment: Patient quite nervous about bedside vac change so procedure was done slowly. Also pain medication coordination needed to be made. Isha wound hair was clipped with clippers. Then ostomy pouch was removed and skin was cleaned and clipped. Mastisol applied along left margin of wound and an ostomy appliance was held over the stoma to catch any effluent that may have come out. Removed 1 piece of black foam on the top, x2 of white foam in the middle and a base of x2 layers of versatel. Wound was irrigated with ns. Wound bed was red and healthy with abundant granulation throughout. No necrosis present. Some areas of bowl/omentum remain visible however. A sterile field was created and then x2 pieces of verastel applied to wound bed after application of lynda Ag+. Then white foam was applied in one piece and then black ag+ foam as the top layer. Vac restarted at -75 mm Hg continuous suction without leaks. Reshma Rn and Jennifer RN in room for care. Report given to Dr. Guzman. Next vac change Tuesday at bedside. - Colostomy Assessment, Advanced Left Lower Abdomen Colostomy Stoma Colostomy Appliance Intact: Yes Colostomy Appliance Currently in Use: One Piece Flat, 2 1/4 Stoma Color: Red Stoma Turgor: Moist Stoma Shape: Round Stoma Height: Recessed (slightly) Mucocutaneus Junction: Seperating Mucocutaneus Junction Comment: from 6-8 oclock. Colostomy Effluent: Fecal, Pasty Colostomy Details: Raheem's Pouch Peristomal Skin: Intact Stomal Complications: Retraction Colostomy Comment/Treatment Details: Removed pouch and replaced after vac change. Isha stomal skin intact. No teaching at this time. Pt with new PE's and a first time bedside vac change today.
[2017-04-01] MEDS: HEPARIN/DEXTROSE 500 ML IV SCH (15:56)
--- NOTE | 2017-04-01 17:49 | HOSPPROG ---
Hospitalist Progress Note Assessment/Plan: 41-year-old male with a prolonged hospital stay secondary to a ruptured colonic anastomosis with intraperitoneal abscess. He is undergoing wound VAC changes and care of a wound dehiscence. Wound VAC was changed today in the room. Yesterday evening was noted to be tachypneic short of breath and right- sided chest pain. CT scan of the chest showed small pulmonary emboli knee was placed on a heparin drip. Today his heparin is subtherapeutic despite following protocol and I have ordered a 1 time bolus of 5000 U of heparin and will go back on protocol for his continuous infusion. Patient reports he continues to have right-sided pain especially with deep inspiration. -acute pulmonary embolus now currently on heparin and will require Coumadin anticoagulation. Respiratory status is stable. -Polymicrobial peritonitis/multiple abd abscesses associated with sigmoid colectomy anastomosis leak (E coli, Enterobacter, Bacteroides). s/p Carrasco's pouch -Midline abscess larger (CT personally reviewed). s/p bedside drainage 03/27, OR drainage on 03/30 -IV Ertapenem. ID agrees though it is an ESBL E coli organism. #Leukocytosis: improved. Afebrile, blood cultures NGTD #Abdominal pain: controlled on PO dilaudid. He no longer wants Gabapentin. Tapered-off #Deconditioning: cont out of bed to chair, walking unit. -CM assisting with SNF given numerous cares: wound vac, IV abx, and PT needed #Acute blood loss anemia: 1 unit 03/18. H/H stable #Diet: per surgery #DVT ppx: Lovenox Subjective: Continues report right-sided chest pain with deep inspiration he has no cough and no hemoptysis. Wound VAC was changed in the bed and tolerated that well Objective: Vital Signs Temp Pulse Resp BP Pulse Ox 37.4 C 110 H 20 130/81 H 96 04/01/17 16:00 04/01/17 16:00 04/01/17 16:00 04/01/17 16:00 04/01/17 16:00 Microbiology 03/25/17 13:05 Gram Stain - Final Other - Aspirate Anaerobic Culture - Final Escherichia Coli Esbl Enterobacter Cloacae Complex Bacteroides Thetaiotaomicron Laboratory Results 04/01/17 05:10 04/01/17 05:10 03/31/17 04/01/17 04/02/17 05:59 05:59 05:59 Intake Total 1500 900 Output Total 1775 900 Balance -275 0 PT 14.4 SEC (12.0-15.0) 03/31/17 19:50 INR 1.10 (0.83-1.16) 03/31/17 19:50 - Time Spent With Patient Time Spent with Patient: greater than 35 minutes Time Spent with Patient: Greater than 35 minutes spent on this patients care, greater than 50% of time spent counseling, educating, and coordinating care regarding the above mentioned plan. - Pending Discharge Pending Discharge Within 24 Hours: No Pending Discharge Within 48 Hours: No - Physical Exam Constitutional: chronically ill appearing, other (Experiences pleuritic chest pain with deep inspiration and moving to the right) Eyes: PERRL Ears, Nose, Mouth, Throat: moist mucous membranes, hearing normal Cardiovascular: regular rate and rhythym, no murmur, rub, or gallop, other (No tachycardia is noted) Respiratory: reduced air movement, other (Right-sided chest pain with some rhonchi noted in the bases bilaterally although the patient will not take a deep inspiration due to the pain.) Gastrointestinal: other (Surgical changes noted wound vacs have been changed there is tenderness about the wound VAC area but he has active bowel sounds without rebound) Genitourinary: no bladder fullness Skin: warm Musculoskeletal: generalized weakness Neurologic: AAOx3, CN II-XII Intact Psychiatric: interacting appropriately ICD10 Worksheet Patient Problems: Problems Problem Status Onset Perforated diverticulum of large intestine Acute
--- NOTE | 2017-04-01 17:59 | PCMIDPN ---
Assessment/Plan: Assessment: Peritonitis and sepsis with after anastomotic leakage following elective sigmoid colectomy. Patient looks much improved from last week since returning to the emergency room for further debridement and drainage. New onset of pleuritic chest pain and shortness of breath with hypoxia yesterday led to PE diagnosis. Patient now on heparin drip. Plan continue ertapenem monotherapy for coverage. Plan: 1. Continue IV ertapenem. 2. Follow clinical appearance. 04/01/17 17:57 Subjective: Patient suffered shortness of breath with pleuritic chest pain yesterday. Diagnosed with PEs by CT scan. Now newly on heparin drip. Other than that he is feeling well. Objective: Ertapenem # 11 Vital Signs Temp Pulse Resp BP Pulse Ox 37.4 C 110 H 20 130/81 H 96 04/01/17 16:00 04/01/17 16:00 04/01/17 16:00 04/01/17 16:00 04/01/17 16:00 Microbiology 03/25/17 13:05 Gram Stain - Final Other - Aspirate Anaerobic Culture - Final Escherichia Coli Esbl Enterobacter Cloacae Complex Bacteroides Thetaiotaomicron Laboratory Results 04/01/17 05:10 04/01/17 05:10 03/31/17 04/01/17 04/02/17 05:59 05:59 05:59 Intake Total 1500 900 Output Total 1775 900 Balance -275 0 - Physical Exam General Appearance: WD/WN, alert, no apparent distress, thin, non-toxic Respiratory: lungs clear, normal breath sounds Cardiac/Chest: regular rate, rhythm, No tachycardia Skin: normal color, warm/dry, No rash Neuro/Psych: alert, normal mood/affect, oriented x 3 ICD10 Worksheet Patient Problems: Problems Problem Status Onset Perforated diverticulum of large intestine Acute
[2017-04-01] MEDS ORDERED: HEPARIN 10,000 UNIT/10 ML MDV (1,000 UNIT/ML) IVP ONE (18:00)
[2017-04-01] MEDS: IBUPROFEN 600 MG TAB PO SCH (22:38)
[2017-04-02] MEDS: HEPARIN 10,000 UNIT/10 ML MDV (1,000 UNIT/ML) IVP PRN ×4 (01:15→23:27)
[2017-04-02] MEDS: HYDROmorphONE/DILAUDID 1 MG/ML INJ IVP PRN ×2 (05:06→12:00)
[2017-04-02] MEDS: IBUPROFEN 600 MG TAB PO SCH ×3 (05:07→21:22)
[2017-04-02 06:17] LABS: PLATELET COUNT 510 10^3/uL (150-400)
[2017-04-02] MEDS: HEPARIN/DEXTROSE 500 ML IV SCH ×2 (07:37→19:50)
[2017-04-02] MEDS: FAMOTIDINE 20 MG/NACL 50 ML IV SCH ×2 (08:24→21:23)
[2017-04-02] MEDS: SENNOSIDES/DOCUSATE SODIUM TAB PO SCH ×2 (08:24→21:22)
[2017-04-02] MEDS: ERTAPENEM 1 GM VIAL IVP SCH (08:24)
--- NOTE | 2017-04-02 12:56 | PCMIDPN ---
Assessment/Plan: Assessment/Plan: 1. Peritonitis with abscess secondary to anastomotic leak with fecal contamination: - polymicrobial process - cx growing ESBl E.coli, Enterobacter, bacteroides - Currently on invanz -wbc slighlty up today.- likely multifactorial -blood cx 03/17 ngtd - c.diff neg 03/21 - continue present atbx. - Will need at least 4 weeks invanz from last drainage procedure, and likely f/ u Ct ab/p prior to d/c of antibiotics. meds invanz 1g daily - 03/22/17 s/p zosyn s/p fluconazole 03/18- 03/27/17 Subjective: afebrile. feels better with respect to aBdomen and breathing. still with some pleuritic cp with deep breathing. stool output from colostomy stable. Objective: Vital Signs Temp Pulse Resp BP Pulse Ox 36.6 C 104 H 16 120/75 99 04/02/17 11:12 04/02/17 11:12 04/02/17 11:12 04/02/17 11:12 04/02/17 11:12 Microbiology 03/25/17 13:05 Gram Stain - Final Other - Aspirate Anaerobic Culture - Final Escherichia Coli Esbl Enterobacter Cloacae Complex Bacteroides Thetaiotaomicron Laboratory Results 04/02/17 06:11 04/02/17 06:11 04/01/17 04/02/17 04/03/17 05:59 05:59 05:59 Intake Total 900 1440 Output Total 900 1530 Balance 0 -90 - Physical Exam General Appearance: alert, no apparent distress Respiratory: coarse breath sounds Cardiac/Chest: regular rate, rhythm Extremities: No swelling Abdomen: normal bowel sounds, non-tender, soft, other (mid line wound vac noted. colostomy present. ), No distended Skin: No erythema ICD10 Worksheet Patient Problems: Problems Problem Status Onset Perforated diverticulum of large intestine Acute
[2017-04-02] MEDS: oxyCODONE IR 5 MG TAB PO PRN ×2 (13:51→21:22)
--- NOTE | 2017-04-02 14:44 | SOAPPROG ---
SOAP Progress Note Assessment/Plan: Assessment: persistant low grade leukocytosis without significant fever Plan: Increase activity/diet as tolerated (high protein recommended) Abx per ID wound care with epifix to accelerate wound healing 03/26/17 09:41 04/02/17 14:42 Subjective: Resting more comfortably Objective: Vital Signs Temp Pulse Resp BP Pulse Ox 36.6 C 104 H 16 120/75 99 04/02/17 11:12 04/02/17 11:12 04/02/17 11:12 04/02/17 11:12 04/02/17 11:12 Microbiology 03/25/17 13:05 Gram Stain - Final Other - Aspirate Anaerobic Culture - Final Escherichia Coli Esbl Enterobacter Cloacae Complex Bacteroides The[facility]iota[facility] Laboratory Results 04/02/17 06:11 04/02/17 06:11 04/01/17 04/02/17 04/03/17 05:59 05:59 05:59 Intake Total 900 1440 Output Total 900 1530 Balance 0 -90 PT 14.4 SEC (12.0-15.0) 03/31/17 19:50 INR 1.10 (0.83-1.16) 03/31/17 19:50 Physical Exam - Physical Exam General Appearance: mild distress Abdomen: normal bowel sounds, non-tender, soft, other (wound vac intact/LUQ drain site purulent) Male Genitalia: deferred Rectal: deferred Neuro/Psych: alert, normal mood/affect, oriented x 3 ICD10 Worksheet Patient Problems: Problems Problem Status Onset Perforated diverticulum of large intestine Acute
--- NOTE | 2017-04-02 17:15 | HOSPPROG ---
Hospitalist Progress Note Assessment/Plan: 41-year-old male with a prolonged hospital stay secondary to a ruptured colonic anastomosis with intraperitoneal abscess. He is undergoing wound VAC changes and care of a wound dehiscence. 2 days ago the gentleman was diagnosed with a PE and has been placed on heparin. Is been difficult to obtain therapeutic levels heparin and he was bolused with 5000 U last evening. Today the patient reports that his pain is less with deep inspiration and has very minimal cough without hemoptysis. Been able to walk in the [place] sheet with some assistance. Patient reports he continues to have right-sided pain especially with deep inspiration. -acute pulmonary embolus now currently on heparin and will require Coumadin anticoagulation. Respiratory status is stable. -Polymicrobial peritonitis/multiple abd abscesses associated with sigmoid colectomy anastomosis leak (E coli, Enterobacter, Bacteroides). s/p Carrasco's pouch -Midline abscess larger (CT personally reviewed). s/p bedside drainage 03/27, OR drainage on 03/30 -IV Ertapenem. ID agrees though it is an ESBL E coli organism. #Leukocytosis: improved. Afebrile, blood cultures NGTD. White count has remained optimally [id number]. #Abdominal pain: controlled on PO dilaudid. He no longer wants Gabapentin. Tapered-off #Deconditioning: cont out of bed to chair, walking unit. -CM assisting with SNF given numerous cares: wound vac, IV abx, and PT needed #Acute blood loss anemia: 1 unit 03/18. H/H stable #Diet: per surgery #DVT full-dose heparin anticoagulation and will begin on Coumadin Subjective: Reports his right-sided chest pain is less with deep inspiration and he is trying to use incentive spirometer. He is improved Objective: Vital Signs Temp Pulse Resp BP Pulse Ox 37.4 C 107 H 18 120/72 99 04/02/17 16:00 04/02/17 16:00 04/02/17 16:00 04/02/17 16:00 04/02/17 16:00 Microbiology 03/25/17 13:05 Gram Stain - Final Other - Aspirate Anaerobic Culture - Final Escherichia Coli Esbl Enterobacter Cloacae Complex Bacteroides Thetaiotaomicron Laboratory Results 04/02/17 06:11 04/02/17 06:11 04/01/17 04/02/17 04/03/17 05:59 05:59 05:59 Intake Total 900 1440 Output Total 900 1530 Balance 0 -90 PT 14.4 SEC (12.0-15.0) 03/31/17 19:50 INR 1.10 (0.83-1.16) 03/31/17 19:50 Laboratory Tests 03/28/17 03/29/17 04/01/17 04:57 04:33 16:10 WBC 13.46 H Heparin Anti-Xa, Unfract < 0.10 L Albumin 3.3 L 04/02/17 04/02/17 06:11 13:50 WBC 12.22 H Heparin Anti-Xa, Unfract 0.11 L Albumin - Time Spent With Patient Time Spent with Patient: greater than 35 minutes Time Spent with Patient: Greater than 35 minutes spent on this patients care, greater than 50% of time spent counseling, educating, and coordinating care regarding the above mentioned plan. - Pending Discharge Pending Discharge Within 24 Hours: No Pending Discharge Within 48 Hours: No - Physical Exam Constitutional: no apparent distress, chronically ill appearing Eyes: PERRL, anicteric sclera Ears, Nose, Mouth, Throat: moist mucous membranes, hearing normal Cardiovascular: regular rate and rhythym, no murmur, rub, or gallop Respiratory: no respiratory distress, reduced air movement, bronchial breath sounds, other (Few scattered crackles are heard across the right-sided lung field. No friction rub is noted) Gastrointestinal: normoactive bowel sounds, soft, non-tender abdomen, tenderness (Is tenderness about the ostomy site and the wound VAC area. No surrounding cellulitis..) Genitourinary: no bladder fullness Skin: warm Musculoskeletal: generalized weakness Neurologic: AAOx3, CN II-XII Intact Psychiatric: interacting appropriately ICD10 Worksheet Patient Problems: Problems Problem Status Onset Perforated diverticulum of large intestine Acute
[2017-04-02] MEDS: WARFARIN SODIUM 5 MG TAB PO SCH (17:54)
[2017-04-02] MEDS: LORazepam 2 MG/ML INJ IVP PRN (21:22)
[2017-04-03] MEDS: oxyCODONE IR 5 MG TAB PO PRN ×4 (05:22→19:52)
[2017-04-03] MEDS: IBUPROFEN 600 MG TAB PO SCH ×3 (05:22→19:52)
[2017-04-03 05:38] LABS: PLATELET COUNT 530 10^3/uL (150-400)
[2017-04-03 05:50] LABS: INR 1.1 (0.83-1.16); PROTIME(PATIENT) 14.4 SEC (12.0-15.0)
[2017-04-03] MEDS: HEPARIN 10,000 UNIT/10 ML MDV (1,000 UNIT/ML) IVP PRN ×2 (06:08→20:46)
[2017-04-03] MEDS: FAMOTIDINE 20 MG/NACL 50 ML IV SCH ×2 (08:02→19:52)
[2017-04-03] MEDS: SENNOSIDES/DOCUSATE SODIUM TAB PO SCH ×2 (08:02→19:51)
[2017-04-03] MEDS: HEPARIN/DEXTROSE 500 ML IV SCH (08:02)
[2017-04-03] MEDS: ERTAPENEM 1 GM VIAL IVP SCH (08:02)
--- NOTE | 2017-04-03 08:06 | PDCONSULT ---
Teacher'S Aide Note: S- resting comfortably O- P 100 BP 121/84 R 20 Tmax 37.4 O2 sat 99% 3lpm Abd: soft/+BS, wound vac, LUQ wound drainage collection bad and colostomy bag intact without leaks wbc 8.9 Hgb 7.6 Hct 22.6 plat 530K Imp: 1.s/p robotic sigmoid resection complicated by post op bleeding/ anastomotic leak and subsequent wound infection + fascial dehisence and intra- abdominal abscess-infections coming under control 2. pulmonary emboli Rec: continue Abx discussed strategy of ultimate takedown, repair of ventral defect and probable need for diverting ileostomy Key Guzman MD, FACS
[2017-04-03] MEDS: HYDROmorphONE/DILAUDID 1 MG/ML INJ IVP PRN (11:22)
[2017-04-03] MEDS: WARFARIN SODIUM 5 MG TAB PO SCH (14:56)
[2017-04-03] MEDS ORDERED: HEPARIN 10,000 UNIT/10 ML MDV (1,000 UNIT/ML) IVP ONE (15:00)
--- NOTE | 2017-04-03 15:44 | ASMTCMCOM ---
CM Note CM Note Notes: Met with patient to review dc plan of care. He states if he is here another 3 days he may feel well enough to go home with [facility]. As it stands, he may also be accepted to [facility] but with copays that haven't been clearly communicated to him. I will ask the other CM to follow up on this on 04/05/17 so he can make informed decision for placement if that is the plan. CM to follow. Date Signed: 04/03/2017 03:43 PM Electronically Signed By:Ena Mays RN
--- NOTE | 2017-04-03 16:04 | HOSPPROG ---
Hospitalist Progress Note Assessment/Plan: 41-year-old male with a prolonged hospital stay secondary to a ruptured colonic anastomosis with intraperitoneal abscess. He is undergoing wound VAC changes and care of a abscess. 3 days ago the gentleman was diagnosed with a PE and has been placed on heparin. Is been difficult to obtain therapeutic levels heparin and he was bolused with increasing dose of heparin and today we reached therapeutic levels. Chest pain is decreased on the right side teeth and he appears improved. Patient reports he has improved. Patient reports he continues to have right-sided pain especially with deep inspiration, though it is improving in the last 2 days. -acute pulmonary embolus now currently on heparin and will require Coumadin anticoagulation. Respiratory status is stable. -Polymicrobial peritonitis/multiple abd abscesses associated with sigmoid colectomy anastomosis leak (E coli, Enterobacter, Bacteroides). s/p Carrasco's pouch -Midline abscess larger (CT personally reviewed). s/p bedside drainage 03/27, OR drainage on 03/30 -IV Ertapenem. ID agrees though it is an ESBL E coli organism. #Leukocytosis: improved. Afebrile, blood cultures NGTD. White count has remained optimally [id number]. #Abdominal pain: controlled on PO dilaudid. He no longer wants Gabapentin. Tapered-off #Deconditioning: cont out of bed to chair, walking unit. -CM assisting with SNF given numerous cares: wound vac, IV abx, and PT needed #Acute blood loss anemia: 1 unit 03/18. H/H stable #Diet: per surgery #DVT full-dose heparin anticoagulation and will begin on Coumadin Subjective: Reports he is feeling improved with less chest pain and is able to walk in the [place] is only with very deep inspirations he has right-sided pain. No hemoptysis fever chills Objective: Vital Signs Temp Pulse Resp BP Pulse Ox 37.1 C 108 H 16 113/77 95 04/03/17 12:00 04/03/17 12:00 04/03/17 12:00 04/03/17 12:00 04/03/17 12:00 Laboratory Results 04/03/17 05:30 04/03/17 05:30 04/02/17 04/03/17 04/04/17 05:59 05:59 05:59 Intake Total 1440 1500 Output Total 1530 1300 Balance -90 200 PT 14.4 SEC (12.0-15.0) 04/03/17 05:30 INR 1.10 (0.83-1.16) 04/03/17 05:30 - Time Spent With Patient Time Spent with Patient: greater than 35 minutes Time Spent with Patient: Greater than 35 minutes spent on this patients care, greater than 50% of time spent counseling, educating, and coordinating care regarding the above mentioned plan. - Pending Discharge Pending Discharge Within 24 Hours: No Pending Discharge Within 48 Hours: No - Physical Exam Constitutional: no apparent distress Eyes: PERRL, anicteric sclera Ears, Nose, Mouth, Throat: moist mucous membranes, hearing normal Cardiovascular: regular rate and rhythym, no murmur, rub, or gallop Respiratory: no respiratory distress, inspiratory crackles (Few inspiratory crackles are heard although he has reduced air movement.) Gastrointestinal: normoactive bowel sounds, soft, non-tender abdomen, other ( Wound VAC is noted with minimal drainage. The ostomy site has good output.) Genitourinary: no bladder fullness Skin: warm Musculoskeletal: full muscle strength Neurologic: AAOx3, CN II-XII Intact ICD10 Worksheet Patient Problems: Problems Problem Status Onset Perforated diverticulum of large intestine Acute
[2017-04-03] MEDS: LORazepam 2 MG/ML INJ IVP PRN (19:51)
[2017-04-04 03:20] LABS: PLATELET COUNT 513 10^3/uL (150-400)
[2017-04-04 03:29] LABS: INR 1.1 (0.83-1.16); PROTIME(PATIENT) 14.4 SEC (12.0-15.0)
[2017-04-04] MEDS: IBUPROFEN 600 MG TAB PO SCH (05:13)
--- NOTE | 2017-04-04 07:27 | PDCONSULT ---
Fast Food Delivery Driver Note: S- resting comfortably O- P 94 T max 37.3 abd: soft/+BS, wound vac intact purulent output LUQ drain site colostomy functional wbc. 7.3 Hct 21% Imp: clinically improved Rec: wound vac change today with Epifix continue IV Invanz/Diflucan per EUGENIO Guzman MD, FACS
[2017-04-04] MEDS: ERTAPENEM 1 GM VIAL IVP SCH (08:47)
[2017-04-04] MEDS: SENNOSIDES/DOCUSATE SODIUM TAB PO SCH ×2 (08:47→20:18)
[2017-04-04] MEDS: oxyCODONE IR 5 MG TAB PO PRN ×2 (08:47→10:04)
[2017-04-04] MEDS: LORazepam 2 MG/ML INJ IVP PRN ×2 (10:04→20:18)
[2017-04-04] MEDS: HYDROmorphONE/DILAUDID 1 MG/ML INJ IVP PRN ×2 (10:04→10:49)
[2017-04-04] MEDS: FAMOTIDINE 20 MG/NACL 50 ML IV SCH (11:11)
[2017-04-04] MEDS: FAMOTIDINE 20 MG TAB PO SCH ×2 (12:08→20:18)
--- NOTE | 2017-04-04 12:09 | WOCRNPDOC ---
GHADA Advanced Assessment Note - Skin Integrity Problem, Advanced Assess Abdomen Surgical Wound/Incision Dressing Type: Black Vac Foam (x1), Contact Layer (x2 pieces), White Vac Foam ( x1) Dressing Description: Clean/Dry, Intact Exudate Amount: Scant Exudate Characteristic(s): Serosanguinous Integumentary Issue Intervention: Dressing Changed, Skin Tissue Substitute Application (500 Mg Amniofill ) Wound Bed Color: Red, Yellow Wound Bed Constitution: Granulation Tissue (70%), Smooth Tissue (10%), Red/[place] - Non Granular Tissue (20%), Undermining (5-7 oclock 0.7 cm) Wound Edges: Well Defined Site Measurement - Head-to-Toe Length X Width X Depth (cm): 13x7x2 Skin Integrity Problem Comment: No necrosis noted. All of tissue is healthy and viable. Flushed with ns. Skin prep and mastisol jerri wound. 500 mg Amniofill skin tissue substitute applied to wound bed. Covered with x2 layers of mepitel. That was covered with white foam x 1 piece and then one piece of black foam. Suction restarted at -75 mm Hg continuous. Jaylene RECINOS managed colostomy drainage by holding a wafer and bag over area and she was in room for entire dressing change. Technique worked well. Next vac change is due on Tuesday due to graft application. All patients questions answered. - Colostomy Assessment, Advanced Left Lower Abdomen Colostomy Stoma Colostomy Appliance Intact: Yes Colostomy Appliance Currently in Use: One Piece Flat, 2 1/4, Cut to Fit Stoma Color: Red Stoma Turgor: Moist Stoma Shape: Round Stoma Height: Protruding (slightly but mostly flush) Colostomy Size - Head-to-Toe Length X Width X Depth (cm): 30mm Colostomy Details: Raheem's Pouch Peristomal Skin: Intact Stomal Complications: Retraction Colostomy Comment/Treatment Details: stoma is mostly flush with small areas of protrusion. However one piece pouch is working very well and patient has had no issues with leaking nor with jerri stomal breakdown. Patient has not been participating in pouch emptying and was encouraged to participate in full care as much as possible. JORJE Mariee in room for discussion as well.
[2017-04-04] MEDS: HEPARIN 10,000 UNIT/10 ML MDV (1,000 UNIT/ML) IVP PRN ×2 (13:44→21:43)
--- NOTE | 2017-04-04 15:10 | PCMIDPN ---
Assessment/Plan: # Sepsis due polymicrobial peritonitis/abdominal abscess and wound infection with after anastomotic leakage following elective robotic sigmoid colectomy. Significant clinical improvement following multiple surgical interventions. Has L sided drain still with purulent drainage. Nl WBC and AF! Thrombocytosis is also improving. --continue ertapenem --tentatively planned 4 week of ertapenem following last intra-abdominal surgical intervention, 04/28/2017 Microbiology 03/18 tissue cultures: ESBL E coli (resistant to fluoroquinolones, susceptible to Bactrim and ertapenem) and Enterobacter, Bacteroides 03/17 blood cultures (2) negative 03/25 IR aspiration: E coli, enterobacter 03/27 Incision cx : ESBL E coli Medications Ertapenem 1 g IV daily, #14 Subjective: feeling more energetic less abdominal pain, requiring less pain meds Objective: Vital Signs Temp Pulse Resp BP Pulse Ox 36.9 C 89 16 111/66 97 04/04/17 07:46 04/04/17 07:46 04/04/17 07:46 04/04/17 07:46 04/04/17 07:46 Laboratory Results 04/04/17 03:10 04/04/17 03:10 04/03/17 04/04/17 04/05/17 05:59 05:59 05:59 Intake Total 1500 600 Output Total 1300 200 Balance 200 400 - Physical Exam General Appearance: alert, no apparent distress EENT: pale conjunctiva Respiratory: lungs clear, No accessory muscle use Cardiac/Chest: tachycardia Extremities: No pedal edema Abdomen: other (+BS, midline wound vac (report today good granulation tissue), L sided drains with cloudy draiange; ostomy site healthy appearing, soft NT) Male Genitalia: No valero Skin: No rash Neuro/Psych: alert, normal mood/affect, oriented x 3 - Line/s LUE PICC Lines: No drainage, No erythema - Time Spent With Patient Time Spent with Patient: greater than 25 minutes Time Spent with Patient: Greater than 25 minutes spent on this patients care, greater than 50% of time spent counseling, educating, and coordinating care regarding the above mentioned plan. ICD10 Worksheet Patient Problems: Problems Problem Status Onset Perforated diverticulum of large intestine Acute
--- NOTE | 2017-04-04 15:29 | SOAPPROG ---
SOAP Progress Note Assessment/Plan: 41-year-old male with a prolonged hospital stay secondary to a ruptured colonic anastomosis with intraperitoneal abscess. -Polymicrobial peritonitis/multiple abd abscesses associated with sigmoid colectomy anastomosis leak (E coli, Enterobacter, Bacteroides). s/p Carrasco's pouch Midline abscess larger, s/p bedside drainage 03/27, OR drainage on 03/30 IV Ertapenem revwd are plan with ID -acute pulmonary embolus, on heparin discussed with pharmacist, transition to PO coumadin sxs improving, O2 need minimum #Leukocytosis: improved. Afebrile, blood cultures NGTD #Abdominal pain: controlled on PO with occ IV dilaudid/ativan (changed to po ativan, will review pain meds with him tomorrow also) #Deconditioning: cont out of bed to chair, walking unit. CM assisting with SNF given numerous cares: wound vac, IV abx, and PT needed #Acute blood loss anemia: s/p 1 unit 03/18. H/H slowly trending down discussed option of repeat transfusion #Diet: per surgery #wt loss secondary to poor intake, prolonged illness discussed diet in general encouraged smoothies/protein, revwd high iron foods Subjective: Gradually feeling better, ambulating with PT and has more motivation/ inclination to get up/move but quickly tires. >10 kg wt loss noted. Not much appetite but eating more. Chest discomfort resolving, no SOB. Objective: Vital Signs Temp Pulse Resp BP Pulse Ox 98.4 F 89 16 111/66 97 04/04/17 07:46 04/04/17 07:46 04/04/17 07:46 04/04/17 07:46 04/04/17 07:46 Laboratory Results 04/04/17 03:10 04/04/17 03:10 04/03/17 04/04/17 04/05/17 11:59 11:59 11:59 Intake Total 1500 600 Output Total 1300 200 Balance 200 400 PT 14.4 SEC (12.0-15.0) 04/04/17 03:10 INR 1.10 (0.83-1.16) 04/04/17 03:10 - Time Spent With Patient Time Spent With Patient: 45 - Pending Discharge Pending Discharge Within 48 Hours: No Physical Exam - Physical Exam General Appearance: WD/WN, alert, no apparent distress, thin Respiratory: normal breath sounds, No respiratory distress Cardiac/Chest: normal peripheral pulses, regular rate, rhythm, No edema Abdomen: soft Skin: warm/dry Neuro/Psych: alert, normal mood/affect, No cognition abnormalities ICD10 Worksheet Patient Problems: Problems Problem Status Onset Perforated diverticulum of large intestine Acute
[2017-04-04] MEDS ORDERED: WARFARIN SODIUM 7.5 MG TAB PO ONE (16:00)
[2017-04-05] MEDS: HEPARIN/DEXTROSE 500 ML IV SCH ×2 (02:26→14:27)
[2017-04-05] MEDS: oxyCODONE IR 5 MG TAB PO PRN (03:42)
[2017-04-05 04:54] LABS: INR 1.15 (0.83-1.16); PROTIME(PATIENT) 14.9 SEC (12.0-15.0)
[2017-04-05] MEDS: HEPARIN 10,000 UNIT/10 ML MDV (1,000 UNIT/ML) IVP PRN ×3 (05:15→17:21)
--- NOTE | 2017-04-05 06:53 | SOAPPROG ---
SOAP Progress Note Assessment/Plan: Assessment: Plan: Subjective: FEELS GOOD CONSIDERIN, no sob abd soft, vac anc drain in place, stoma with good output pt eating well, ambulating without dizzyness hep level low- got bolus, pharmacydosing coumadin. inr still normal today. access pe's- crystal and being placed on coumadin wound- crystal with vac abscess- drained, afebrile plan regulae coumadin prior to discharge. would not transfuse despite low hct- pt tolerating this well. Objective: Vital Signs Temp Pulse Resp BP Pulse Ox 37.3 C 106 H 16 114/75 98 04/04/17 22:39 04/04/17 22:39 04/04/17 22:39 04/04/17 22:39 04/04/17 22:39 Laboratory Results 04/05/17 04:40 04/04/17 03:10 04/04/17 04/05/17 04/06/17 05:59 05:59 05:59 Intake Total 600 1360 Output Total 200 1700 Balance 400 -340 PT 14.9 SEC (12.0-15.0) 04/05/17 04:40 INR 1.15 (0.83-1.16) 04/05/17 04:40 ICD10 Worksheet Patient Problems: Problems Problem Status Onset Perforated diverticulum of large intestine Acute
[2017-04-05] MEDS: SENNOSIDES/DOCUSATE SODIUM TAB PO SCH ×2 (08:37→21:09)
[2017-04-05] MEDS: ERTAPENEM 1 GM VIAL IVP SCH (08:38)
[2017-04-05] MEDS: FAMOTIDINE 20 MG TAB PO SCH ×2 (08:38→21:09)
[2017-04-05] MEDS: ACETAMINOPHEN 325 MG TAB PO PRN (08:41)
[2017-04-05] MEDS: LORazepam 1 MG TAB PO PRN ×2 (10:52→21:13)
[2017-04-05] MEDS ORDERED: WARFARIN SODIUM 7.5 MG TAB PO ONE (16:00)
--- NOTE | 2017-04-05 16:09 | ASMTCMCOM ---
CM Note CM Note Notes: CM met w/ pt for dispo planning. Pt would like to see how he feels in the coming days before making a decision about SNF. Pt does not wish to go to rehab if he doesn't need to. Pt hopes to get strong enough to d/c w/ HC, RN daily. CM called Monae at [facility] to inform her. CM to follow. Plan: TBD Date Signed: 04/05/2017 04:08 PM Electronically Signed By:PK Wheeler
--- NOTE | 2017-04-05 17:50 | PCMIDPN ---
Assessment/Plan: Assessment/Plan: * Sepsis due to peritonitis associated with anastomotic leak after sigmoid colectomy status post repeat operative drainage of abscess 03/27/2017: Small amount of residual necrotic tissue noted intraoperatively. Cultures from 2016 show growth of ESBL producing E coli. Overall continues to show continued clinical improvement. White blood cell count and platelet count have both normalized suggesting resolving infectious process. Plan 4 weeks of ertapenem post debridement on 03/27/2017 which will be continued through 04/28/2017. 04/05/17 17:47 Subjective: feels significantly improved versus my last visit. Notes some leaking around ostomy bag earlier today. Objective: Vital Signs Temp Pulse Resp BP Pulse Ox 37.4 C 100 16 115/75 93 04/05/17 16:00 04/05/17 16:00 04/05/17 16:00 04/05/17 16:00 04/05/17 16:00 Laboratory Results 04/05/17 04:40 04/04/17 03:10 04/04/17 04/05/17 04/06/17 05:59 05:59 05:59 Intake Total 600 1360 460 Output Total 200 1700 1035 Balance 400 340 -575 Ertapenem # 15 Laboratory Tests 04/04/17 03:10 Total Bilirubin 0.3 AST 16 L ALT 36 Alkaline Phosphatase 106 Albumin 2.8 L - Physical Exam General Appearance: alert, no apparent distress EENT: No scleral icterus, No thrush Respiratory: lungs clear, No respiratory distress Cardiac/Chest: regular rate, rhythm Abdomen: non-tender, other ( wound VAC in place without surrounding erythema), No distended - Line/s LUE PICC Lines: No drainage, No erythema ICD10 Worksheet Patient Problems: Problems Problem Status Onset Perforated diverticulum of large intestine Acute
--- NOTE | 2017-04-05 18:55 | SOAPPROG ---
SOAP Progress Note Assessment/Plan: - Sepsis due to peritonitis associated with anastomotic leak after sigmoid colectomy status post repeat operative drainage of abscess 03/27/2017 (E coli, Enterobacter, Bacteroides). s IV Ertapenem until end Apr per ID clinically improving daily blood cx NGTD -acute pulmonary embolus, on heparin transitioning to PO coumadin sub therapeutic levels of heparin noted sxs improving, no further hypoxia/off O2 today #Abdominal pain: controlled on PO with occ IV dilaudid/ativan #Deconditioning: cont out of bed to chair, walking unit. CM assisting with SNF vss home care: wound vac, IV abx, and PT needed #Acute blood loss anemia: s/p 1 unit 03/18. H/H slowly trending down discussed option of repeat transfusion, he declines check iron, consider iron IV #Diet: per surgery #wt loss secondary to poor intake, prolonged illness discussed diet in general encouraged smoothies/protein, revwd high iron foods Subjective: Feels OK. Walking more, not as short of breath and minimal pain in lungs. Trying to eat a bit more. Objective: Vital Signs Temp Pulse Resp BP Pulse Ox 99.3 F 100 16 115/75 93 04/05/17 16:00 04/05/17 16:00 04/05/17 16:00 04/05/17 16:00 04/05/17 16:00 Laboratory Results 04/05/17 04:40 04/04/17 03:10 04/04/17 04/05/17 04/06/17 11:59 11:59 11:59 Intake Total 600 1360 460 Output Total 200 2015 720 Balance 400 -485 -260 PT 14.9 SEC (12.0-15.0) 04/05/17 04:40 INR 1.15 (0.83-1.16) 04/05/17 04:40 - Pending Discharge Pending Discharge Within 48 Hours: No Physical Exam - Physical Exam General Appearance: alert, no apparent distress, thin Respiratory: lungs clear, normal breath sounds, No respiratory distress Cardiac/Chest: regular rate, rhythm, No edema Abdomen: normal bowel sounds, soft Skin: warm/dry Neuro/Psych: alert, normal mood/affect, No cognition abnormalities, No speech abnormalities ICD10 Worksheet Patient Problems: Problems Problem Status Onset Perforated diverticulum of large intestine Acute
[2017-04-06] MEDS: HEPARIN/DEXTROSE 500 ML IV SCH ×3 (02:02→23:01)
[2017-04-06 04:42] LABS: INR 1.26 (0.83-1.16)
[2017-04-06] MEDS: HEPARIN 10,000 UNIT/10 ML MDV (1,000 UNIT/ML) IVP PRN (06:15)
--- NOTE | 2017-04-06 08:31 | HOSPPROG ---
Hospitalist Progress Note Assessment/Plan: #Polymicrobial peritonitis/multiple abd abscesses associated with sigmoid colectomy anastomosis leak (E coli, Enterobacter, Bacteroides). s/p Carrasco's pouch -Midline abscess larger (CT personally reviewed). s/p bedside drainage 03/27 -03/28 drainage of LUQ and abdominal wall abscess, wound vac -IV Ertapenem through 04/28/17 #Tachycardia: feeling anxious. Stat H/H. BP stable #Acute bilateral pulmonary embolism: heparin gtt, warfarin #Depressed mood/anxiety: situational with acute illness. Mood was stable prior to hospitalization. Ativan only at night due to sedation. Educated on SSRI. Will have spiritual services seem him for emotional support. If not effective, can consult Mandi Juarez with ment #Leukocytosis: resolved. Afebrile, blood cultures NGTD #SOB/chest pain: repeat CXR negative for PTX and PICC properly placed #Abdominal pain: controlled on PO dilaudid. Tapered off Gabapentin #Deconditioning: cont out of bed to chair, walking unit. -CM assisting with SNF given numerous cares: wound vac, IV abx, and PT needed #Acute blood loss anemia: 1 unit 03/18. H/H pending #Diet: per surgery #DVT ppx: Lovenox Disp: we will continue to follow, please call if questions Subjective: feeling anxious. SOB and right-sided CP improved Objective: Vital Signs Temp Pulse Resp BP Pulse Ox 37.3 C 103 H 16 119/76 93 04/05/17 19:14 04/05/17 19:14 04/05/17 19:14 04/05/17 19:14 04/05/17 19:14 Laboratory Results 04/06/17 03:55 04/04/17 03:10 04/05/17 04/06/17 04/07/17 05:59 05:59 05:59 Intake Total 1360 910 Output Total 1700 1335 570 Balance -340 -425 -570 PT 16.0 SEC (12.0-15.0) H 04/06/17 03:55 INR 1.26 (0.83-1.16) H 04/06/17 03:55 - Physical Exam Constitutional: no apparent distress, other Eyes: PERRL, pale conjunctiva Ears, Nose, Mouth, Throat: moist mucous membranes Cardiovascular: regular rate and rhythym, no murmur, rub, or gallop Respiratory: reduced air movement Gastrointestinal: normoactive bowel sounds, other (wound vac in place. Ostomy with pink tissue) Genitourinary: No valero in urethra Skin: warm Musculoskeletal: full muscle strength Neurologic: AAOx3, CN II-XII Intact Psychiatric: anxious, flat affect ICD10 Worksheet Patient Problems: Problems Problem Status Onset Perforated diverticulum of large intestine Acute
[2017-04-06] MEDS: ERTAPENEM 1 GM VIAL IVP SCH (09:19)
[2017-04-06] MEDS: SENNOSIDES/DOCUSATE SODIUM TAB PO SCH ×2 (09:22→19:57)
[2017-04-06] MEDS: FAMOTIDINE 20 MG TAB PO SCH ×2 (09:22→19:57)
[2017-04-06] MEDS ORDERED: WARFARIN SODIUM 5 MG TAB PO ONE (16:00)
--- NOTE | 2017-04-06 19:30 | SOAPPROG ---
EMANUEL Progress Note Assessment/Plan: Assessment: 41 MALE WITH LEAKED COLON ANASTAMOSES/ NOW WITH COLOSTOMY AND ABDOMINAL DRAIN OSTOMY OK/ MINIMAL DRAINAGE/ WOUND OK/ AFEBRILE FEELS MUCH BETTER TODAY Plan:ADVANCE DIET 04/06/17 19:28 Objective: Vital Signs Temp Pulse Resp BP Pulse Ox 37.3 C 105 H 12 118/76 96 04/06/17 16:00 04/06/17 16:00 04/06/17 16:00 04/06/17 16:00 04/06/17 16:00 Laboratory Results 04/06/17 10:00 04/04/17 03:10 04/05/17 04/06/17 04/07/17 05:59 05:59 05:59 Intake Total 1010 305 5030 Output Total 1700 1335 1920 Balance -340 -425 -900 PT 16.0 SEC (12.0-15.0) H 04/06/17 03:55 INR 1.26 (0.83-1.16) H 04/06/17 03:55 ICD10 Worksheet Patient Problems: Problems Problem Status Onset Perforated diverticulum of large intestine Acute
[2017-04-06] MEDS: LORazepam 1 MG TAB PO PRN (20:06)
[2017-04-06] MEDS ORDERED: CALCIUM CARBONATE 500 MG CHEWABLE TAB PO PRN (22:00)
[2017-04-06 23:08] VITALS: RESP 16
[2017-04-07 05:39] LABS: PLATELET COUNT 557 10^3/uL (150-400)
[2017-04-07 05:43] LABS: INR 1.33 (0.83-1.16); PROTIME(PATIENT) 16.7 SEC (12.0-15.0)
[2017-04-07] MEDS: FAMOTIDINE 20 MG TAB PO SCH ×2 (08:14→21:06)
[2017-04-07] MEDS: SENNOSIDES/DOCUSATE SODIUM TAB PO SCH (08:50)
[2017-04-07] MEDS: HEPARIN/DEXTROSE 500 ML IV SCH (09:58)
[2017-04-07] MEDS: ERTAPENEM 1 GM VIAL IVP SCH (09:58)
--- NOTE | 2017-04-07 11:45 | SOAPPROG ---
EMANUEL Progress Note Assessment/Plan: Assessment: 41 MALE WITH LEAKED COLON ANASTAMOSES/ NOW WITH COLOSTOMY AND ABDOMINAL DRAIN OSTOMY OK/ MINIMAL DRAINAGE/ WOUND OK/ AFEBRILE FEELS MUCH BETTER TODAY Plan:ADVANCE DIET 04/06/17 19:28 04/07/17 11:44 AFEBRILE/CONTINUES TO IMPROVE/DECREASED PAIN/OSTOMY FUNCTION GOOD/SOME BMS FROM HIS RECTUM/WOUND OKAY/MINIMAL DRAINAGE PLAN: HOPEFULLY HOME IN 1-2 DAYS WITH HOME CARE AND WOUND VAC AND IV ANTIBIOTICS Objective: Vital Signs Temp Pulse Resp BP Pulse Ox 36.8 C 99 16 125/77 H 95 04/07/17 07:43 04/07/17 07:43 04/07/17 07:43 04/07/17 07:43 04/07/17 07:43 Laboratory Results 04/07/17 05:17 04/07/17 05:17 04/06/17 04/07/17 04/08/17 05:59 05:59 05:59 Intake Total 910 1020 Output Total 1335 1920 Balance -425 -900 PT 16.7 SEC (12.0-15.0) H 04/07/17 05:17 INR 1.33 (0.83-1.16) H 04/07/17 05:17 ICD10 Worksheet Patient Problems: Problems Problem Status Onset Perforated diverticulum of large intestine Acute
--- NOTE | 2017-04-07 12:30 | HOSPPROG ---
Hospitalist Progress Note Assessment/Plan: New pt encounter #Polymicrobial peritonitis/multiple abd abscesses associated with sigmoid colectomy anastomosis leak (E coli, Enterobacter, Bacteroides). s/p Carrasco's pouch -Midline abscess larger (CT personally reviewed). s/p bedside drainage 03/27 -03/28 drainage of LUQ and abdominal wall abscess, wound vac -IV Ertapenem through 04/28/17 #Tachycardia: resolved #Acute bilateral pulmonary embolism: -change to Lovenox bridge per Nursing request. -Cont Warfarin, INR is not therapeutic yet #Depressed mood/anxiety: situational with acute illness. Mood was stable prior to hospitalization. Ativan only at night due to sedation. Educated on SSRI. Will have spiritual services seem him for emotional support. If not effective, can consult Mandi Juarez with ment #Leukocytosis: resolved. Afebrile, blood cultures NGTD #SOB/chest pain: repeat CXR negative for PTX and PICC properly placed #Abdominal pain: controlled on PO dilaudid. Tapered off Gabapentin #Deconditioning: cont out of bed to chair, walking unit. -CM assisting with SNF given numerous cares: wound vac, IV abx, and PT needed #Acute blood loss anemia: 1 unit 03/18. -Still anemic, will follow. #Loose stool, nursing reports loose stool, will hold schedule stool softner. Cont PRN. #Diet: Regular #DVT ppx: Lovenox Disp: we will continue to follow, please call if questions Subjective: VSS, no resp symptoms. no CP or SOB. tolerating diet. Objective: Vital Signs Temp Pulse Resp BP Pulse Ox 36.8 C 99 16 125/77 H 95 04/07/17 07:43 04/07/17 07:43 04/07/17 07:43 04/07/17 07:43 04/07/17 07:43 Laboratory Results 04/07/17 05:17 04/07/17 05:17 04/06/17 04/07/17 04/08/17 05:59 05:59 05:59 Intake Total 910 1020 Output Total 1335 1920 Balance -425 -900 PT 16.7 SEC (12.0-15.0) H 04/07/17 05:17 INR 1.33 (0.83-1.16) H 04/07/17 05:17 - Physical Exam Constitutional: no apparent distress, appears nourished Eyes: PERRL, EOMI Ears, Nose, Mouth, Throat: moist mucous membranes, hearing normal Cardiovascular: regular rate and rhythym, no murmur, rub, or gallop, No JVD, No edema Respiratory: no respiratory distress, no rales or rhonchi, clear to auscultation Skin: warm Neurologic: AAOx3 Psychiatric: interacting appropriately, not anxious, not encephalopathic Lymph, Heme, Immunologic: No petechiae ICD10 Worksheet Patient Problems: Problems Problem Status Onset Perforated diverticulum of large intestine Acute
[2017-04-07] MEDS: ENOXAPARIN 80 MG/0.8 ML SYR SC SCH ×2 (14:44→21:06)
[2017-04-07] MEDS ORDERED: WARFARIN SODIUM 5 MG TAB PO ONE (16:00)
--- NOTE | 2017-04-07 17:25 | ASMTCMCOM ---
CM Note CM Note Notes: Vadim met w/ Pt. in room today to discuss d/c plan. Pt. now confident that he would like to go home with services. Pt. will need wound vac, IV antibiotics, and ostomy care per beside RN. Vadim contacted fire safety manager Malena Santo, JORJE who assisted in completing wound vac application. CM colleague Heather called Dr. Ballesteros to ask him to complete and sign it - located in hard chart. Makayla from [facility] came to see Pt. r.e. IV infusion services. Makayla concerned about Pt's insurance since he is in between semesters and might not have coverage. Makayla investigating. Vadim called Dionne at [facility] to have [facility] assess Pt's eligibility for Medicaid. Pt. stated he was glad to have met w/ [employer] who helped him see his hospital course as a trauma and helped him understand his feelings better. Pt. looking forward to d/c today. May be able to go home Tuesday or Tuesday per RN. Upon SW questioning, Pt. feels he has a lot of good social support. SW to follow for d/c POC. Date Signed: 04/07/2017 05:25 PM Electronically Signed By:Nicky Love LCSW
[2017-04-07] MEDS: oxyCODONE IR 5 MG TAB PO PRN (21:06)
[2017-04-07] MEDS: LORazepam 1 MG TAB PO PRN (21:28)
[2017-04-08 05:17] LABS: PLATELET COUNT 536 10^3/uL (150-400)
[2017-04-08 05:41] LABS: INR 1.38 (0.83-1.16); PROTIME(PATIENT) 17.1 SEC (12.0-15.0)
[2017-04-08] MEDS: FAMOTIDINE 20 MG TAB PO SCH ×2 (09:03→21:28)
[2017-04-08] MEDS: ENOXAPARIN 80 MG/0.8 ML SYR SC SCH ×2 (09:04→21:28)
[2017-04-08] MEDS: ERTAPENEM 1 GM VIAL IVP SCH (09:04)
--- NOTE | 2017-04-08 11:11 | SOAPPROG ---
SOAP Progress Note Assessment/Plan: Assessment: s/p drainage of wound infection/abdominal abscess wound vac/passive drain LUQ colostomy following robotic sigmoid resection complicated by bleeding and anastomotic leak pulmonary embolism Plan: Increase activity/diet as tolerated (high protein recommended) Abx per ID wound care with epifix to accelerate wound healing continue anticoagulation discussed transition to [facility] which I anticipate he will be ready for early next week. 03/26/17 09:41 04/02/17 14:42 04/08/17 11:08 Subjective: resting more comfortably/mild abdominal pain Objective: Vital Signs Temp Pulse Resp BP Pulse Ox 37.2 C 93 16 117/73 94 04/08/17 07:49 04/08/17 07:49 04/08/17 07:49 04/08/17 07:49 04/08/17 07:49 Laboratory Results 04/08/17 05:10 04/07/17 05:17 04/07/17 04/08/17 04/09/17 05:59 05:59 05:59 Intake Total 1020 800 Output Total 1920 1775 150 Balance -900 -975 -150 PT 17.1 SEC (12.0-15.0) H 04/08/17 05:10 INR 1.38 (0.83-1.16) H 04/08/17 05:10 - Pending Discharge Pending Discharge Within 24 Hours: No Pending Discharge Within 48 Hours: No Physical Exam - Physical Exam General Appearance: alert, mild distress Respiratory: lungs clear, decreased breath sounds Cardiac/Chest: regular rate, rhythm Abdomen: soft, other (LUQ abscess drainage purulent/wound vac intact/colostomy functioning) Neuro/Psych: alert, normal mood/affect, oriented x 3 ICD10 Worksheet Patient Problems: Problems Problem Status Onset Perforated diverticulum of large intestine Acute
[2017-04-08] MEDS: oxyCODONE IR 5 MG TAB PO PRN (11:43)
[2017-04-08] MEDS: HYDROmorphONE/DILAUDID 1 MG/ML INJ IVP PRN (11:44)
--- NOTE | 2017-04-08 13:36 | WOCRNPDOC ---
WOCRN Advanced Assessment Note - Skin Integrity Problem, Advanced Assess Abdomen Surgical Wound/Incision Dressing Type: Black Vac Foam (2 pieces), Mepitel (Versatel contact layer), White Vac Foam (1 piece), Wound Vac Dressing Description: Intact Exudate Amount: Minimal Exudate Color: Reddish/Yellow Exudate Characteristic(s): Serosanguinous Integumentary Issue Intervention: Dressing Changed Isha Wound Tissue: Intact Isha Wound Swelling: None Wound Bed Color: Red, Yellow (residual Amniofill placental tissue) Wound Bed Constitution: Granulation Tissue (30%), Red/[place]onia - Non Granular Tissue (70%) Wound Edges: Well Defined Site Odor: None Site Measurement - Head-to-Toe Length X Width X Depth (cm): 12.5cmx6.2cmx1.8cm Skin Integrity Problem Comment: Visible Amniofill noted in wound bed; this was placed on 04/04. Rather than cleanse and remove this residual product, I left it in place and rehydrated the wound bed w/ 10mL NS. Granulation tissue along the margins and scattered throughout the wound bed. Remaining wound bed is smooth, non-granulating tissue, all of which is red and beefy w/ no apparent necrosis. Periwound skin is intact w/ no erythema or swelling. Periwound skin prepped and draped; Mastisol applied to L margin to promote better adherence of vac drape. Versatel contact layer applied to wound base, followed by one piece of white vac foam and two pieces of black vac foam, and vac settings resume at -75mmHg, low continuous suction. Patient tolerated the procedure well. Assisted by POOL PLAYER Tammi Blue. Left Lateral Abdomen Dressing Type: Other Other Dressing Type: 2-piece ostomy appliance Dressing Description: Shadowed Exudate Amount: Minimal Exudate Color: Reddish/Yellow Exudate Characteristic(s): Serosanguinous, Thick Integumentary Issue Intervention: Dressing Changed Isha Wound Tissue: Intact Isha Wound Swelling: None Wound Bed Color: Red Wound Bed Constitution: Red/[place] - Non Granular Tissue Wound Edges: Well Defined Site Measurement - Head-to-Toe Length X Width X Depth (cm): 2cmx1.8cmx nir drains Skin Integrity Problem Comment: Red, rubber catheter drains sutured in place and intact on L lateral abdomen. Existing, 2-piece ostomy appliance removed; thick, serosanguinous exudate noted in ostomy pouch. Isha-wound skin is intact w / no erythema or breakdown observed. Site cleansed and new, 2-piece pouching system applied. - Colostomy Assessment, Advanced Left Lower Abdomen Colostomy Stoma Colostomy Appliance Intact: No Colostomy Appliance Currently in Use: One Piece Flat, 2 1/4, Cut to Fit Stoma Color: Red Stoma Turgor: Moist Stoma Shape: Round Stoma Height: Protruding Slightly Mucocutaneus Junction: Intact Colostomy Effluent: Fecal Colostomy Details: Raheem's Pouch Peristomal Skin: Intact Colostomy Comment/Treatment Details: Ostomy appliance was not intact along medial border. Entire appliance removed during midline abdominal dressing change. Stoma is moist, red, protruding very slightly above the abdomen. Peristomal skin is intact w/ no breakdown evident. ESTEFANY Cadena cleansed site and held pouching system over the stoma while midline dressing was changed, after which barrier was stuck down to the peristomal skin.
--- NOTE | 2017-04-08 14:21 | HOSPPROG ---
Hospitalist Progress Note Assessment/Plan: #Polymicrobial peritonitis/multiple abd abscesses associated with sigmoid colectomy anastomosis leak (E coli, Enterobacter, Bacteroides). s/p Carrasco's pouch -Midline abscess larger (CT personally reviewed). s/p bedside drainage 03/27 -03/28 drainage of LUQ and abdominal wall abscess, wound vac -IV Ertapenem through 04/28/17 #Tachycardia: resolved #Acute bilateral pulmonary embolism: -change to Lovenox bridge -Cont Warfarin, INR is not therapeutic yet, reviewed today #Depressed mood/anxiety: situational with acute illness. Mood was stable prior to hospitalization. Educated on SSRI. Will have spiritual services seem him for emotional support. If not effective, can consult Mandi Juarez with ment #Leukocytosis: resolved. Afebrile, blood cultures NGTD #SOB/chest pain: repeat CXR negative for PTX and PICC properly placed #Abdominal pain: controlled on PO dilaudid. Tapered off Gabapentin #Deconditioning: cont out of bed to chair, walking unit. -CM assisting with SNF given numerous cares: wound vac, IV abx, and PT needed #Acute blood loss anemia: 1 unit 03/18. -Still anemic, will follow. #Loose stool, nursing reports loose stool, will hold schedule stool softner. Cont PRN. #insomnia: will provide Benadryl PRN. He does not want ambien. Would like to avoid benzo's as well. #Diet: Regular #DVT ppx: Lovenox Disp: we will continue to follow, please call if questions Subjective: wants benadryl to sleep at night. no cp or sob. on RA Objective: Vital Signs Temp Pulse Resp BP Pulse Ox 37.2 C 93 16 117/73 94 04/08/17 07:49 04/08/17 07:49 04/08/17 07:49 04/08/17 07:49 04/08/17 07:49 Laboratory Results 04/08/17 05:10 04/07/17 05:17 04/07/17 04/08/17 04/09/17 05:59 05:59 05:59 Intake Total 1020 800 Output Total 1920 1775 150 Balance -900 -975 -150 PT 17.1 SEC (12.0-15.0) H 04/08/17 05:10 INR 1.38 (0.83-1.16) H 04/08/17 05:10 - Physical Exam Constitutional: no apparent distress, appears nourished Eyes: PERRL, EOMI Ears, Nose, Mouth, Throat: moist mucous membranes, hearing normal Cardiovascular: regular rate and rhythym, no murmur, rub, or gallop Respiratory: no respiratory distress, no rales or rhonchi, clear to auscultation Gastrointestinal: normoactive bowel sounds, soft, non-tender abdomen Genitourinary: no bladder fullness Skin: warm Neurologic: AAOx3 Psychiatric: interacting appropriately, not anxious, not encephalopathic ICD10 Worksheet Patient Problems: Problems Problem Status Onset Perforated diverticulum of large intestine Acute
[2017-04-08] MEDS ORDERED: WARFARIN SODIUM 5 MG TAB PO ONE (16:00)
--- NOTE | 2017-04-08 16:12 | ASMTCMCOM ---
CM Note CM Note Notes: Today Makayla from [facility] confirmed they can provide IV infusion services. Deductible is met. Coverage is at 80% until $5,000. Likely will meet max due to hospitalization. Thus, IV services will likely be covered with no large fees. Wound vac is awaiting approval. Side Stitching Machine Operator Malena Santo is managing process. BC, Family , and [facility] all formerly took [employer]-based insurances ([facility] but do not anymore. Sent new referal today to [facility] via BTR. Makayla from [facility] will call her contact at [facility] to assist in getting a home RN. SWer met w/ Pt. today. Pt. states he has been told by Dr. Guzman that he will likely d/c at the earliest on Tuesday. CM to follow. Date Signed: 04/08/2017 04:12 PM Electronically Signed By:Nicky Love LCSW
--- NOTE | 2017-04-08 16:44 | PDIAF ---
- Diagnosis Diagnosis: Peritonitis, intraabdominal abscess Code Status: Full Code - Medication Management Discharge Medications: Medications to Continue on Transfer Propranolol HCl [Inderal 20mg (*)] 20 mg PO DAILY PRN 05/16/15 [Last Taken 3 Weeks Ago ~02/22/17] Acetaminophen [Tylenol 325mg (*)] 325 mg PO DAILY PRN 02/07/17 [Last Taken 1 Week Ago ~03/08/17] Herbals/Supplements -Info Only 1 ea PO DAILY 02/07/17 [Last Taken 1 Week Ago ~] Retirement Antibiotics: Invanz 1 g IV q 24 Retirement Antibiotic Stop Date: 04/28/17 Discharge Medications: Refer to the Discharge Home Medication list for PRN reason. PICC Care - Routine: Yes - Orders Services needed: Home Custodial Care Face to Face: I certify that this patient was under my care and that I had the required [id number] encounter meeting the encounter requirements on the discharge day. My findings support the fact that the patient is homebound as defined in Home Care Face to Face Continued: CMS Chapter 7 Medicare Benefits Manual 30.1.1 , The condition of the patient is such that there exists a normal inability to leave home and consequently, leaving home would require a considerable and taxing effort. Isolation Type: Contact Isolation - Labs/Radiology CBC w/diff Date: 04/14/17 (Weekly Q ) CMP Date: 04/14/17 (Weekly Q ) - Follow Up Care Current Providers and Referrals: NONE *PRIMARY CARE P,. [Primary Care Provider] -
--- NOTE | 2017-04-08 18:05 | PCMIDPN ---
Assessment/Plan: Assessment/Plan: * Sepsis due to peritonitis associated with anastomotic leak after sigmoid colectomy status post repeat operative drainage of abscess 03/27/2017: Continued clinical improvement with improving oral intake. Tolerating ertapenem and PICC line well. Plan 4 weeks of therapy post drainage on with stop date for ertapenem of 04/28/2017. Anticipate probable discharge home early next week. Plan weekly laboratories while on ertapenem therapy. Time spent, 25 min, of which greater than half was spent in education/counseling /coordination of care related to ongoing plan of care including discussions with patient and discharge planning. 04/08/17 18:02 04/08/17 18:03 Subjective: Feels much better. Appetite improving and tolerating oral intake. Wound VAC changed at bedside earlier today. Objective: Vital Signs Temp Pulse Resp BP Pulse Ox 36.7 C 107 H 16 105/82 H 93 04/08/17 15:51 04/08/17 15:51 04/08/17 15:51 04/08/17 15:51 04/08/17 15:51 Laboratory Results 04/08/17 05:10 04/07/17 05:17 04/07/17 04/08/17 04/09/17 05:59 05:59 05:59 Intake Total 1020 800 450 Output Total 1920 1775 375 Balance -900 -975 75 Ertapenem # 18 - Physical Exam General Appearance: alert, no apparent distress EENT: No scleral icterus, No conjunctival petechiae Abdomen: non-tender, other (Wound VAC in place without surrounding erythema; stoma pink), No distended - Line/s RUE PICC Lines: No drainage, No erythema ICD10 Worksheet Patient Problems: Problems Problem Status Onset Perforated diverticulum of large intestine Acute
[2017-04-08] MEDS: LORazepam 1 MG TAB PO PRN (21:28)
[2017-04-09 06:41] LABS: INR 1.49 (0.83-1.16); PROTIME(PATIENT) 18.2 SEC (12.0-15.0)
--- NOTE | 2017-04-09 08:48 | SOAPPROG ---
SOAP Progress Note Assessment/Plan: Assessment: s/p drainage of wound infection/abdominal abscess wound vac/passive drain LUQ colostomy following robotic sigmoid resection complicated by bleeding and anastomotic leak pulmonary embolism Plan: Increase activity/diet as tolerated (high protein recommended) Abx per ID-consultation appreciated wound care with epifix to accelerate wound healing continue anticoagulation with Lovenox/Coumadin until therapeutic discussed transition to [facility] which I anticipate he will be ready for early next week. We discussed timing of reconstructive surgery and I recommended he wait at least 6 months before considering 03/26/17 09:41 04/02/17 14:42 04/08/17 11:08 04/09/17 08:45 04/09/17 08:46 Subjective: resting comfortably/tolerated wound vac change-but still requiring parenteral narcotic analgesics to accomplish Objective: Vital Signs Temp Pulse Resp BP Pulse Ox 37.1 C 84 16 119/76 93 04/09/17 07:36 04/09/17 07:36 04/09/17 07:36 04/09/17 08:08 04/09/17 07:36 Laboratory Results 04/08/17 05:10 04/07/17 05:17 04/08/17 04/09/17 04/10/17 05:59 05:59 05:59 Intake Total 800 900 Output Total 1775 550 Balance -975 350 PT 18.2 SEC (12.0-15.0) H 04/09/17 06:07 INR 1.49 (0.83-1.16) H 04/09/17 06:07 - Pending Discharge Pending Discharge Within 24 Hours: No Pending Discharge Within 48 Hours: No Physical Exam - Physical Exam General Appearance: no apparent distress Abdomen: normal bowel sounds, non-tender, soft, other (wound vac intact/LUQ drain output clearing and diminishing/colostomy functioning well) ICD10 Worksheet Patient Problems: Problems Problem Status Onset Perforated diverticulum of large intestine Acute
[2017-04-09] MEDS: ENOXAPARIN 80 MG/0.8 ML SYR SC SCH ×2 (11:03→21:28)
[2017-04-09] MEDS: FAMOTIDINE 20 MG TAB PO SCH ×2 (11:04→21:27)
[2017-04-09] MEDS: ERTAPENEM 1 GM VIAL IVP SCH (11:04)
[2017-04-09] MEDS: ACETAMINOPHEN 325 MG TAB PO PRN ×2 (11:04→16:36)
--- NOTE | 2017-04-09 11:46 | ASMTCMCOM ---
CM Note CM Note Notes: Yesterday colleague Heather faxed Pt's insurance card to [facility] at their request. Today CM let [facility] know via [employer] to re-evaluate Pt. now that they have copy of Pt's insurance card. Plan to d/c Pt. on Tuesday or later w/ [facility] infusion services and home RN for new ostomy care, IV antibiotics, and wound vac. Wound vac approved and in basement. Await [facility] to see if they can accept Pt. Makayla at [facility] may be able to help with contacts at [facility]. CM to follow. Date Signed: 04/09/2017 11:46 AM Electronically Signed By:Nicky Love LCSW
--- NOTE | 2017-04-09 12:33 | HOSPPROG ---
Hospitalist Progress Note Assessment/Plan: #Polymicrobial peritonitis/multiple abd abscesses associated with sigmoid colectomy anastomosis leak (E coli, Enterobacter, Bacteroides). s/p Carrasco's pouch -Midline abscess larger (CT personally reviewed). s/p bedside drainage 03/27 -03/28 drainage of LUQ and abdominal wall abscess, wound vac -IV Ertapenem through 04/28/17 #Tachycardia: resolved #Acute bilateral pulmonary embolism: -cont Lovenox bridge -Cont Warfarin, INR is not therapeutic yet, reviewed today #Depressed mood/anxiety: situational with acute illness. Mood was stable prior to hospitalization. Educated on SSRI. Will have spiritual services seem him for emotional support. If not effective, can consult Mandi Juarez with ment #Leukocytosis: resolved. Afebrile, blood cultures NGTD #SOB/chest pain: repeat CXR negative for PTX and PICC properly placed #Abdominal pain: controlled on PO dilaudid. Tapered off Gabapentin #Deconditioning: cont out of bed to chair, walking unit. -CM assisting with SNF given numerous cares: wound vac, IV abx, and PT needed #Acute blood loss anemia: 1 unit 03/18. -Still anemic, will follow. #Loose stool, nursing reports loose stool, will hold schedule stool softner. Cont PRN. #insomnia: will provide Benadryl PRN. He does not want ambien. Would like to avoid benzo's as well. #Diet: Regular #DVT ppx: Lovenox Disp: we will continue to follow, please call if questions Plan: Per above. No changes from a medical mgmt perspective. Cont Lovenox and Warfarin as INR is not therapeutic as of yet. Subjective: no complaints, seen walking in halls. no Cp or SOB Objective: Vital Signs Temp Pulse Resp BP Pulse Ox 37.1 C 84 16 119/76 93 04/09/17 07:36 04/09/17 07:36 04/09/17 07:36 04/09/17 08:08 04/09/17 07:36 Laboratory Results 04/08/17 05:10 04/07/17 05:17 04/08/17 04/09/17 04/10/17 05:59 05:59 05:59 Intake Total 800 900 780 Output Total 1775 550 800 Balance -975 350 -20 PT 18.2 SEC (12.0-15.0) H 04/09/17 06:07 INR 1.49 (0.83-1.16) H 04/09/17 06:07 - Physical Exam Constitutional: no apparent distress Eyes: PERRL Ears, Nose, Mouth, Throat: moist mucous membranes Cardiovascular: regular rate and rhythym, No edema Respiratory: no respiratory distress, no rales or rhonchi, clear to auscultation Skin: warm Musculoskeletal: generalized weakness Neurologic: AAOx3 Psychiatric: interacting appropriately, not anxious, not encephalopathic ICD10 Worksheet Patient Problems: Problems Problem Status Onset Perforated diverticulum of large intestine Acute
[2017-04-09] MEDS ORDERED: WARFARIN SODIUM 5 MG TAB PO ONE (16:00)
[2017-04-09] MEDS: diphenhydrAMINE 25 MG CAP PO PRN (21:27)
[2017-04-10 04:58] LABS: INR 1.59 (0.83-1.16); PROTIME(PATIENT) 19.1 SEC (12.0-15.0)
--- NOTE | 2017-04-10 08:14 | SOAPPROG ---
SOAP Progress Note Assessment/Plan: Assessment: s/p drainage of wound infection/abdominal abscess wound vac/passive drain LUQ colostomy following robotic sigmoid resection complicated by bleeding and anastomotic leak pulmonary embolism/INR remains subtherapeutic Plan: Increase activity/diet as tolerated (high protein recommended) Abx per ID-consultation appreciated wound care with epifix to accelerate wound healing continue anticoagulation with Lovenox/Coumadin until therapeutic discussed transition to [facility] which I anticipate he will be ready for early next week. We discussed timing of reconstructive surgery and I recommended he wait at least 6 months before considering 03/26/17 09:41 04/02/17 14:42 04/08/17 11:08 04/09/17 08:45 04/09/17 08:46 04/10/17 08:12 Subjective: resting comfortably Objective: Vital Signs Temp Pulse Resp BP Pulse Ox 36.9 C 85 16 122/77 H 96 04/09/17 23:32 04/09/17 23:32 04/09/17 23:32 04/09/17 23:32 04/09/17 23:32 Laboratory Results 04/08/17 05:10 04/07/17 05:17 04/09/17 04/10/17 04/11/17 05:59 05:59 05:59 Intake Total 900 1940 Output Total 550 1810 Balance 350 130 PT 19.1 SEC (12.0-15.0) H 04/10/17 04:27 INR 1.59 (0.83-1.16) H 04/10/17 04:27 Physical Exam - Physical Exam General Appearance: no apparent distress Respiratory: lungs clear Cardiac/Chest: regular rate, rhythm Abdomen: normal bowel sounds, non-tender, soft, other (wound vac intact, LUQ abscess drain site with minimal drainage/colostomy functioning) Extremities: non-tender, other (no swelling) Neuro/Psych: alert, normal mood/affect, oriented x 3 ICD10 Worksheet Patient Problems: Problems Problem Status Onset Perforated diverticulum of large intestine Acute
[2017-04-10] MEDS: ENOXAPARIN 80 MG/0.8 ML SYR SC SCH ×2 (09:54→21:53)
[2017-04-10] MEDS: FAMOTIDINE 20 MG TAB PO SCH ×2 (09:54→21:53)
[2017-04-10] MEDS: ERTAPENEM 1 GM VIAL IVP SCH (09:57)
--- NOTE | 2017-04-10 11:44 | ASMTCMCOM ---
CM Note CM Note Notes: Per [employer] response, [facility] will look into pt's insurance on Tuesday to determine if they can accept as pt will need HHC RN. CM will follow up with this agency tomorrrow. Date Signed: 04/10/2017 11:43 AM Electronically Signed By:Yolanda Aragon RN
--- NOTE | 2017-04-10 14:26 | HOSPPROG ---
Hospitalist Progress Note Assessment/Plan: #Polymicrobial peritonitis/multiple abd abscesses associated with sigmoid colectomy anastomosis leak (E coli, Enterobacter, Bacteroides). s/p Carrasco's pouch -Midline abscess larger (CT personally reviewed). s/p bedside drainage 03/27 -03/28 drainage of LUQ and abdominal wall abscess, wound vac -IV Ertapenem through 04/28/17 -ID is following #Tachycardia: resolved #Acute bilateral pulmonary embolism: -cont Lovenox bridge -Cont Warfarin, INR is not therapeutic yet, reviewed today #Depressed mood/anxiety: situational with acute illness. Mood was stable prior to hospitalization. Educated on SSRI. Will have spiritual services seem him for emotional support. #Leukocytosis: resolved. Afebrile, blood cultures NGTD #SOB/chest pain: repeat CXR negative for PTX and PICC properly placed #Abdominal pain: controlled on PO dilaudid. Tapered off Gabapentin #Deconditioning: cont out of bed to chair, walking unit. -CM assisting with SNF given numerous cares: wound vac, IV abx, and PT needed #Acute blood loss anemia: 1 unit 03/18. -Still anemic, will follow. #Loose stool, nursing reports loose stool, will hold schedule stool softner. Cont PRN. #insomnia: will provide Benadryl PRN. He does not want ambien. Would like to avoid benzo's as well. #Diet: Regular #DVT ppx: Lovenox Disp: we will continue to follow, please call if questions. Surgery likely planning d/c early this week Plan: Per above. No changes from a medical mgmt perspective. Cont Lovenox and Warfarin as INR is not therapeutic as of yet. Will see again tomorrow Subjective: no overnight event. no new complaints. VS reviewed. Surgery PN reviewed Objective: Vital Signs Temp Pulse Resp BP Pulse Ox 36.6 C 107 H 16 110/74 93 04/10/17 08:00 04/10/17 08:00 04/10/17 08:00 04/10/17 08:00 04/10/17 08:00 Laboratory Results 04/08/17 05:10 04/07/17 05:17 04/09/17 04/10/17 04/11/17 05:59 05:59 05:59 Intake Total 900 1940 Output Total 550 1810 250 Balance 350 130 -250 PT 19.1 SEC (12.0-15.0) H 04/10/17 04:27 INR 1.59 (0.83-1.16) H 04/10/17 04:27 - Physical Exam Constitutional: no apparent distress Eyes: PERRL Ears, Nose, Mouth, Throat: moist mucous membranes, hearing normal Cardiovascular: regular rate and rhythym, no murmur, rub, or gallop, No edema Respiratory: no respiratory distress, no rales or rhonchi, clear to auscultation Gastrointestinal: normoactive bowel sounds Skin: warm Neurologic: AAOx3 Psychiatric: interacting appropriately, not anxious, not encephalopathic Lymph, Heme, Immunologic: No petechiae ICD10 Worksheet Patient Problems: Problems Problem Status Onset Perforated diverticulum of large intestine Acute
[2017-04-10] MEDS ORDERED: WARFARIN SODIUM 5 MG TAB PO ONE (16:00)
[2017-04-10] MEDS: diphenhydrAMINE 25 MG CAP PO PRN (22:03)
[2017-04-11 06:30] LABS: INR 1.51 (0.83-1.16); PROTIME(PATIENT) 18.4 SEC (12.0-15.0)
[2017-04-11] MEDS: ERTAPENEM 1 GM VIAL IVP SCH (09:47)
[2017-04-11] MEDS: FAMOTIDINE 20 MG TAB PO SCH (09:47)
[2017-04-11] MEDS: ENOXAPARIN 80 MG/0.8 ML SYR SC SCH ×2 (09:48→18:04)
[2017-04-11] MEDS ORDERED: oxyCODONE IR 5 MG TAB PO PRN (10:04)
--- NOTE | 2017-04-11 10:10 | SOAPPROG ---
SOAP Progress Note Assessment/Plan: Assessment: Stable to improving. Cont wound VAC, LUQ drain. Plan for d/c with home health when available; d/w patient at length and he feels that it will be manageable. Plan: 03/16/17 09:35 03/17/17 11:20 03/18/17 09:08 03/19/17 10:51 03/20/17 09:45 03/21/17 08:17 03/22/17 11:40 03/23/17 10:55 03/24/17 09:52 03/25/17 13:35 04/11/17 10:07 Subjective: Patient feels better, no pain at baseline. Shoshana po, no N/V. Ambulating with walker due to VAC apparatus. Objective: Vital Signs Temp Pulse Resp BP Pulse Ox 36.8 C 90 16 117/77 95 04/11/17 08:00 04/11/17 08:00 04/11/17 08:00 04/11/17 08:00 04/11/17 08:00 Laboratory Results 04/08/17 05:10 04/07/17 05:17 04/10/17 04/11/17 04/12/17 05:59 05:59 05:59 Intake Total 1940 350 Output Total 1810 675 Balance 130 -325 PT 18.4 SEC (12.0-15.0) H 04/11/17 06:15 INR 1.51 (0.83-1.16) H 04/11/17 06:15 Alert, NAD RRR Abd soft, NTTP VAC in place LUQ drain serosang Ostomy functioning ICD10 Worksheet Patient Problems: Problems Problem Status Onset Perforated diverticulum of large intestine Acute
[2017-04-11] MEDS: HYDROmorphONE/DILAUDID 1 MG/ML INJ IVP PRN (10:43)
--- NOTE | 2017-04-11 11:01 | GDS ---
[f rep st] DISCHARGE SUMMARY PRINCIPAL DIAGNOSIS: Diverticulitis. PRINCIPAL PROCEDURES: 1. Robotic sigmoidectomy. 2. Laparoscopic hematoma evacuation. 3. Raheem's procedure. 4. Wound debridement and abscess drainage. INDICATIONS FOR ADMISSION: This is a 41-year-old male with a history of chronic diverticulitis. Ple ase see history and physical for full details of the procedure. HOSPITAL COURSE: On 03/15/2017, the patient underwent a robotic sigmoid colectomy. Please see the o perative report for full details of the procedure. The patient postoperatively went to the floor and initially did well. However, he developed tachycardia, and a CT scan was obtained on 03/16/2017. [facility] demonstrated hematoma. The patient was taken to the operating room late 03/2013 early 03/2014 fo r laparoscopic evacuation of hematoma. No definitive single bleeding source was identified. Please see the operative report for full details of that procedure. Postoperatively, the patient initially did well. He was sent to the floor initially. The patient pe rsisted with tachycardia, and a CT scan was obtained on 03/18/2017. This demonstrated a leak in the sigmoid anastomosis. He was, therefore, returned to the operating room on 03/18/2017 for exploratory laparotomy and Raheem's procedure. Postoperatively, the patient was admitted to the [facility] for observation. Hospitalist and pulmonary/critical care consultations were obtained. The patient had persistent tachycardia, and infectious disease consultation was obtained. The patient had a rep [facility] CT scan on 03/24/2013. This demonstrated a fluid collection in the left upper quadrant. This wa s drained on 03/25/2017. However, the patient had persistent symptoms, and repeat CT scan on 03/27 d emonstrated persistent collection with additional wound complications. The patient was returned to [facility] operating room on 03/28/2017 for debridement and definitive drainage of the left lower quadrant ab scess. Wound VAC was placed at this time. The patient returned for further debridement and wound VA C placement on 03/30/2017. The patient gradually improved at this point. Physical, occupational the rapy was continued. The patient's oral intake improved, and drainage improved from the left upper qu adrant drain. Ostomy function was excellent. The patient was considered for home care. By 04/11/19, the patient was ambulating independently. He was tolerating wound VAC changes without difficulty at the bedside. The patient was participating in ostomy care. The patient potentially be discharge d on 04/11/2017. /[id number]/MODL
--- NOTE | 2017-04-11 14:54 | WOCRNPDOC ---
GHADA Advanced Assessment Note - Skin Integrity Problem, Advanced Assess Abdomen Surgical Wound/Incision Dressing Type: Black Vac Foam (x1), Contact Layer (x1), White Vac Foam (x1), Wound Vac Dressing Description: Clean/Dry, Intact Exudate Amount: Scant Exudate Characteristic(s): Serosanguinous Integumentary Issue Intervention: Dressing Changed Wound Bed Constitution: Granulation Tissue (95%), Smooth Tissue (5%) Wound Edges: Epithelizing Site Measurement - Head-to-Toe Length X Width X Depth (cm): 12.4x7.2x1.6 Skin Integrity Problem Comment: Wound is granulating very well. Measurements are getting smaller. No concerns. All Amniofill appears to have integrated into wound bed. Rinsed wound bed with ns and dabbed dry. Isha wound skin hair clipped. Skin prep and drape applied isha wound. Applied two layers of versatel to wound bed and then one layer of white foam. This was covered with a medium simplace dressing and restarted vac at -75 mm Hg continuous without leaks. Desire RN in room for care. Dr. Wilde visualized wound. All patient's questions answered. Brochure for [facility] center provided. - Colostomy Assessment, Advanced Left Lower Abdomen Colostomy Stoma Colostomy Appliance Intact: Yes Colostomy Appliance Currently in Use: One Piece Flat, 2 1/4 Stoma Color: Red Stoma Shape: Round Stoma Height: Protruding Slightly (but mostly flush) Colostomy Size - Head-to-Toe Length X Width X Depth (cm): 30mm Colostomy Details: Raheem's Pouch Peristomal Skin: Intact Stomal Complications: Retraction Colostomy Comment/Treatment Details: Education with patient about pouch changes and revisited what to do in case of a leak. Make sure to empty pouch when 1/3 to 1/2 full. Resources including supervisor patching's at [facility] discussed as well as the possible need for convexity in the future. A one piece flat pouch was replaced at this time. Patient will do well with a 1 3/4 appliance when home. 2 1/4 is too large.
--- NOTE | 2017-04-11 15:43 | PDIAF ---
- Diagnosis Diagnosis: Peritonitis, intraabdominal abscess Code Status: Full Code - Medication Management Discharge Medications: Medications to Continue on Transfer Propranolol HCl [Inderal 20mg (*)] 20 mg PO DAILY PRN 05/16/15 [Last Taken 3 Weeks Ago ~02/22/17] Herbals/Supplements -Info Only 1 ea PO DAILY 02/07/17 [Last Taken 1 Week Ago ~] Acetaminophen [Tylenol 325mg (*)] 650 mg PO Q6H PRN tab 04/11/17 [Last Taken Unknown] Alteplase [Cathflo Activase 2 mg (*)] 2 mg IVP PRN PRN vial 04/11/17 [Last Taken Unknown] Enoxaparin [Lovenox 80 MG (*)] 70 mg SC BID #20 syr 04/11/17 [Last Taken Unknown ] Ertapenem [INVanz] 1 gm IVP DAILY #30 vial 04/11/17 [Last Taken Unknown] Warfarin Sodium [Coumadin 5MG (*)] 12.5 mg PO ONCE@1600 tab 04/11/17 [Last Taken Unknown] oxyCODONE IR [Oxycodone Ir (*)] 10 mg PO Q4HRS PRN tab 04/11/17 [Last Taken Unknown] Chcf Antibiotics: Invanz 1 g IV q 24 Chcf Antibiotic Stop Date: 04/28/17 (Dr Lambert- ID) Discharge Medications: Refer to the Discharge Home Medication list for PRN reason. PICC Care - Routine: Yes - Orders Services needed: Home Care, Registered Nurse Home Care Face to Face: I certify that this patient was under my care and that I had the required [id number] encounter meeting the encounter requirements on the discharge day. My findings support the fact that the patient is homebound as defined in Home Care Face to Face Continued: CMS Chapter 7 Medicare Benefits Manual 30.1.1 , The condition of the patient is such that there exists a normal inability to leave home and consequently, leaving home would require a considerable and taxing effort. Isolation Type: Contact Isolation Oxygen: n/a Diet Recommendation: no restrictions on diet Diet Texture: Regular Texture Diet Weigh Patient: weekly Hebert: No Wound Care Instructions: wound vac- per Dr Wilde/director of managed care instructions Activity/Weight Bearing Restrictions: no restrictions - Labs/Radiology CBC w/diff Date: 04/14/17 (Weekly Q Thursday) CMP Date: 04/14/17 (Weekly Q ) PT/INR Date: 04/12/17 (daily until dc by PCP, not therapeutic yet/still on lovenox bid) - Follow Up Care Current Providers and Referrals: NONE *PRIMARY CARE P,. [Unknown] - Fredy Wilde MD [Medical Doctor] - follow up in 1 week Jack Cordova DO [Primary Care Provider] - 04/20/17 2:30 pm (Please come in at 2:00PM to come in paperwork. Bring photo ID, insurance card, copay, and all medications. Need to call him with INRs and when OK to stop lovenox)
[2017-04-11] MEDS ORDERED: WARFARIN SODIUM 5 MG TAB PO ONE ×2 (16:00)
[2017-04-11 16:12] VITALS: BP 120/73; PULSE 92; TEMP 98.4; O2SAT 96
--- NOTE | 2017-04-11 17:04 | PDIAF ---
- Diagnosis Diagnosis: Peritonitis, intraabdominal abscess Code Status: Full Code - Medication Management Discharge Medications: Medications to Continue on Transfer Propranolol HCl [Inderal 20mg (*)] 20 mg PO DAILY PRN 05/16/15 [Last Taken 3 Weeks Ago ~02/22/17] Herbals/Supplements -Info Only 1 ea PO DAILY 02/07/17 [Last Taken 1 Week Ago ~] Acetaminophen [Tylenol 325mg (*)] 650 mg PO Q6H PRN tab 04/11/17 [Last Taken Unknown] Alteplase [Cathflo Activase 2 mg (*)] 2 mg IVP PRN PRN vial 04/11/17 [Last Taken Unknown] Enoxaparin [Lovenox 80 MG (*)] 70 mg SC BID #20 syr 04/11/17 [Last Taken Unknown ] Ertapenem [INVanz] 1 gm IVP DAILY #30 vial 04/11/17 [Last Taken Unknown] Warfarin Sodium [Coumadin 5MG (*)] 12.5 mg PO ONCE@1600 tab 04/11/17 [Last Taken Unknown] oxyCODONE IR [Oxycodone Ir (*)] 10 mg PO Q4HRS PRN tab 04/11/17 [Last Taken Unknown] Shelter Antibiotics: Invanz 1 g IV q 24 Shelter Antibiotic Stop Date: 04/28/17 (Dr Lambert- ID) Discharge Medications: Refer to the Discharge Home Medication list for PRN reason. PICC Care - Routine: Yes - Orders Services needed: Home Care, Registered Nurse Home Care Face to Face: I certify that this patient was under my care and that I had the required [id number] encounter meeting the encounter requirements on the discharge day. My findings support the fact that the patient is homebound as defined in Home Care Face to Face Continued: CMS Chapter 7 Medicare Benefits Manual 30.1.1 , The condition of the patient is such that there exists a normal inability to leave home and consequently, leaving home would require a considerable and taxing effort. Isolation Type: Contact Isolation Oxygen: n/a Diet Recommendation: no restrictions on diet Diet Texture: Regular Texture Diet Weigh Patient: weekly Hebert: No Wound Care Instructions: wound vac- per Dr Wilde/manufacturing maintenance mechanic instructions Activity/Weight Bearing Restrictions: no restrictions - Labs/Radiology CBC w/diff Date: 04/14/17 (Weekly Q Thursday) CMP Date: 04/14/17 (Weekly Q ) PT/INR Date: 04/12/17 (daily until dc by PCP, not therapeutic yet/still on lovenox bid) Call or Fax Lab and Imaging Results to: Dr. Mcqueen, - Follow Up Care Current Providers and Referrals: Patrick Schuler MD [Medical Doctor] - 04/15/17 9:00 am (Please bring photo ID , insurance card, co-pay, and all medications. ) NONE *PRIMARY CARE P,. [Unknown] - Fredy Wilde MD [Medical Doctor] - follow up in 1 week Smita Mcqueen MD [Medical Doctor] - 04/19/17 11:00 am
--- NOTE | 2017-04-11 18:35 | HOSPPROG ---
Hospitalist Progress Note Assessment/Plan: - Polymicrobial peritonitis/sepsis with multiple abd abscesses associated with sigmoid colectomy anastomosis leak (E coli, Enterobacter, Bacteroides). s/p Carrasco's pouch, s/p bedside drainage 03/27, then 03/28 drainage of LUQ and abdominal wall abscess, wound vac IV Ertapenem through 04/28/17, HHC/RN to administer blood cx NGTD -acute pulmonary embolus lovenox while awaiting coumadin therapeutic levels no PA needed per CM #Abdominal pain controlled on PO #Deconditioning home care/RN for wound vac, IV abx, PT #Acute blood loss anemia: s/p 1 unit 03/18 needs recheck/FU with PCP #wt loss secondary to poor intake, prolonged illness discussed diet in general encouraged smoothies/protein, revwd high iron foods Disp: dc today per surgery > 30 mins spent in coordinating care, prescriptions, tarnsition of care, discussion with him re precautions/FU/meds Subjective: Excited and nervous re discharge today. Says pain OK with meds. No n /v/d. No CP/SOB. Objective: Vital Signs Temp Pulse Resp BP Pulse Ox 98.4 F 92 16 120/73 96 04/11/17 16:00 04/11/17 16:00 04/11/17 16:00 04/11/17 16:00 04/11/17 16:00 Laboratory Results 04/08/17 05:10 04/07/17 05:17 04/10/17 04/11/17 04/12/17 11:59 11:59 11:59 Intake Total 1160 350 Output Total 1260 425 Balance -100 -75 PT 18.4 SEC (12.0-15.0) H 04/11/17 06:15 INR 1.51 (0.83-1.16) H 04/11/17 06:15 - Time Spent With Patient Time Spent with Patient: greater than 35 minutes Time Spent with Patient: Greater than 35 minutes spent on this patients care, greater than 50% of time spent counseling, educating, and coordinating care regarding the above mentioned plan. - Pending Discharge Pending Discharge Date: 04/11/17 - Physical Exam Constitutional: no apparent distress, not in pain Ears, Nose, Mouth, Throat: moist mucous membranes Cardiovascular: regular rate and rhythym, No edema Respiratory: no respiratory distress, no rales or rhonchi, clear to auscultation Gastrointestinal: No guarding, No rebound Skin: warm Psychiatric: interacting appropriately, not anxious, not encephalopathic, thought process linear ICD10 Worksheet Patient Problems: Problems Problem Status Onset Perforated diverticulum of large intestine Acute
--- NOTE | 2017-04-12 09:45 | ASDISCHSUM ---
Discharge Information Plan Status:IV ABX/Infusion Medically Cleared to Leave:04/10/2017 Discharge Date:04/11/2017 06:14 PM D/C Disposition:Home Health Service ADT D[facility]C [facility] Projected Discharge Date:04/11/2017 11:00 AM Transportation at D/C:Friend Discharge Delay Reason: Follow-Up Date:04/11/2017 11:00 AM Discharge Slot: Final Diagnosis:Sigmoid diverticulitis Placement Information Referral Type:*Home Health Care Services Referral ID:[id number] Provider Name:[facility] Address 1:[address] Address 2: City:[place] Selection Factors: State:[place] Referral Type:Home Infusion Referral ID:[id number] Provider Name:[facility] Address 1:[address] Address 2: City:[place] Selection Factors: State:[place] Referral Type:*Prison/SNF Referral ID:[id number] Provider Name: Address 1: Phone Number: Address 2: Fax Number: City: Selection Factors: State: [facility] Type:[facility] Referral ID:[id number] Provider Name: Address 1: Phone Number: Address 2: Fax Number: City: Selection Factors: State: Patient Contact Information Contact Name:FELIX Relationship: Address: City: [facility] Phone: State/[facility] Code: Email: Financial Information Financial Class:HMO and PPO Plans Primary Plan Desc:[employer] Primary Plan Number:[id number] Secondary Plan Desc: Secondary Plan Number: Assessment Information [facility] CM Progress Note CM Note CM Note Notes: 03/16/2017 Case Management Note Reviewed chart. Pt had surgery on 03/15/2017 for diverticulitis. There are no PT or OT evals ordered at this time. 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 Case Management d/c poc: to be determined Case Management to follow. Date Signed: 03/16/2017 04:17 PM Electronically Signed By:Macey Vernon RN [facility] CM Progress Note CM Note CM Note Notes: Pt went to OR today, dc needs unclear. 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 Date Signed: 03/18/2017 04:29 PM Electronically Signed By:Mandi Fuller RN [facility] CM Progress Note CM Note CM Note Notes: S/P anastomotic leak-peritonitis, ABX, Tachy, Anemia. Had a partial colostomy now colostomy. PT recommending out- pt Rehab. CM to follow. Date Signed: 03/20/2017 04:44 PM Electronically Signed By:Kirstie Snow LCSW [facility] CM Progress Note CM Note CM Note Notes: Patient has a new ostomy, He thought it would be helpful to have a staff home therapy rn visit him after discharge for ostomy teaching. He reports that he will be homebound for a week. HC can be provided by any agency that contracts with [employer]. This CM is checking with [facility] [phone]. Date Signed: 03/21/2017 02:21 PM Electronically Signed By:Kirstie Snow LCSW [facility] CM Progress Note CM Note CM Note Notes: SEnt a referral to [facility] today. Patient may need RN and PT on discharge. Date Signed: 03/22/2017 09:57 AM Electronically Signed By:Kirstie Snow LCSW [facility] CM Progress Note CM Note CM Note Notes: Spoke with patient about discharge planning. He had questions about home care. His exact needs are TBD, but it is likely he will need home RN and possibly PT. A referral has been sent to [facility]. Per ID, it's too soon to tell if patient will need home IV antibiotics, but we will facilitate that, as well, if it becomes necessary. Patient is supposed to go to tomorrow for draining of his abdomen. Current CM Discharge plan: home with homecare Date Signed: 03/24/2017 02:58 PM Electronically Signed By:Heather Lizarraga RN [facility] CM Progress Note CM Note CM Note Notes: Patient to OR with Dr Guzman today for further drain of his abdominal wound, as well as wound vac placement. His WBC count continues to rise, and he has no fever. Current discharge plan is home with home RN/PT through [facility]. Case Management will continue to assess for ongoing discharge needs. Date Signed: 03/28/2017 09:37 AM Electronically Signed By:Heather Lizarraga RN [facility] CM Progress Note CM Note CM Note Notes: Patient's needs now trending toward inpatient care vs services at home. He is scheduled for a wound vac change in OR tomorrow, still on IV antibiotics, and very deconditioned. I spoke with him and he agrees to a rehab stab before returning home. His insurance company offices are closed today, so we are unable to see which facilities are covered. PT's current recommendation is inpatient rehab; referral sent. Current CM Discharge plan: TBD Date Signed: 03/29/2017 11:51 AM Electronically Signed By:Heather Lizarraga RN [facility] CM Progress Note CM Note CM Note Notes: Spoke w/pt re; dc SNF. [facility], [facility]. CM faxed updated notes to both, dc date still unclear. DC Plan: [facility] Date Signed: 03/31/2017 05:51 PM Electronically Signed By:Mandi Fuller RN [facility] Progress Note CM Note CM Note Notes: Spoke w/pt re; SNF. [facility] declined stating no bed available. D/w pt sending referrals to other SNFs that are a little farther out that can handle complexity of care. Pt is open to this and gives CM permission to send referrals to [facility] and [facility]. DC Plan: [facility] Date Signed: 04/01/2017 10:15 AM Electronically Signed By:Mandi Fuller RN [facility] Progress Note CM Note CM Note Notes: Met with patient to review dc plan of care. He states if he is here another 3 days he may feel well enough to go home with [facility]. As it stands, he may also be accepted to [facility] and [facility] but with copays that haven't been clearly communicated to him. I will ask the other CM to follow up on this on 04/05/17 so he can make informed decision for placement if that is the plan. CM to follow. Date Signed: 04/03/2017 03:43 PM Electronically Signed By:Ena Mays RN [facility] Progress Note CM Note CM Note Notes: CM met w/ pt for dispo planning. Pt would like to see how he feels in the coming days before making a decision about SNF. Pt does not wish to go to rehab if he doesn't need to. Pt hopes to get strong enough to d/c w/ ASHLEY, RN daily. CM called Monae at [facility] to inform her. CM to follow. Plan: TBD Date Signed: 04/05/2017 04:08 PM Electronically Signed By:PK Wheeler [facility] Progress Note CM Note CM Note Notes: Vadim met w/ Pt. in room today to discuss d/c plan. Pt. now confident that he would like to go home with services. Pt. will need wound vac, IV antibiotics, and ostomy care per beside RN. Vadim contacted branch manager trainee Malena Santo RN who assisted in completing wound vac application. CM colleague Heather called Dr. Ballesteros to ask him to complete and sign it - located in hard chart. Makayla from [facility] came to see Pt. r.e. IV infusion services. Makayla concerned about Pt's insurance since he is in between semesters and might not have coverage. Makayla investigating. Vadim called Dionne at [facility] to have Yulia assess Pt's eligibility for Medicaid. Pt. stated he was glad to have met w/ Commercial Account Manager who helped him see his hospital course as a trauma and helped him understand his feelings better. Pt. looking forward to d/c today. May be able to go home Tuesday or Tuesday per RN. Upon SW questioning, Pt. feels he has a lot of good social support. SW to follow for d/c POC. Date Signed: 04/07/2017 05:25 PM Electronically Signed By:Nicky Love LCSW [facility] Progress Note CM Note CM Note Notes: Today Makayla from [facility] confirmed they can provide IV infusion services. Deductible is met. Coverage is at 80% until $5,000. Likely will meet max due to hospitalization. Thus, IV services will likely be covered with no large fees. Wound vac is awaiting approval. Production Operator Malena Santo is managing process. [facility], Family , and [facility] all formerly took [employer]-based insurances ([employer]), but do not anymore. Sent new referal today to [facility] via [employer]. Makayla from [employer] will call her contact at [facility] to assist in getting a home RNFe Fierro met w/ Pt. today. Pt. states he has been told by Dr. Guzman that he will likely d/c at the earliest on Tuesday. CM to follow. Date Signed: 04/08/2017 04:12 PM Electronically Signed By:Nicky Love LCSW [facility] Progress Note CM Note CM Note Notes: Yesterday colleague Heather faxed Pt's insurance card to [facility] at their request. Today CM let [facility] know via [employer] to re-evaluate Pt. now that they have copy of Pt's insurance card. Plan to d/c Pt. on Tuesday or later w/ [facility] and home RN for new ostomy care, IV antibiotics, and wound vac. Wound vac approved and in basement. Await [facility] to see if they can accept Pt. Makayla at [facility] may be able to help with contacts at [facility]. CM to follow. Date Signed: 04/09/2017 11:46 AM Electronically Signed By:Nicky Love LCSW [facility] Progress Note CM Note Note Notes: Per [employer] response, [facility] will look into pt's insurance on Tuesday to determine if they can accept as pt will need [facility] RN. CM will follow up with this agency tomorrrow. Date Signed: 04/10/2017 11:43 AM Electronically Signed By:Yolanda Aragon RN Case Management Discharge Plan Note Case Management Discharge Discharge Order Complete? Answers: Yes Patient to Obtain Answers: Independently Medications Transportation Arranged Answers: Family/Friends EMTALA Complete Answers: No Case Management Transport Answers: No Form Complete Faxed Final Orders Answers: Yes Agency/Facility Transfer Answers: Yes Report Printed & Faxed to Receiving Agency Family Notified Answers: No Discharge Comments Notes: Pt is being discharged today. D/C orders sent to [facility] and [facility]. provided pt w/ phone numbers to both [facility] and [facility]. Pt had [facility] fill his oxy, coumadin and lovanox. Samantha's pharmacist went over medications w/ pt. [facility] will fill his ertapenem. JORJE Hernandez will do the teaching. CM informed Monae at [employer] that pt no longer needs SNF. CM available for changes. Plan: Aracely, ASHLEY; RN Date Signed: 04/11/2017 04:03 PM Electronically Signed By:PK Wheleer Intervention Information
== END 2017-04-11 18:14 | disposition home health service (06) | DRG 329 ==
LOC: F3N 06:02 → F3E 14:09 → F2N 03-18 16:17 → F3E 03-25 14:39
PROVIDERS: ADMIT Internal Medicine; ATTEND Surgery
DX: K57.32 Diverticulitis of large intestine without perforation or abscess without bleeding (principal); T81.4XXA Infection following a procedure, initial encounter; A41.89 Other specified sepsis; K91.870 Postprocedural hematoma of a digestive system organ or structure following a digestive system procedure; T81.32XA Disruption of internal operation (surgical) wound, not elsewhere classified, initial encounter; K65.0 Generalized (acute) peritonitis; D62 Acute posthemorrhagic anemia; J98.11 Atelectasis; J90 Pleural effusion, not elsewhere classified; I26.99 Other pulmonary embolism without acute cor pulmonale; I95.81 Postprocedural hypotension; D72.829 Elevated white blood cell count, unspecified; B96.29 Other Escherichia coli [E. coli] as the cause of diseases classified elsewhere; N50.89 Other specified disorders of the male genital organs; E87.6 Hypokalemia; E86.1 Hypovolemia; K21.9 Gastro-esophageal reflux disease without esophagitis; F41.1 Generalized anxiety disorder; F51.02 Adjustment insomnia; Z87.891 Personal history of nicotine dependence
CPT/HCPCS: 85520-90; 97110-GP; 97112-GP; 97116-GP; 97162-GP; 97165-GO; 97530-GO; 97530-GP; 97535-GO; C1751; J0694; J0697; J1100; J1170; J1335; J1450; J1644; J1650; J1885; J2060; J2250; J2310; J2370; J2405; J2543; J2704; J2765; J2780; J3010; P9016; P9041; Q9967

== ENCOUNTER → 2017-04-19 | Outpatient (CLI) | payer OTHER ==
[~2017-04-19] MED LIST: IOPAMIDOL (ISOVUE-300) 100 ML BTL ONE
== END ==
LOC: FIMAGING 12:29
PROVIDERS: ATTEND Internal Medicine Infectious Disease
DX: J98.4 Other disorders of lung (principal); Z79.2 Long term (current) use of antibiotics
CPT/HCPCS: Q9967

== ENCOUNTER 2017-04-23 16:34 | Emergency (ER) | payer OTHER ==
[2017-04-23 16:42] VITALS: RESP 18; TEMP 98.1; O2SAT 95
--- NOTE | 2017-04-23 16:58 | EDPHY ---
H & P Stated Complaint: Brief sharp pain R mid back (gone now);wants eval for PE Time Seen by Provider: 04/23/17 16:57 HPI/ROS: HPI: This is a 41-year-old male presents with Chief Complaint: Left midback sharp pain; history PE Location: Left midback Quality: Sharp pain Duration: 1 hr prior to arrival Signs and Symptoms: no shortness of breath at rest, no shortness of breath on exertion, no cough, no chest pain, no palpitations, no lower extremity edema, no wheezing, no orthopnea, no paroxysmal nocturnal dyspnea, no fever, no injury/ trauma, no hemoptysis, + spasm Timing: Sudden, self-resolved Severity: Moderate Context: Patient reports that he was diagnosed with a pulmonary embolism on the right approximately 3 weeks ago after an extended complicated hospital stay at this facility. He was lying recumbent working on his computer approximately 1 hr prior to arrival when he felt a sharp pain in his posterior left chest near his thoracic spine that lasted approximately 10 min and was nonradiating in nature. He is currently taking Coumadin last INR level was 1.9. Because he has been having difficulty keeping above 2 he has also been taking Lovenox 1 milligram/kilogram injections daily. He has taken his Lovenox injection today and his Coumadin is due at this evening. He reports compliance on taking his anticoagulation therapy. He denies any trauma/injury/over exertion/shortness of breath/chest pain. He believes that it may just be a muscle spasm due to the position he was in for an extended period of time but wanted to come to the emergency room to evaluate for any further complication due to his history of pulmonary embolism. Pain resolved on its own without any interventions. Patient denies any cough, fever, shortness of breath, palpitations. Modifying Factors: None Comment: ROS: see HPI Constitutional: No fever, no chills, no weight loss Eyes: No blurred vision Respiratory: No shortness of breath, no cough Cardiovascular: No chest pain, no palpitations, no lower extremity edema Gastrointestinal: No nausea, no vomiting, no diarrhea Genitourinary: No dysuria Extremities: No myalgias Neurologic: No weakness, no numbness Skin: No rashes Hematologic: No bruising, no bleeding MEDICAL/SURGICAL/SOCIAL HISTORY: Medical history: Generally healthy. Does not take any regular medications. Surgical history: Denies Social history: Comment: ROS: see HPI Constitutional: No fever, no chills, no weight loss Eyes: No blurred vision Respiratory: No shortness of breath, no cough Cardiovascular: No chest pain, no palpitations, no lower extremity edema Gastrointestinal: No nausea, no vomiting, no diarrhea Genitourinary: No dysuria Extremities: No myalgias Neurologic: No weakness, no numbness Skin: No rashes Hematologic: No bruising, no bleeding MEDICAL/SURGICAL/SOCIAL HISTORY: Medical history: Anxiety, pulmonary embolism on Coumadin Surgical history: Denies Social history: Employed. CONSTITUTIONAL: Well-appearing adult white male, polite and cooperative, nontoxic appearance, awake and alert, no obvious distress HEENT: Atraumatic and normocephalic. NECK: supple, no midline tenderness, flexion 45 degrees, extension 45 degrees, right and left lateral flexion 45 degrees. No meningismus. Cardiovascular: Normal S1/S2, mild tachycardia, regular rhythm, without murmur rub or gallop. PULMONARY/CHEST: Symmetrical and nontender. no crepitus. Clear to auscultation bilaterally. Good air movement. No accessory muscle usage. ABDOMEN: Soft, nondistended, nontender, no ecchymosis. BACK: No midline tenderness, no paraspinous spasm, deep tendon reflexes 2/2, no pain with straight leg raise, able to walk on toes and heels without difficulty EXTREMITIES: 2/2 pulses, no deformities, no clubbing, no cyanosis or edema. NEUROLOGICAL: no focal neuro deficits. GCS 15. Light touch sensation intact. SKIN: Warm and dry, no erythema. no rash. Good capillary refill. Source: Patient Exam Limitations: No limitations - Personal History Current Tetanus Diphtheria and Acellular Pertussis (TDAP): No - Medical/Surgical History Hx Asthma: No Hx Chronic Respiratory Disease: No Hx Diabetes: No Hx Cardiac Disease: No Hx Renal Disease: No Hx Cirrhosis: No Hx Alcoholism: No Hx HIV/AIDS: No Hx Splenectomy or Spleen Trauma: No Other PMH: anxiety. PE - Social History Smoking Status: Former smoker Constitutional: Initial Vital Signs Temperature (C) 36.7 C 04/23/17 16:39 Heart Rate 104 H 04/23/17 16:39 Respiratory Rate 18 04/23/17 16:39 Blood Pressure 122/86 H 04/23/17 16:39 O2 Sat (%) 95 04/23/17 16:39 O2 Delivery Mode Room Air O2 (L/minute) 95 Allergies/Adverse Reactions: No Known Allergies Allergy (Verified 04/23/17 16:39) Home Medications: Medication Instructions Recorded Propranolol HCl [Inderal 20mg (*)] 20 mg PO DAILY PRN 05/16/15 Acetaminophen [Tylenol 325mg (*)] 650 mg PO Q6H PRN tab 04/11/17 Enoxaparin [Lovenox 80 MG (*)] 70 mg SC BID #20 syr 04/11/17 Warfarin Sodium [Coumadin 5MG (*)] 12.5 mg PO ONCE@1600 tab 04/11/17 oxyCODONE IR [Oxycodone Ir (*)] 10 mg PO Q4HRS PRN tab 04/11/17 Medical Decision Making ED Course/Re-evaluation: Labs ordered Patient prefers to start with laboratory examination cleaning a D-dimer verses imaging due to his history of receiving multiple doses of IV contrast. No hypoxia/respiratory distress Afebrile with mild tachycardia noted upon arrival. Labs reviewed and D-dimer within normal limits. INR 1.67; Lovenox 70 mg given Patient is to follow up with his primary care provider in the next 2-3 days for repeat INR evaluation. This patient was seen under the supervision of my primary supervising physician. I evaluated care for this patient independently. Discussed this patient with Dr. Huggins who did not see the patient. Patient's presentation, labs /imaging, treatment and plan of care were discussed with secondary supervising physician. Differential Diagnosis: Differential diagnosis includes but is not limited to pulmonary embolism, thoracic degenerative disc disease, thoracic strain. - Data Points Laboratory Results: Laboratory Results 04/23/17 16:57 04/23/17 16:57 04/23/17 04/23/17 04/23/17 16:57 16:57 16:57 WBC 7.03 10^3/uL 10^3/uL (3.80-9.50) RBC 4.49 10^6/uL 10^6/uL (4.40-6.38) Hgb 12.7 g/dL L g/dL (13.7-17.5) Hct 38.5 % L % (40.0-51.0) MCV 85.7 fL fL (81.5-99.8) MCH 28.3 pg pg (27.9-34.1) MCHC 33.0 g/dL g/dL (32.4-36.7) RDW 15.4 % H % (11.5-15.2) Plt Count 414 10^3/uL H 10^3/uL (150-400) MPV 8.8 fL fL (8.7-11.7) Neut % (Auto) 33.5 % L % (39.3-74.2) Lymph % (Auto) 50.8 % H % (15.0-45.0) [place] % (Auto) 7.7 % % (4.5-13.0) Eos % (Auto) 6.3 % % (0.6-7.6) Baso % (Auto) 1.6 % % (0.3-1.7) Nucleat RBC Rel Count 0.0 % % (0.0-0.2) Absolute Neuts (auto) 2.36 10^3/uL 10^3/uL (1.70-6.50) Absolute Lymphs (auto) 3.57 10^3/uL H 10^3/uL (1.00-3.00) Absolute Monos (auto) 0.54 10^3/uL 10^3/uL (0.30-0.80) Absolute Eos (auto) 0.44 10^3/uL H 10^3/uL (0.03-0.40) Absolute Basos (auto) 0.11 10^3/uL H 10^3/uL (0.02-0.10) Absolute Nucleated RBC 0.00 10^3/uL 10^3/uL (0-0.01) Immature Gran % 0.1 % % (0.0-1.1) Immature Gran # 0.01 10^3/uL 10^3/uL (0.00-0.10) PT 19.8 SEC H SEC (12.0-15.0) INR 1.67 H (0.83-1.16) D-Dimer 0.37 ug/mLFEU ug/mLFEU (0.00-0.50) Sodium 142 mEq/L mEq/L (135-145) Potassium 4.1 mEq/L mEq/L (3.5-5.2) Chloride 100 mEq/L mEq/L (97-110) Carbon Dioxide 27 mEq/l mEq/l (22-31) Anion Gap 15 mEq/L mEq/L (8-16) BUN 13 mg/dL mg/dL (7-23) Creatinine 0.7 mg/dL mg/dL (0.7-1.3) Estimated GFR > 60 Glucose 95 mg/dL mg/dL (70-100) Calcium 10.1 mg/dL mg/dL (8.5-10.4) Departure - Departure Disposition: Home, Routine, Self-Care Clinical Impression: Anticoagulated on Coumadin, Subtherapeutic international normalized ratio (INR) , Spasm of thoracic back muscle Pulmonary embolism Qualifiers: Pulmonary embolism type: other Chronicity: chronic Acute cor pulmonale presence : without acute cor pulmonale Qualified Code(s): I27.82 - Chronic pulmonary embolism Condition: Good Instructions: Warfarin (By mouth), Pulmonary Embolism (DC) Additional Instructions: Please follow-up vitamin K controlled diet. Take Coumadin and Lovenox injections as directed. Follow-up with your primary care provider in 2-3 days for repeat INR evaluation and discussion of Coumadin dose adjustment. Referrals: Patrick Schuler MD [Primary Care Provider] - As per Instructions
[2017-04-23 17:20] LABS: PLATELET COUNT 414 10^3/uL (150-400)
[2017-04-23 18:37] LABS: INR 1.67 (0.83-1.16); PROTIME(PATIENT) 19.8 SEC (12.0-15.0)
[2017-04-23] MEDS ORDERED: ENOXAPARIN 80 MG/0.8 ML SYR SC ONE (18:44)
[2017-04-23 19:13] VITALS: BP 120/64; PULSE 93
== END 2017-04-23 19:13 | disposition home or self-care (01) ==
DX: M62.830 Muscle spasm of back (principal); R79.1 Abnormal coagulation profile; I27.82 Chronic pulmonary embolism; Z79.01 Long term (current) use of anticoagulants; Z87.891 Personal history of nicotine dependence
CPT/HCPCS: J1650